=== PATIENT | female | born 1985 | race African-American/Black ===

== ENCOUNTER 2016-10-30 23:23 | Emergency (ER) | payer OTHER ==
[~2016-10-30 23:23] MED LIST: ALBUTEROL17 GM INH; ALDACTONE PO; ALDACTONE100 MG PO; ALPRAZOLAM PO; ALUMINUM POTAS PO; AMOXICILLIN PO; AMOXICILLIN500 M1 PO; AURALGAN OTIC S10 ML AD; AURALGAN OTIC S14 ML OT; BUMEX PO; CARAFATE PO; CARAMEL FLAVOR30 ML PO; CATAFLAM50 MG PO; CHRONULAC10 GM/151 PO; CIPRO HC OTIC S10 ML AD; CIPRO PO; COREG12.5 MG PO; CORGARD PO; DILTIAZEM HCL30 MG PO; FERROUS SULFATE PO; FLAGYL PO; IMURAN50 MG PO; KRISTALOSE10 GM PO; LACTULOSE10 G/15 M1 PO; LACTULOSE10 G/15 M2 PO; LACTULOSE10 G/15 ML PO; LASIX PO; LEVAQUIN PO; LORTAB 5/500 TA1 TA1 PO; MAG-OX 400400 MG PO; NADOLOL20 MG PO; NAPROSYN500 MG PO; NICOTINE TRANSD14 MG EXT; OMEPRAZOLE20 M2 PO; OXYCODONE HCL20 M1 PO; PERCOCET5/325 PO; PHENERGAN PO; PHENERGAN25 MG PO; PREDNISONE PO; PRILOSEC PO; PRILOSEC40 MG PO; PROMETHAZINE12.5 MG PO; PROPRANOLOL HCL20 MG PO; PROTONIX PO; REPREXAIN 7.5-21 TAB PO; ROBAXIN 750750 MG PO; SEROQUEL XR150 MG PO; TRAMADOL HCL50 M2 PO; TUMS500 M1 PO; ULTRAM PO; XANAX1 MG PO; XIFAXAN550 MG PO; XODOL 7.5-300 T1 TAB PO; ZITHROMAX PO; lactulose
[2016-10-31 00:21] LABS: BASOPHIL% 0.1 % (0-2.5); EOSINOPHIL# 0.2 X10e3 (0-0.7); EOSINOPHIL% 3.1 % (0.0-7.0); HEMATOCRIT 29.3 % (35.0-45.0); LYMPHOCYTE# 0.7 X10e3 (1.0-3.5); LYMPHOCYTE% 11.1 % (17.0-45.0); MEAN CELL VOLUME 95.5 FL (83-96); MEAN CORPUSCULAR HEMOGLOBIN 32.7 PG (28-34); MEAN CORPUSCULAR HGB CONC 34.2 g/dL (30-36); MEAN PLATELET VOLUME 9.4 FL (6.5-11.5); MONOCYTE# 0.5 X10e3 (0-1.0); MONOCYTE% 8.1 % (3.0-12.0); NEUTROPHIL# 5.1 X10e3 (1.5-7.1); NEUTROPHIL% 77.6 % (40-75); RED BLOOD COUNT 3.07 X10e (3.90-5.30); RED CELL DISTRIBUTION WIDTH 17.2 % (11.0-15.5); WHITE BLOOD COUNT 6.6 X10e3 (4.0-10.5)
[2016-10-31 00:45] LABS: BILIRUBIN,INDIRECT 5.6 mg/dL (0.0-0.9); BILIRUBIN,TOTAL 7.6 mg/dL (0.2-2.0); CALCIUM SERUM 7.5 mg/dL (8.4-10.2); CREATININE SERUM 0.8 mg/dL (0.6-1.4); GLOM FILT RATE Estimated 115.6 mL/min (>60); POTASSIUM 4.2 mmol/L (3.5-5.1); PROTEIN TOTAL SERUM 5.7 g/dL (6.0-8.3)
[2016-10-31 01:11] LABS: DIFF IND YES; PLATELET COUNT 47 X10e3 (140-420)
[2016-10-31 01:13] LABS: PLATELET ESTIMATE DECREASED (NORMAL)
[2016-10-31 01:14] LABS: BURR CELLS PRESENT; ROULEAUX SLIGHT
== END 2016-10-31 04:15 | disposition home or self-care (01) ==
LOC: CED 23:23
PROVIDERS: Emergency Medicine
DX: G89.29 Other chronic pain (principal); R10.9 Unspecified abdominal pain; K75.4 Autoimmune hepatitis; I11.0 Hypertensive heart disease with heart failure; I50.9 Heart failure, unspecified; J45.909 Unspecified asthma, uncomplicated; F17.210 Nicotine dependence, cigarettes, uncomplicated; Z88.5 Allergy status to narcotic agent; Z88.8 Allergy status to other drugs, medicaments and biological substances
CPT/HCPCS: 36415; 71010; 80048; 80076; 81003; 82140; 82150; 82553; 83605; 83690; 83880; 84484; 84703; 85025; 85610; 86850; 86885; 86900; 86901; 86922; 87086; 87651; 93005; 96365; 96367; 96372; 96375; 96376; 99284; C9113; J0696; J1170; J1200; J2270; J2550; J2765

== ENCOUNTER 2016-11-15 00:19 | Emergency (ER) | payer OTHER ==
[2016-11-15 03:28] LABS: URINE SOURCE CLEAN CATCH
[2016-11-15 03:29] LABS: URINE APPEARANCE CLOUDY; URINE BACTERIA AUWI NEG (NEGATIVE); URINE BLOOD TRACE (NEG); URINE COLOR DK YELLOW; URINE GLUCOSE NEG (NEG); URINE KETONE NEG (NEG); URINE LEUKOCYTE ESTERASE TRACE (NEG); URINE NITRATE NEG (NEG); URINE PROTEIN NEG (NEG); URINE SPECIFIC GRAVITY 1.013 (1.003-1.035); URINE SQUAMOUS EPITHELIAL CELL NONE SEEN /[HPF]
[2016-11-15 03:31] LABS: BASOPHIL% 0.4 % (0-2.5); EOSINOPHIL# 0.1 X10e3 (0-0.7); EOSINOPHIL% 2.4 % (0.0-7.0); HEMATOCRIT 26.3 % (35.0-45.0); HEMOGLOBIN 9.1 gm/dL (12.0-16.0); LYMPHOCYTE# 0.6 X10e3 (1.0-3.5); LYMPHOCYTE% 17.2 % (17.0-45.0); MEAN CELL VOLUME 92.3 FL (83-96); MEAN CORPUSCULAR HEMOGLOBIN 31.9 PG (28-34); MEAN CORPUSCULAR HGB CONC 34.6 g/dL (30-36); MEAN PLATELET VOLUME 8.6 FL (6.5-11.5); MONOCYTE# 0.5 X10e3 (0-1.0); MONOCYTE% 12.8 % (3.0-12.0); NEUTROPHIL# 2.5 X10e3 (1.5-7.1); NEUTROPHIL% 67.2 % (40-75); RED BLOOD COUNT 2.85 X10e (3.90-5.30); RED CELL DISTRIBUTION WIDTH 17.5 % (11.0-15.5); WHITE BLOOD COUNT 3.8 X10e3 (4.0-10.5)
[2016-11-15 03:37] LABS: AMPHETAMINE NEG (NEG); BARBITURATES NEG (NEG); BENZODIAZEPINES NEG (NEG); COCAINE NEG (NEG); MARIJUANA POS (NEG); OPIATES NEG (NEG); TRICYCLIC ANTIDEPRESSANTS NEG (NEG); U METHADONE NEG (NEG)
[2016-11-15 03:46] LABS: CULTURE INDICATED? NO; URINE BILIRUBIN POS (NEG); URINE CRYSTALS CALCIUM OXALATE /[HPF]
[2016-11-15 03:50] LABS: DIFF IND YES; PLATELET COUNT 56 X10e3 (140-420)
[2016-11-15 03:55] LABS: ALKALINE PHOSPHATASE 131 U/L (32-92); ALT (SGPT) 23 U/L (10-40); AMYLASE 27 U/L (0-46); AST (SGOT) 34 U/L (10-42); BILIRUBIN, DIRECT 0.9 mg/dL (0.0-0.2); BILIRUBIN,INDIRECT 2.5 mg/dL (0.0-0.9); BILIRUBIN,TOTAL 3.4 mg/dL (0.2-2.0); BLOOD UREA NITROGEN <5 mg/dL (9-23); CALCIUM SERUM 7.6 mg/dL (8.4-10.2); CARBON DIOXIDE 30 mmol/L (22-31); CHLORIDE 97 mmol/L (100-111); CREATININE SERUM 0.5 mg/dL (0.6-1.4); GLOM FILT RATE Estimated 151.6 mL/min (>60); GLUCOSE FASTING 110 mg/dL (70-110); LIPASE 27 U/L (22-51); PROTEIN TOTAL SERUM 5.4 g/dL (6.0-8.3); SODIUM 129 mmol/L (135-145)
[2016-11-15 03:56] LABS: POTASSIUM 2.8 mmol/L (3.5-5.1)
[2016-11-15 04:08] LABS: ANISOCYTOSIS SL; PLATELET ESTIMATE DECREASED (NORMAL)
== END 2016-11-15 06:35 | disposition home or self-care (01) ==
LOC: CED 00:19
PROVIDERS: Student in an Organized Health Care Education/Training Program
DX: E87.6 Hypokalemia (principal); G89.29 Other chronic pain; K75.9 Inflammatory liver disease, unspecified; F17.210 Nicotine dependence, cigarettes, uncomplicated; K74.60 Unspecified cirrhosis of liver; Z88.6 Allergy status to analgesic agent; Z88.8 Allergy status to other drugs, medicaments and biological substances; Z98.890 Other specified postprocedural states
CPT/HCPCS: 36415; 80048; 80076; 80307; 81003; 82150; 83690; 84703; 85025; 96372; 96374; 99284; J1170; J2550

== ENCOUNTER 2016-11-21 05:39 | Inpatient (IN) | payer OTHER ==
--- NOTE | ~2016-11-21 | DS ---
Unit #: [id number] #: [id number] Patient: CARIN HEMPHILL [id number] [address] [address] [id number] I MR#: [id number] NAME: CARIN HEMPHILL. ROOM: 573 Age: 31 Sex: F Admission Date: 11/21/2016 : 1985 Discharge Date: 11/27/2016 Attending Physician: Jazz Choe M.D. Primary Care Physician: Daniel Dietrich M.D. DISCHARGE SUMMARY DISCHARGE DIAGNOSES 1. Nausea and vomiting. 2. Cirrhosis of the liver. 3. Extended tagwyqsm-mgut-lzxnezcop urinary tract infection. 4. Hepatic encephalopathy. 5. Hypokalemia. 6. Hypomagnesemia. 7. Hyponatremia. HOSPITAL COURSE The patient is a 31-year-old female who presented 11/21/16 secondary to some abdominal pain. She has a history of liver cirrhosis. Patient was started on lactulose, Protonix, and rifaximin. She was started on IV Zosyn for possible gram-negative bacteremia, which was picked up on hospital day two. Patient's mental status stabilized on the lactulose. She underwent large volume paracentesis without incident. The patient's pain control was also modified with increase of her narcotic medicines. Ultimately, the patient's cultures returned growing ESBL producing E. coli. Her antibiotics were switched to Merrem. Patient continued on IV antibiotics and pain control and had placement of a PICC line for IV Merrem once her blood cultures drawn November 23 returned negative. Once the PICC line was placed, the patient was discharged home to continue IV antibiotics for her ESBL. DISCHARGE MEDICATIONS 1. Lactulose 20 g p.o. q.8 hours. 2. Magnesium oxide 400 mg p.o. b.i.d. 3. Phenergan 25 mg p.o. q.4 hours p.r.n. 4. SEROquel 50 mg daily. 5. Nadolol 20 mg p.o. daily. 6. Bumex 2 mg p.o. b.i.d. 7. ProAmatine 10 mg p.o. t.i.d. 8. Eplerenone 50 mg p.o. daily. 9. Oxycodone/acetaminophen 20 mg p.o. t.i.d. 10. Protonix 40 mg p.o. b.i.d. 11. Home on Merrem 500 mg IV q.8 hours through 12/07. FOLLOWUP Patient should follow up with her primary care provider at the end of her antibiotic course. Unit #: [id number] #: [id number] Patient: CARIN HEMPHILL Dictated by... Dave Cardoza/siena TD: 12/08/2016 08:27 JOB #: [id number] DISCHARGE SUMMARY Page 1 of 1 X Chadwick Alberts MD X DISCHARGE SUMMARY
--- NOTE | ~2016-11-21 | XA170 ---
[facility] A Service of [facility] RADIOLOGY TEXT RESULTS PATIENT: CARIN HEMPHILL LOCATION: [place] [address]- : 87 UNIT #: [id number] AGE: [address]: Jazz Choe MD SEX: F ORDER DR: [id number] [facility] [address] [facility] [place], [place] [address] [id number] I MR#: [id number] Acc #: [id number] NAME: CARIN HEMPHILL : 1985 SEX: F STUDY DATE/TIME: 11/24/2016 13:28 UNIT: [facility] ROOM: [facility] STUDY DESCRIPTION: XA Paracentesis W Image Attending Physician: Jazz Choe M.D. Ordering Physician: Patrice Lala M.D. Primary Care Physician: Daniel Dietrich M.D. MEDICAL IMAGING REPORT This report is preliminary unless electronic signature is present EXAM Paracentesis INDICATION Autoimmune hepatitis with cirrhosis. PROCEDURE The risks, benefits, and alteratives to the procedure were explained to the patient, and signed, informed consent was obtained. Preliminary ultrasound of the abdomen was performed; it did not show sufficient volume of fluid for safe paracentesis at this time, especially given this patient's coagulopathy. The procedure was subsequently terminated. IMPRESSION Insufficient volume of fluid for safe paracentesis at this time. Dictated by... Tania Fortune M.D. THIS IS AN ELECTRONICALLY VERIFIED REPORT Tania Fortune M.D. at 11/25/2016 4:41 PM AFF/js TD: 11/25/2016 11:10 JOB #: [id number] MEDICAL IMAGING REPORT Page 1 of 1 COPY
--- NOTE | ~2016-11-21 | FU ---
[facility] Nutrition Therapy DATE: 11/25/16 Patient: CARIN HEMPHILL Physician: KRISTIE Address: [address] [place] [address] Room/Bed: [address] [place] [address], Zip: [place] [address] Admit Date: 11/21/16 Date of : [birth year] Height: 6 2 Weight: 164 74.4 NUTRITION MONITORING/FOLLOW-UP: Reason: follow-up Dx: 31 y/o female admitted for nausea/vomiting Anthropometrics: ht: 6'2" wt: 150# (per pt) (68 kg) BMI 19.3 88% IBW -meditech weight 164# 11/25 Labs: Na+ 131, K+ 2.6, Cl- 97, Glu 111, BUN 7, Creat 0.5, Ca++ 7.5, Alb 2.0, Mg++ 1.3, NH3+ 56, Prealb 3.6 Meds: mag-ox, nadolol, NaCl, roxicodone, lactulose, bumetanide, phenergan, KCl I&O's: 1400/7. BM 11/24 Skin: none noted. Estimated Nutrition Needs: Increased needs 2' pt underweight, PMH, current condition, ?weight loss noted Assessment: Chart reviewed, events noted. RD application support intern visited pt at bedside. Pt was very lethargic and spoke few words but did nod her head yes/no when asked questions. When asked if she ate all of her lunch and breakfast, pt nodded no. When asked if she ate less than half of her meals, pt nodded yes. RD application support intern asked if pt had a poor appetite or nausea and pt nodded yes to both. RD application support intern offered to order ensure supplements to increase pt's protein/kcal intake, pt nodded yes and said she would like strawberry ensure. RD application support intern encouraged pt to eat what she can and drink ensure to prevent further weight loss. RD will continue to follow. Dx: Underweight r/t PMH AEB low BMI of 19.3, 88% IBW -ACTIVE 2) Decreased nutrient intake r/t decreased appetite, n/v AEB pt reported intake <50% of meals Intervention: 1. 2 gm NA diet 2. ensure supplements TID Monitoring, Evaluation and Goals: 1. Oral intake; consume >50% of meals w/no c/o n/v/d -NOT MET 2. Weight; prevent any further unintentional weight loss; promote healthy weight gain -IN PROGRESS 3. Labs; WNL -NOT MET [facility] Nutrition Therapy DATE: 11/25/16 Patient: CARIN HEMPHILL Physician: KRISTIE Address: [address] [place] [address] Room/Bed: [address] [place] [address], Zip: [place] [address] Admit Date: 11/21/16 Date of : [birth year] Height: 6 2 Weight: 164 74.4 4. GI; promote regular GI function -IN PROGRESS ( 11/24) Monitor -PO intake/appetite -weight -Labs Recommendations: 1. Ensure strawberry TID. 2. Replete lytes- K+, Mg++, Na+, Cl- low. 3. Continue current diet order above. Add 6 small meals to current diet order. 4. Encourage adequate PO intake of meals and supplements. RD will f/u per protocol as pt is at mild/moderate nutritional risk. Respectfully, VENCEIA WHEATLEY, international freight forwarder Gutierrez Bhatt MS, RD, LD Food and Nutritional Services [facility] cc: client file
--- NOTE | ~2016-11-21 | CO ---
Unit #: [id number] #: [id number] Patient: CARIN HEMPHILL [id number] [place] [id number] [facility]. [place], [place] [address] [id number] I MR#: [id number] NAME: CARIN HEMPHILL ROOM: 573 Age: 31 Sex: F Admission Date: 11/21/2016 : 1985 Attending Physician: Jazz Choe M.D. Primary Care Physician: Daniel Dietrich M.D. Consultation Date: 11/23/2016 CONSULTATION REPORT REASON FOR CONSULTATION Gram-negative lizzy bacteremia. HISTORY OF PRESENT ILLNESS This is a 31-year-old female who has a significant past medical history. The patient's history is obtained via the chart, discussion with microbiology at [facility], old chart from [facility] and current chart from [facility]. The patient has a history of autoimmune hepatitis with cirrhosis with associated ascites. The patient has had multiple admissions to hospitals secondary to abdominal pain. The patient reports that she has been home approximately 4 days; however, the last discharge note reports that she was discharged on 11/10/2016. At that time the patient was admitted for ascites. She had a paracentesis that was not sent for any cultures, and she had no leukocytosis or fever and was sent home with followup with the GI service. The patient now returns with similar complaints of abdominal pain without fever; however, this time she was noted to have gram-negative bacteremia, and infectious disease was consulted. The patient has been placed on Zosyn, and she is currently awaiting a paracentesis and is being followed by the GI team here, as well. PAST MEDICAL HISTORY 1. Autoimmune hepatitis with cirrhosis and ascites. 2. Congestive heart failure. 3. History of ESBL E-coli urinary tract infection in May of 2016. 4. Alcohol abuse; however, the patient denies. 5. Beta hemolytic strep sepsis in 2013. 6. Anemia. 7. C. diff. infection in 2013. 8. Anxiety. 9. Depression. 10. Esophageal varices. 11. Hepatic encephalopathy. 12. Hypertension. 13. Danya-Cai tear in 2013. 14. Marijuana abuse. 15. MRSA infection in 2015. 16. Pancytopenia secondary to liver disease. 17. Portal hypertension. 18. Splenomegaly. 19. SBP. 20. Thrombocytopenia. Unit #: [id number] #: [id number] Patient: CARIN HEMPHILL PAST SURGICAL HISTORY 1. Bone marrow biopsy. 2. Colonoscopy. 3. EGD. 4. Lap-Band. 5. Liver biopsy. 6. Paracentesis. 7. Spine surgery. ALLERGIES Morphine, ELOY inhibitors, acetaminophen, Aldactone, codeine, hydrocodone and Zofran. The patient denies any antibiotic allergies. MEDICATIONS The patient is currently on Zosyn. For other medications, please refer to the patient's MAR. SOCIAL HISTORY The patient denies any alcohol abuse to me; however, per the notes, she has recent alcohol use approximately 5 years ago. She has positive tobacco abuse, occasional marijuana use. Denies any IV drug abuse. REVIEW OF SYSTEMS The patient denies any fevers, chills, sweats. She denies any shortness of air. She does report some occasional chest discomfort with deep inspiration. She reports abdominal pain but no significant diarrhea. She denies any vomiting to me but positive nausea. She denies any swelling or nonhealing wounds. PHYSICAL EXAMINATION VITAL SIGNS: Temperature is 98.8, pulse 94, blood pressure 90/49, respiratory rate 16. . GENERAL: This is a female in no apparent distress who is sitting up in the bed comfortably. HEENT: Her pupils are equal. NECK: Her neck is supple. CARDIOVASCULAR: S1, S2. Regular rate and rhythm. PULMONARY: Shallow inspiration; however, clear with no evidence of wheezes or rhonchi noted. ABDOMEN: Positive bowel sounds. Somewhat rounded but no significant distention and soft. EXTREMITIES: No clubbing, cyanosis or edema. DIAGNOSTIC STUDIES LABS: BUN 11, creatinine 0.7, sodium 128, potassium 3.7, chloride 97, CO2 27, bilirubin 5.3, AST 31, ALT 24, alkaline phosphatase 93, lipase 30, amylase 27. CK was not checked this admission. Ammonia is 56, which is improved from 86 on admission. Lactic acid was not checked this admission. White blood cell count 6.5, hemoglobin 8.4, hematocrit 24.9, platelets 36, 4% bands. Urinalysis is fairly unremarkable. Blood cultures show 1 of 2 gram-negative rods. DIAGNOSTIC IMAGING: None available this admission. IMPRESSION This is a 31-year-old female with autoimmune hepatitis with multiple admissions to an outside hospital secondary to ascites. The patient had recent paracentesis in early November of this year; however, it was not sent Unit #: [id number] #: [id number] Patient: CARIN HEMPHILL for any culture or cell count. The patient now returns with abdominal pain and some nonspecific complaints. The patient is now showing gram-negative lizzy bacteremia resembling E-coli in one of two blood cultures. With history of ESBL in the past, would recommend just changing Zosyn to meropenem. The patient has no evidence of urinary tract infection, as UA is negative and she denies any symptoms. Other possibilities include questionable SBP, and the patient is awaiting a paracentesis. We will follow up on cell count and culture. GI is also following along with this patient. The patient also has significant pancytopenia/thrombocytopenia secondary to her liver disease, and GI is also following. Will check a CBC in the a.m. Will repeat blood cultures x2 thirty minutes apart. Will place the patient in contact isolation secondary to history of ESBL infection in May of 2016 and follow along with the patient's final culture results. The patient may require CT scan of the abdomen and pelvis pending the patient's paracentesis results, but will determine due to the patient's ongoing clinical status. Thank you for allowing us to participate in the care of this patient. Further recommendations to follow pending the patient's clinical course. Dictated by... Trena Granados A.P.R.N. for Dave Velazquez/otis TD: 11/23/2016 11:20 JOB #: [id number] CONSULTATION REPORT Page 1 of 1 X X CONSULTATION REPORT
--- NOTE | ~2016-11-21 | CO ---
Unit #: [id number] #: [id number] Patient: CARIN HEMPHILL [id number] [address] [place], [place] [address] [id number] I MR#: [id number] NAME: CARIN HEMPHILL. ROOM: 573 Age: 31 Sex: F Admission Date: 11/21/2016 : 1985 Attending Physician: Jazz Choe M.D. Primary Care Physician: Daniel Dietrich M.D. Consultation Date: 11/22/2016 CONSULTATION REPORT REASON FOR CONSULTATION Abdominal pain and cirrhosis. HISTORY OF PRESENTING ILLNESS Ms. Hemphill is a 31-year-old female. She is known to me from previous admissions. For the last 2 years, she has been going to other places. Now, she comes with history of abdominal pain. The patient is significantly sedated right now and can answer only a few words. She denies any nausea, vomiting, or hematemesis. She denies any blood in the stool. She complains of abdominal pain. Her abdomen is mildly distended also. Of note, the patient was recently, within the last 2 weeks, admitted at [facility] for the similar complaints, was treated for bacterial peritonitis. PAST MEDICAL HISTORY Significant for autoimmune hepatitis, history of liver cirrhosis, history of being noncompliant, history of alcoholism and drug abuse, and chronic encephalopathy. FAMILY HISTORY Noncontributory. ALLERGIES To Dilaudid, codeine, aspirin, and Tylenol. MEDICATIONS Current list was reviewed. REVIEW OF SYSTEMS Unable to obtain because the patient is severely obtunded. PHYSICAL EXAMINATION GENERAL: Arousable, in no acute distress. VITAL SIGNS: Stable. Temperature 97.5, pulse 125, respirations 16, and blood pressure of 125/77. HEENT: Pupils are equal and reactive. Sclerae anicteric. Oral mucosa moist. NECK: No JVD. No lymphadenopathy. CHEST: Few scattered rhonchi. Decreased breath sounds at bases. CARDIOVASCULAR: Regular rate and rhythm. No murmurs. ABDOMEN: Distended, but no tenderness. Shifting dullness is present. EXTREMITIES: Without clubbing, cyanosis, or edema. Unit #: [id number] #: [id number] Patient: KANCHAN,CARIN E NEUROLOGIC: Detailed examination is deferred. Mental status changes as described above. DIAGNOSTIC STUDIES LABORATORY RESULTS: Hemoglobin of 10.3, platelet count of 37, and white count of 4.5. LFTs all abnormal, chronically stable. Lipase and amylase were normal. ASSESSMENT AND PLAN 1. The patient with history of cirrhosis, ascites, and abdominal pain. Possible recurrent bacterial peritonitis. Antibiotics have been started. We will do paracentesis and send it for culture and sensitivity, and continue with aggressive medical management for now. She is already testing positive for gram-negative rods in her blood. We will wait for the final identification. 2. Autoimmune hepatitis and cirrhosis. 3. Noncompliant. 4. Chronic encephalopathy. Continue Xifaxan and lactulose. 5. History of EtOH abuse. Thank you, Dr. Carroll, for this interesting consult. We will follow along. Dictated by... Patrice Lala M.D. WILFRED/mika TD: 11/22/2016 13:00 JOB #: [id number] CONSULTATION REPORT Page 1 of 1 X Patrice Lala MD CONSULTATION REPORT
--- NOTE | ~2016-11-21 | A ---
[facility] Nutrition Therapy DATE: 11/22/16 Patient: CARIN HEMPHILL Physician: KRISTIE Address: [address] [place] [address] Room/Bed: [address] [place] [address], Zip: [place] [address] Admit Date: 11/21/16 Date of : [birth year] Height: 6 2 Weight: 140 63.5 NUTRITIONAL ASSESSMENT: REASON: LOW BMI PT IS 31 Y.O. FEMALE ADMITTED FOR NAUSEA/VOMITING PMH: LIVER CIRRHOSIS, ESRD 2' AUTOIMMUNE HEPATITIS, GI BLEED, CHF, PANCYTOPENIA, HEPATIC ENCEPHALOPATHY Anthropometrics: 6'2", WT: 150# (PER PT) (68 KG), BMI: 19.3, 88%IBW [facility] WEIGHT: 140# Labs: GLU: 140, BUN: 8, CREAT: 0.5, CA+:7.7, ALB: 2.4, M.3, K+:3.4, NA+:129 Meds: MAG-OX, PROTONIX, LACTULOSE, PHENERGAN, KCL, NACL I/O & Bowel function: 480/- Skin Integrity: NO KNOWN SKIN ISSUES Estimated Nutrition Needs: INCREASED NEEDS 2' PT UNDERWEIGHT, PMH, CURRENT CONDITION, ?WEIGHT LOSS NOTED Assessment: CHART REVIEWED AND EVENTS NOTED. PT SEEN FOR LOW BMI. PT SLEEPY/LETHARGIC AT TIME OF VISIT. PT MUMBLED WORDS, NOTES WEIGHT IS ~150#. PT UNABLE TO REPORT INTAKE AND APPETITE. PT UNABLE TO REPORT ANY WEIGHT LOSS AT THIS VISIT 2' BEING TOO LETHARGIC. PT UNABLE TO CONDUCT NUTRITION INTERVIEW. PER WALL CHART, PT CONSUMED ~80% BREAKFAS THIS AM. PER [employer], PT WEIGHED ~153# IN AUG 2016 AND 153-165# IN 2012. RD ENCOURAGED ADEQUATE KCAL AND PROTEIN INTAKE, PT DID NOT RESPOND WHEN ASKING IF SHE WANTED ANY SUPPLEMENTS. RD TO FOLLOW. SEE RECOMMENDATIONS BELOW. Dx: UNDERWEIGHT R/T PMH AEB LOW BMI OF 19.3, 88%IBW. Intervention: 1. 2 GM NA DIET Monitoring, Evaluation and Goals: 1. ORAL INTAKE; CONSUME >50% OF MEALS W/NO C/O N/V/D 2. WEIGHTS; PREVENT ANY FURTHER UNINTENTIONAL WEIGHT LOSS; PROMOTE HEALTHY WEIGHT GAIN 3. LABS; WNL 4. GI; PROMOTE REGULAR GI FUNCTION MONITOR: [facility] Nutrition Therapy DATE: 11/22/16 Patient: CARIN Moss KANCHAN Physician: KRISTIE Address: [address] [place], [place] [address] Room/Bed: [address] [place] [address], Zip: [place] [address] Admit Date: 11/21/16 Date of : [birth year] Height: 6 2 Weight: 140 63.5 -PO INTAKE/APPETITE -WEIGHTS -LABS Recommendations: 1. REPLETE LYTES-K+ AND MG LOW 2. CONTINUE CURRENT DIET ORDER ABOVE. ADD 6 SMALL MEALS TO CURRENT DIET ORDER 3. IF PT CONSUME <50% OF MEALS, PLEASE ORDER APPROPRIATE SUPPLEMENTS TID (ENSURE ENLIVE, ENSURE PUDDING, MAGIC CUP, ENSURE CLEAR) FOR ADDITIONAL PROTEIN AND KCAL 4. APPRECIATE FAMILY AND STAFF TO ENCOURAGE ADEQUATE PO INTAKE. ASSIST W/ORDERING MEALS NEEDED RD WILL F/U PER PROTOCOL PT IS MILD/MODERATELY COMPROMISED Respectfully, JABARI SOLOMON MS, RD, LD Food and Nutritional Services [facility] cc: client file
--- NOTE | ~2016-11-21 | XA166 ---
[facility] A Service of [facility] RADIOLOGY TEXT RESULTS PATIENT: CARIN HEMPHILL LOCATION: [facility] [id number] : 87 UNIT #: [id number] AGE: [address]: Jazz Choe MD SEX: F ORDER DR: [id number] [facility] [address] [facility]. [place], [place] [address] [id number] I MR#: [id number] Acc #: [id number] NAME: CARIN HEMPHILL. : 1985 SEX: F STUDY DATE/TIME: 11/26/2016 13:32 UNIT: [facility] ROOM: [facility] STUDY DESCRIPTION: XA PICC Line Placement WO Port Attending Physician: Jazz Choe M.D. Ordering Physician: Jazz Choe M.D. Primary Care Physician: Daniel Dietrich M.D. MEDICAL IMAGING REPORT This report is preliminary unless electronic signature is present EXAM PICC line placement INDICATIONS Need for IV access in a patient with autoimmune hepatitis with cirrhosis. PRE-PROCEDURE The procedure was explained to the patient and/or patient labor union business representative including risks, benefits, potential complications and potential for alternative forms of treatment. Informed consent was obtained, and prior to initiating the procedure a formal timeout procedure was performed. PROCEDURE Using full standard sterile barrier technique, including caps, gowns, gloves, masks, as well as sterile skin preparation and standard sterile draping, the right arm was prepped and draped in the usual fashion, and real-time sterile ultrasound guidance was used to localize an arm vein and to confirm vessel patency. A hard copy ultrasound image was recorded. After local anesthesia with 1% Xylocaine, the vein was punctured using real-time sterile ultrasound guidance, and an 0.018 guidewire was advanced into the superior vena cava, using fluoroscopic guidance. A 4-Macedonian single lumen PICC was then measured and deployed with the tip positioned in the superior vena cava. The position of the line was documented with a radiographic image. The line was secured in place with an adhesive dressing and an antibiotic patch was applied. Total fluoro time was 0.1 minutes. IMPRESSION Successful placement of a 4-Macedonian single lumen PowerPICC via the right arm under ultrasound and fluoroscopic guidance. The tip of the PICC is in good position in the superior vena cava. [facility] A Service of [facility] RADIOLOGY TEXT RESULTS PATIENT: CARIN HEMPHILL LOCATION: [facility] : [birth year] UNIT #: [id number] AGE: [address]: Jazz Choe MD SEX: F ORDER DR: Dictated by... Tania Fortune M.D. THIS IS AN ELECTRONICALLY VERIFIED REPORT Tania Fortune M.D. at 11/29/2016 3:53 PM OKSANA/arturo TD: 11/29/2016 09:21 JOB #: [id number] MEDICAL IMAGING REPORT Page 1 of 1 COPY
--- NOTE | ~2016-11-21 | HP ---
Unit #: [id number] #: [id number] Patient: CARIN HEMPHILL [id number] [address] [address] [id number] I MR#: [id number] NAME: CARIN HEMPHILL. ROOM: 573 Age: 31 Sex: F Admission Date: 11/21/2016 : 1985 Attending Physician: Annette Carroll M.D. Primary Care Physician: Daniel Dietrich M.D. HISTORY AND PHYSICAL REVISED REPORT CHIEF COMPLAINT Abdominal pain. HISTORY OF PRESENT ILLNESS The patient is a 31-year-old female, with the past medical history of end-stage renal disease secondary to autoimmune hepatitis, history of cirrhosis, portal hypertension, GI bleed and a spontaneous bacterial peritonitis and UTI, brought to the emergency room complaining of nausea and vomiting. The patient stated that started having nausea and vomiting associated with abdominal pain since last night, 10 o'clock. The patient was recently discharged from [facility] on the 19 of November status post paracentesis with removal of four and a half liters. The patient also had upper endoscopy and colonoscopy three weeks ago at [facility]. The patient is being admitted for the above reasons. PAST MEDICAL HISTORY History of autoimmune hepatitis, end-stage renal disease, thrombocytopenia, splenomegaly, history of coagulopathy, history of hepatic encephalopathy, pancytopenia, GI bleeds, UTIs. FAMILY HISTORY Reviewed and none. ALLERGIES Dilaudid, codeine, oxycodone, aspirin and Tylenol. HOME MEDICATIONS From the records: 1. Folic acid. 2. Bumex. 3. Calcitriol. 4. Calcium carbonate. 5. Inspra. 6. Magnesium oxide. 7. Midodrine. 8. Nadolol. 9. Pantoprazole. 10. Potassium. 11. Phenergan. 12. Seroquel. 13. Xifaxan. Unit #: [id number] #: [id number] Patient: CARIN HEMPHILL REVIEW OF SYMPTOMS A 14-point review of systems was performed and only pertinent positive findings are described above. Remaining are negative. PHYSICAL EXAMINATION GENERAL APPEARANCE: The patient is lying on a bed, not in acute distress. VITAL SIGNS: Temperature 97.9. Pulse 125. Respiration 16. Blood pressure 125/77. Sating 97% at room air. HEENT: Head: Atraumatic, normocephalic. ENT: Pupils equal, round and reactive to light and accommodation. Positive for icterus and pallor with dry mucous membrane. NECK: Supple. LUNGS: Decreased air entry at the bases. HEART: Regular rate and rhythm. ABDOMEN: Soft. Positive bowel sounds and positive for the tenderness and positive for the ascites. EXTREMITIES: No cyanosis. No clubbing. NEUROLOGIC: Alert, awake, oriented. The patient is sleepy and no gross focal motor deficit. DIAGNOSTIC STUDIES LABORATORY: WBC 4.6, hemoglobin 10.3, hematocrit 29.8, platelets 68. Sodium 133, potassium 2.7, chloride 96, bicarb 29, glucose 96, BUN less than 5, creatinine 0.4, AST 41, ALT 29, alkaline phosphatase 196, total bilirubin 4.1, total protein 5.8, albumin 2.4. Lipase 30, amylase 27. ASSESSMENT 1. Nausea and vomiting. 2. Cirrhosis. 3. Hypokalemia. PLAN To admit the patient to observation. The patient will be receiving the potassium replacement per protocol and check the ammonia level and resume the home medications with lactulose. The patient will be seen by GI doctor, as seen in the past, with Dr. Lala and further recommendations will follow. Dictated by Dave Luna TD: 11/21/2016 17:14 JOB #: [id number] Unit #: [id number] #: [id number] Patient: CARIN HEMPHILL HISTORY AND PHYSICAL Page 1 of 1 X ANNETTE CARROLL MD HISTORY AND PHYSICAL
[2016-11-21 07:42] LABS: BASOPHIL% 0.6 % (0-2.5); DIFF IND YES; EOSINOPHIL# 0.1 X10e3 (0-0.7); HEMATOCRIT 29.8 % (35.0-45.0); HEMOGLOBIN 10.3 gm/dL (12.0-16.0); LYMPHOCYTE# 0.5 X10e3 (1.0-3.5); LYMPHOCYTE% 11.2 % (17.0-45.0); MEAN CELL VOLUME 91.3 FL (83-96); MEAN CORPUSCULAR HEMOGLOBIN 31.5 PG (28-34); MEAN CORPUSCULAR HGB CONC 34.5 g/dL (30-36); MEAN PLATELET VOLUME 9.8 FL (6.5-11.5); MONOCYTE# 0.2 X10e3 (0-1.0); NEUTROPHIL# 3.7 X10e3 (1.5-7.1); NEUTROPHIL% 82.2 % (40-75); PLATELET COUNT 68 X10e3 (140-420); RED BLOOD COUNT 3.26 X10e (3.90-5.30); RED CELL DISTRIBUTION WIDTH 17.8 % (11.0-15.5); WHITE BLOOD COUNT 4.6 X10e3 (4.0-10.5)
[2016-11-21 08:03] LABS: ALBUMIN SERUM 2.4 g/dL (3.5-5.0); ALKALINE PHOSPHATASE 196 U/L (32-92); ALT (SGPT) 29 U/L (10-40); AMYLASE 27 U/L (0-46); AST (SGOT) 41 U/L (10-42); BILIRUBIN, DIRECT 1.2 mg/dL (0.0-0.2); BILIRUBIN,INDIRECT 2.9 mg/dL (0.0-0.9); BILIRUBIN,TOTAL 4.1 mg/dL (0.2-2.0); CALCIUM SERUM 8.4 mg/dL (8.4-10.2); CARBON DIOXIDE 29 mmol/L (22-31); CHLORIDE 96 mmol/L (100-111); CREATININE SERUM 0.4 mg/dL (0.6-1.4); GLOM FILT RATE Estimated 163.2 mL/min (>60); GLUCOSE FASTING 96 mg/dL (70-110); LIPASE 30 U/L (22-51); PROTEIN TOTAL SERUM 5.8 g/dL (6.0-8.3); SODIUM 133 mmol/L (135-145)
[2016-11-21 08:05] LABS: ANISOCYTOSIS MOD; BLOOD UREA NITROGEN <5 mg/dL (9-23); PLATELET ESTIMATE DECREASED (NORMAL); POIKILOCYTOSIS SL; RBC NORMAL YES
[2016-11-21 08:06] LABS: TARGET CELLS SL
[2016-11-21 08:09] LABS: POTASSIUM 2.7 mmol/L (3.5-5.1)
[2016-11-21] MEDS ORDERED: OXYCODONE15 M1 (16:07)
[2016-11-21] MEDS ORDERED: SEROQUEL (16:09)
[2016-11-21] MEDS ORDERED: PHENERGAN (16:10)
[2016-11-21] MEDS ORDERED: EPLERENONE50 MG (16:10)
[2016-11-21] MEDS ORDERED: BUMEX2 MG (16:11)
[2016-11-21] MEDS ORDERED: PRO-AMATINE5 M1 (16:13)
[2016-11-21] MEDS ORDERED: PROTONIX PO (16:13)
[2016-11-21] MEDS ORDERED: MAGOX 400400 MG (16:15)
[2016-11-22 06:46] LABS: HEMATOCRIT 24.2 % (35.0-45.0); MEAN CELL VOLUME 93.6 FL (83-96); MEAN CORPUSCULAR HEMOGLOBIN 32.1 PG (28-34); MEAN CORPUSCULAR HGB CONC 34.3 g/dL (30-36); MEAN PLATELET VOLUME 9.6 FL (6.5-11.5); RED BLOOD COUNT 2.58 X10e (3.90-5.30)
[2016-11-22 06:50] LABS: HEMOGLOBIN 8.3 gm/dL (12.0-16.0)
[2016-11-22 07:00] LABS: CALCIUM SERUM 7.7 mg/dL (8.4-10.2); CREATININE SERUM 0.5 mg/dL (0.6-1.4); GLOM FILT RATE Estimated 151.6 mL/min (>60); MAGNESIUM 1.3 mg/dL (1.6-3.0); POTASSIUM 3.4 mmol/L (3.5-5.1)
[2016-11-22 14:54] LABS: INR 2.8; PARTIAL THROMBOPLASTIN TIME 68.5 SECONDS (23.5-31.3)
[2016-11-23 08:36] LABS: HEMATOCRIT 24.9 % (35.0-45.0); HEMOGLOBIN 8.4 gm/dL (12.0-16.0); MEAN CELL VOLUME 94.2 FL (83-96); MEAN CORPUSCULAR HEMOGLOBIN 31.7 PG (28-34); MEAN CORPUSCULAR HGB CONC 33.7 g/dL (30-36); RED BLOOD COUNT 2.64 X10e (3.90-5.30); RED CELL DISTRIBUTION WIDTH 17.3 % (11.0-15.5); WHITE BLOOD COUNT 6.5 X10e3 (4.0-10.5)
[2016-11-23 08:48] LABS: INR 2.7; PROTHROMBIN TIME (PATIENT) 29.4 SECONDS (10.0-11.7)
[2016-11-23 09:15] LABS: ALBUMIN SERUM 1.9 g/dL (3.5-5.0); BILIRUBIN,TOTAL 5.3 mg/dL (0.2-2.0); BUN/CREATININE RATIO 15.71; CALCIUM SERUM 7.8 mg/dL (8.4-10.2); CREATININE SERUM 0.7 mg/dL (0.6-1.4); GLOM FILT RATE Estimated 135.7 mL/min (>60); MAGNESIUM 1.6 mg/dL (1.6-3.0); POTASSIUM 3.7 mmol/L (3.5-5.1); PROTEIN TOTAL SERUM 4.9 g/dL (6.0-8.3)
[2016-11-23 20:58] LABS: PROTHROMBIN TIME (PATIENT) 22.1 SECONDS (10.0-11.7)
[2016-11-24 06:31] LABS: HEMATOCRIT 21.6 % (35.0-45.0); HEMOGLOBIN 7.3 gm/dL (12.0-16.0); MEAN CORPUSCULAR HEMOGLOBIN 31.6 PG (28-34); MEAN PLATELET VOLUME 10.7 FL (6.5-11.5); RED BLOOD COUNT 2.33 X10e (3.90-5.30); RED CELL DISTRIBUTION WIDTH 17.2 % (11.0-15.5); WHITE BLOOD COUNT 3.9 X10e3 (4.0-10.5)
[2016-11-24 06:38] LABS: PARTIAL THROMBOPLASTIN TIME 59.5 SECONDS (23.5-31.3); PROTHROMBIN TIME (PATIENT) 21.6 SECONDS (10.0-11.7)
[2016-11-24 07:06] LABS: ALBUMIN SERUM 1.8 g/dL (3.5-5.0); BILIRUBIN,TOTAL 4.8 mg/dL (0.2-2.0); CALCIUM SERUM 7.6 mg/dL (8.4-10.2); CREATININE SERUM 0.5 mg/dL (0.6-1.4); GLOM FILT RATE Estimated 151.6 mL/min (>60); MAGNESIUM 1.6 mg/dL (1.6-3.0); POTASSIUM 3.1 mmol/L (3.5-5.1); PROTEIN TOTAL SERUM 4.6 g/dL (6.0-8.3)
[2016-11-25 05:23] LABS: HEMATOCRIT 22.2 % (35.0-45.0); HEMOGLOBIN 7.8 gm/dL (12.0-16.0); MEAN CELL VOLUME 91.3 FL (83-96); MEAN CORPUSCULAR HEMOGLOBIN 31.8 PG (28-34); MEAN CORPUSCULAR HGB CONC 34.9 g/dL (30-36); MEAN PLATELET VOLUME 9.1 FL (6.5-11.5); RED BLOOD COUNT 2.44 X10e (3.90-5.30); RED CELL DISTRIBUTION WIDTH 16.5 % (11.0-15.5); WHITE BLOOD COUNT 2.7 X10e3 (4.0-10.5)
[2016-11-25 10:24] LABS: BILIRUBIN,TOTAL 4.9 mg/dL (0.2-2.0); CALCIUM SERUM 7.5 mg/dL (8.4-10.2); CREATININE SERUM 0.5 mg/dL (0.6-1.4); GLOM FILT RATE Estimated 151.6 mL/min (>60); MAGNESIUM 1.3 mg/dL (1.6-3.0); PHOSPHOROUS 3.1 mg/dL (2.5-4.6); PROTEIN TOTAL SERUM 5.2 g/dL (6.0-8.3)
[2016-11-25 10:43] LABS: POTASSIUM 2.6 mmol/L (3.5-5.1)
[2016-11-25 16:47] LABS: CALCIUM SERUM 7.4 mg/dL (8.4-10.2); CREATININE SERUM 0.5 mg/dL (0.6-1.4); GLOM FILT RATE Estimated 151.6 mL/min (>60); MAGNESIUM 1.7 mg/dL (1.6-3.0); POTASSIUM 3.2 mmol/L (3.5-5.1)
[2016-11-26 10:33] LABS: HEMATOCRIT 23.3 % (35.0-45.0); HEMOGLOBIN 8.1 gm/dL (12.0-16.0); MEAN CORPUSCULAR HGB CONC 34.7 g/dL (30-36); MEAN PLATELET VOLUME 9.6 FL (6.5-11.5); RED BLOOD COUNT 2.54 X10e (3.90-5.30); RED CELL DISTRIBUTION WIDTH 17.2 % (11.0-15.5); WHITE BLOOD COUNT 2.6 X10e3 (4.0-10.5)
[2016-11-26 10:58] LABS: ALBUMIN SERUM 1.8 g/dL (3.5-5.0); ALKALINE PHOSPHATASE 78 U/L (32-92); ALT (SGPT) 17 U/L (10-40); AST (SGOT) 24 U/L (10-42); BILIRUBIN,TOTAL 3.2 mg/dL (0.2-2.0); BLOOD UREA NITROGEN <5 mg/dL (9-23); CALCIUM SERUM 7.3 mg/dL (8.4-10.2); CARBON DIOXIDE 25 mmol/L (22-31); CHLORIDE 99 mmol/L (100-111); CREATININE SERUM 0.5 mg/dL (0.6-1.4); GLOM FILT RATE Estimated 151.6 mL/min (>60); GLUCOSE FASTING 139 mg/dL (70-110); MAGNESIUM 1.4 mg/dL (1.6-3.0); POTASSIUM 3.1 mmol/L (3.5-5.1); PROTEIN TOTAL SERUM 4.9 g/dL (6.0-8.3); SODIUM 131 mmol/L (135-145)
[2016-11-27 07:32] LABS: HEMATOCRIT 23.2 % (35.0-45.0); HEMOGLOBIN 8.1 gm/dL (12.0-16.0); MEAN CELL VOLUME 92.6 FL (83-96); MEAN CORPUSCULAR HEMOGLOBIN 32.4 PG (28-34); MEAN PLATELET VOLUME 9.2 FL (6.5-11.5); RED BLOOD COUNT 2.5 X10e (3.90-5.30); RED CELL DISTRIBUTION WIDTH 16.7 % (11.0-15.5); WHITE BLOOD COUNT 2.5 X10e3 (4.0-10.5)
[2016-11-27 08:10] LABS: ALBUMIN SERUM 1.8 g/dL (3.5-5.0); ALKALINE PHOSPHATASE 84 U/L (32-92); ALT (SGPT) 16 U/L (10-40); AST (SGOT) 21 U/L (10-42); BILIRUBIN,TOTAL 2.6 mg/dL (0.2-2.0); CALCIUM SERUM 7.2 mg/dL (8.4-10.2); CARBON DIOXIDE 27 mmol/L (22-31); CHLORIDE 94 mmol/L (100-111); CREATININE SERUM 0.5 mg/dL (0.6-1.4); GLOM FILT RATE Estimated 151.6 mL/min (>60); GLUCOSE FASTING 140 mg/dL (70-110); MAGNESIUM 1.6 mg/dL (1.6-3.0); PROTEIN TOTAL SERUM 4.8 g/dL (6.0-8.3); SODIUM 131 mmol/L (135-145)
[2016-11-27 08:14] LABS: BLOOD UREA NITROGEN <5 mg/dL (9-23)
[2016-11-27] MEDS ORDERED: MAGOX 400400 MG PO (17:20)
[2016-11-27] MEDS ORDERED: SEROQUEL50 M1 PO (17:22)
[2016-11-27] MEDS ORDERED: BUMEX2 MG PO (17:23)
[2016-11-27] MEDS ORDERED: PROAMATINE10 MG PO (17:24)
[2016-11-27] MEDS ORDERED: OXYCONTIN PO (17:26)
[2016-11-27] MEDS ORDERED: PHENERGAN25 MG PO (17:28)
[2016-11-27] MEDS ORDERED: CORGARD40 MG PO (17:30)
[2016-11-27] MEDS ORDERED: LACTULOSE PO (17:32)
[2016-11-27] MEDS ORDERED: MEROPENEM IV (17:43)
== END 2016-11-27 18:49 | disposition home health service (06) | DRG 432 ==
LOC: CED 05:39 → C5C 11:00 → CED 11:00 → CEDOF 11:00 → C5C 11:00 → CED 11:15 → CEDOF 11:15 → C5C 12:37 → CEDOF 12:37 → C5C 11-22 07:15
PROVIDERS: Emergency Medicine; Internal Medicine; Radiology Diagnostic Radiology
PROC: 30233L1 Transfusion of Nonautologous Fresh Plasma into Peripheral Vein, Percutaneous Approach (ICD-10-PCS; principal; 2016-11-23)
PROC: 30233K1 Transfusion of Nonautologous Frozen Plasma into Peripheral Vein, Percutaneous Approach (ICD-10-PCS; 2016-11-23)
PROC: 02HV33Z Insertion of Infusion Device into Superior Vena Cava, Percutaneous Approach (ICD-10-PCS; 2016-11-26)
PROC: B518YZA Fluoroscopy of Superior Vena Cava using Other Contrast, Guidance (ICD-10-PCS; 2016-11-26)
PROC: B548ZZA Ultrasonography of Superior Vena Cava, Guidance (ICD-10-PCS; 2016-11-26)
DX: K70.31 Alcoholic cirrhosis of liver with ascites (principal); N18.6 End stage renal disease; I13.2 Hypertensive heart and chronic kidney disease with heart failure and with stage 5 chronic kidney disease, or end stage renal disease; A41.9 Sepsis, unspecified organism; G92 Toxic encephalopathy; K65.2 Spontaneous bacterial peritonitis; E44.0 Moderate protein-calorie malnutrition; E87.1 Hypo-osmolality and hyponatremia; N39.0 Urinary tract infection, site not specified; Z68.1 Body mass index [BMI] 19.9 or less, adult; E87.6 Hypokalemia; K75.4 Autoimmune hepatitis; I50.9 Heart failure, unspecified; Z91.19 Patient's noncompliance with other medical treatment and regimen; E83.51 Hypocalcemia; E83.42 Hypomagnesemia; D69.6 Thrombocytopenia, unspecified; D50.9 Iron deficiency anemia, unspecified; K72.90 Hepatic failure, unspecified without coma; B96.20 Unspecified Escherichia coli [E. coli] as the cause of diseases classified elsewhere
CPT/HCPCS: 36415; 76937; 77001; 80048; 80053; 80076; 82140; 82150; 83690; 83735; 84100; 84132; 85025; 85027; 85610; 85730; 86850; 86885; 86900; 86901; 86922; 87040; 87077; 87186; 96360; 96372; 99285; C1751; C9113; J1642; J1940; J2185; J2270; J2543; J2550; J3430; J3475; P9016; P9059

== ENCOUNTER 2016-12-01 20:40 | Inpatient (IN) | payer OTHER ==
--- NOTE | ~2016-12-01 | XA170 ---
[facility] A Service of [facility] & [facility] RADIOLOGY TEXT RESULTS PATIENT: CARIN HEMPHILL LOCATION: [facility] [id number] : [birth year] UNIT #: [id number] AGE: [address]: Luiz Thompson MD SEX: F ORDER DR: [id number] [facility] [address] [facility]. [place], [place] [address] [id number] I MR#: [id number] Acc #: [id number] NAME: CARIN HEMPHILL. : 1985 SEX: F STUDY DATE/TIME: 12/03/2016 14:47 UNIT: [facility] ROOM: [facility] STUDY DESCRIPTION: XA Paracentesis W Image Attending Physician: Luiz Thompson M.D. Ordering Physician: Arun Hernandez M.D. Primary Care Physician: Daniel Dietrich M.D. MEDICAL IMAGING REPORT This report is preliminary unless electronic signature is present EXAM Ultrasound-guided paracentesis. INDICATION Ms. Hemphill is a 31-year with history of cirrhosis secondary to autoimmune hepatitis. She has been referred for possible paracentesis. PROCEDURE The risks, benefits, and alternatives to the procedure were explained to the patient and signed, informed consent was obtained. She was placed supine on her stretcher. Preliminary ultrasound of the abdomen was performed. Patient's largest volume of fluid was in the left lower quadrant. Overlying skin was marked. Skin and subcutaneous tissues were anesthetized with buffered lidocaine. Yueh catheter was advanced and very bloody material was aspirated. Due to the bloodiness of the material, as well as this patient's known large abdominal wall varices, only about 60 mL were removed. Manual pressure was then applied until hemostasis was achieved and the patient was transferred back to her room. She was instructed to the on bedrest with the left side down for 3 hours and the presence of the patient's large varices were discussed with her physician. IMPRESSION The patient does appear to have a moderate volume ascites with the largest volume within the left lower quadrant. I did attempt to access this fluid. I removed about 60 mL of very bloody material. Because of this patient's known history of large abdominal wall varices, I did only remove the 60 mL and following removal of the catheter, manual pressure was applied until hemostasis was obtained. Ultrasound was used during this procedure and permanent images were saved. Dictated by... [facility] A Service of [facility] RADIOLOGY TEXT RESULTS PATIENT: CARIN HEMPHILL LOCATION: [place] [address] : [birth year] UNIT #: [id number] AGE: [address]: Luiz Thompson MD SEX: F ORDER DR: Tania Fortune M.D. THIS IS AN ELECTRONICALLY VERIFIED REPORT Tania Fortune M.D. at 12/06/2016 5:21 PM OKSANA/nohemy TD: 12/06/2016 15:49 JOB #: [id number] MEDICAL IMAGING REPORT Page 1 of 1 COPY
--- NOTE | ~2016-12-01 | DS ---
Unit #: [id number] #: [id number] Patient: CARIN HEMPHILL [id number] [address] [place], [place] [address] [id number] I MR#: [id number] NAME: CARIN HEMPHILL ROOM: 571 Age: 31 Sex: F Admission Date: 12/02/2016 : 1985 Discharge Date: 12/05/2016 Attending Physician: Luiz Thompson M.D. Primary Care Physician: Daniel Dietrich M.D. DISCHARGE SUMMARY TRANSFER SUMMARY DATE OF TRANSFER 12/05/16 PLACE OF TRANSFER [facility]. REASON FOR TRANSFER GI/liver transplant evaluation. HISTORY OF PRESENT ILLNESS The patient is a 31-year-old female, prior history of autoimmune hepatitis diagnosed at age 14. It has progressed to cirrhosis with portal hypertension, varices of the esophagus requiring numerous endoscopies in the past with banding, who presented with similar symptoms. She had mental status changes and/or decline while she was at home. She also was noted to have increased abdominal swelling consistent with ascites and, thus, was admitted for the same. While here, consultation was placed to Dr. Lala of Gastroenterology services. The patient was initiated on lactulose as well as Xifaxan. An attempt was done for paracentesis. Unfortunately, during the procedure, there were numerous abdominal wall varices which were noted and only hemorrhage/bloody effusion was noted and paracentesis was unable to be performed. After review and discussion with the patient's family and a consideration of overall decline and consideration of her autoimmune hepatitis and associated cirrhosis, a decision has been made for the patient to be transferred to [facility] for evaluation by [facility] as well as by the transplant team for possible liver transplant. CURRENT CLINICAL DIAGNOSES 1. Autoimmune hepatitis with progression to cirrhosis. 2. Portal hypertension. 3. 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 4. Associated splenomegaly. 5. Pancytopenia. 6. Recent hospital admission secondary to extended spectrum betalactamase bacteremia, currently on Merrem per Dr. Boateng and associates. 7. Nonischemic cardiomyopathy with ejection fraction of approximately Unit #: [id number] #: [id number] Patient: CARIN HEMPHILL 45%. DISCHARGE MEDICATIONS 1. Merrem 500 mg IV q.6 until December 07, 2016. 2. Klor-Con 20 mEq p.o. t.i.d. 3. OxyContin 20 mg p.o. q.8. 4. Protonix 40 mg p.o. b.i.d. 5. Midodrine 10 mg p.o. q.8. 6. Bumex 1 mg IV q.12. 7. Nadolol 20 mg p.o. daily. 8. Lactulose 20 g p.o. q.8. 9. Mag ox 400 mg p.o. b.i.d. 10. Xifaxan 550 mg p.o. b.i.d. 11. Phenergan 12.5 mg IV q.6 p.r.n. DISCHARGE DISPOSITION [facility]. CONDITION Stable. Dictated by... Dave Cabrera/manasa TD: 12/06/2016 07:16 JOB #: [id number] DISCHARGE SUMMARY Page 1 of 1 X Luiz Thompson MD X DISCHARGE SUMMARY
--- NOTE | ~2016-12-01 | HP ---
Unit #: [id number] #: [id number] Patient: CARIN HEMPHILL [id number] [address] [address] [id number] E MR#: [id number] NAME: CARIN HEMPHILL. ROOM: Age: 31 Sex: F Admission Date: 12/01/2016 : 1985 Attending Physician: Jason Hartman M.D. Primary Care Physician: Daniel Dietrich M.D. HISTORY AND PHYSICAL CHIEF COMPLAINT Symptomatic ascites with abdominal pain, hypokalemia. HISTORY This pleasant 31-year-old female with autoimmune hepatitis now progressed to cirrhosis with portal hypertension and recurrent ascites, is admitted for symptomatic ascites. The patient was last admitted to this hospital 11/21 through 11/27/2016 for abdominal pain. Blood cultures were positive for ESBL and the patient was seen in consultation with Infectious Disease. She is receiving IV meropenem at home. Has developed increasing abdominal swelling, poor p.o. intake due to abdominal swelling with right upper quadrant pain. No fevers, sweats or chills with the above. Also notes pedal edema. On examination, she has fairly impressive ascites. She could not undergo a paracentesis last hospitalization due to her coagulopathy and thrombocytopenia. In our ER, she was given a small dose of morphine, Phenergan and supplemental potassium. Does receive Nplate injections, but missed a dose or two. PAST MEDICAL HISTORY 1. Autoimmune hepatitis since age 14. This has progressed to cirrhosis with portal hypertension and esophageal varices requiring multiple endoscopies with banding. Patient has associated hepatic encephalopathy, recurrent ascites, splenomegaly, coagulopathy and pancytopenia. 2. Splenomegaly with associated pancytopenia. 3. Admission 2007 for spontaneous bacterial peritonitis with Gram-negative sepsis. 4. Recent admission for ESBL bacteremia. 5. History of MRSA. 6. History of C. difficile colitis. 7. Beta hemolytic strep sepsis 2013. 8. History of a liver mass status post liver biopsy. 9. Nonischemic cardiomyopathy, previous ejection fraction 45% to 50%. 10. Migraine headaches. 11. History of hyperkalemia due to Aldactone in the past. 12. Bone marrow biopsy. 13. Colonoscopy, hemorrhoids were discovered. ALLERGIES Intolerant to Tylenol, codeine, ELOY inhibitors, aspirin, spironolactone and Zofran. Unit #: [id number] #: [id number] Patient: CARIN HEMPHILL HOME MEDICATIONS Home medications are uncertain. I do not have a discharge summary from patient's last hospitalization. I believe she takes: 1. Phenergan 2. Protonix 3. Magnesium oxide 4. Nplate, although has missed a couple doses 5. Bumex 6. Possibly ProAmatine 7. OxyContin 20 mg t.i.d. 8. Phenergan p.r.n. 9. Nadolol 10. Lactulose 11. Meropenem 500 mg IV q.6 hours until 12/07/2016 12. Patient states that she takes potassium 20 mEq t.i.d. and zinc along with Linzess and Fosamax. FAMILY HISTORY Hypertension, diabetes mellitus, prostate cancer. SOCIAL HISTORY The patient lives with her mother. Smokes a few cigarettes daily. Does not drink alcohol. Does not use illicit drugs. REVIEW OF SYSTEMS Notable for abdominal pain, increasing ascites, pedal edema, autoimmune hepatitis, coagulopathy, splenomegaly, hepatic encephalopathy, esophageal varices, recurrent ascites, splenomegaly, pancytopenia, polymicrobial bacteremia, liver mass, nonischemic cardiomyopathy, migraine headaches, above-mentioned surgeries. All other systems were reviewed and are otherwise negative. PHYSICAL EXAMINATION GENERAL: Pleasant, chronically ill-appearing 31-year-old female. VITAL SIGNS: Temperature 98.8, pulse 118, respirations 15, blood pressure 124/77, O2 saturation 100% on room air. HEENT EXAMINATION: Eyes PERRLA. Extraocular muscles are intact. Pharynx is benign. NECK: Supple without adenopathy or thyromegaly. CHEST: Clear. CARDIAC: Normal S1 and S2 without S3, S4 or murmur. ABDOMEN: Bowel sounds are present. Patient has large-volume ascites, but the abdomen is soft. She is tender right mid to right upper quadrant, but no rebound or guarding. EXTREMITIES: Notable for 1+ bilateral pedal edema. Pedal pulses are present. NEUROLOGIC EXAM: Patient is awake, alert, oriented. Cranial nerves are intact. Equal strength throughout. DIAGNOSTIC STUDIES ADMISSION LABORATORY: Hematocrit 25.8, down from 27.7 yesterday. Normal white count. Platelet count is 41, which is stable. SMA-12: Sodium 130, potassium 2.3, chloride 98, calcium 6.7, protein 5.8, albumin 2, bilirubin 5.1 (mostly indirect). Urine is negative. Unit #: [id number] #: [id number] Patient: CARIN HEMPHILL ASSESSMENT 1. Symptomatic large-volume ascites. 2. Extended spectrum beta-lactamase (ESBL) bacteremia on meropenem intravenously. 3. Hypokalemia secondary to diuretics. 4. Autoimmune hepatitis with cirrhosis and portal hypertension along with coagulopathy, pancytopenia and hepatic encephalopathy. 5. Nonischemic cardiomyopathy. 6. Splenomegaly secondary to cirrhosis with pancytopenia. PLANS 1. Replace potassium, check magnesium. 2. Will obtain coags and plan platelet transfusion, vitamin K and FFP so paracentesis can be performed. 3. Nplate subcu, patient missed a dose or two. 4. Pain control. 5. Check ammonia level. 6. GI consultation. Dictated by Sherin Mckinney M.D. AML/psc TD: 12/02/2016 01:41 JOB #: [id number] HISTORY AND PHYSICAL Page 1 of 1 X Sherin Mckinney MD X HISTORY AND PHYSICAL
--- NOTE | ~2016-12-01 | EKG ---
PATIENT: CARIN HEMPHILL UNIT #: [id number] Ventricular Rate: 91 BPM Atrial Rate: 91 BPM P-R Interval: 136 ms QRS Duration: 92 ms Q-T Interval: 286 ms QTC Calculation(Bezet): 351 ms P Greeley: 29 degrees Calculated R Greeley: 16 degrees Calculated T Greeley: 27 degrees Diagnosis Line: Normal sinus rhythm Diagnosis Line: Nonspecific T wave abnormality Diagnosis Line: Abnormal ECG Diagnosis Line: When compared with ECG of 02-DEC-2016 02:15, Diagnosis Line: (unconfirmed) Diagnosis Line: Sinus rhythm has replaced Junctional rhythm Diagnosis Line: ST no longer depressed in Anterior leads Diagnosis Line: Confirmed by MAGDIEL CONNELL MD ([id number]) on 12/02/2016 Diagnosis Line: 8:32:55 PM INTERPRETING MD: KO TOMLINSON
[~2016-12-01 20:40] MED LIST changes: +BUMEX2 MG; +BUMEX2 MG PO; +CORGARD40 MG PO; +EPLERENONE50 MG; +LACTULOSE PO; +MAGOX 400400 MG; +MAGOX 400400 MG PO; +MEROPENEM IV; +OXYCODONE15 M1; +OXYCONTIN PO; +PHENERGAN; +PRO-AMATINE5 M1; +PROAMATINE10 MG PO; +SEROQUEL; +SEROQUEL50 M1 PO
[2016-12-01 21:29] LABS: URINE SOURCE CLEAN CATCH
[2016-12-01 21:35] LABS: URINE APPEARANCE CLEAR; URINE BILIRUBIN NEG (NEG); URINE BLOOD TRACE (NEG); URINE COLOR YELLOW; URINE GLUCOSE NEG (NEG); URINE KETONE NEG (NEG); URINE LEUKOCYTE ESTERASE NEG (NEG); URINE NITRATE NEG (NEG); URINE PH 7.5 (5-8); URINE PROTEIN NEG (NEG); URINE SPECIFIC GRAVITY 1.007 (1.003-1.035); URINE UROBILINOGEN 0.2 MG/DL (NEG)
[2016-12-01 21:38] LABS: URBCS1 AUWI 0-2 /[HPF] (0-2); URINE BACTERIA AUWI NEG (NEGATIVE); URINE SQUAMOUS EPITHELIAL CELL NONE SEEN /[HPF]; UWBCS1 AUWI 0-2 (0-5)
[2016-12-01 21:43] LABS: CULTURE INDICATED? NO
[2016-12-01 22:21] LABS: BASOPHIL% 0.3 % (0-2.5); EOSINOPHIL# 0.1 X10e3 (0-0.7); EOSINOPHIL% 1.9 % (0.0-7.0); HEMATOCRIT 25.8 % (35.0-45.0); HEMOGLOBIN 8.8 gm/dL (12.0-16.0); LYMPHOCYTE# 0.6 X10e3 (1.0-3.5); LYMPHOCYTE% 12.8 % (17.0-45.0); MEAN CELL VOLUME 91.6 FL (83-96); MEAN CORPUSCULAR HEMOGLOBIN 31.4 PG (28-34); MEAN CORPUSCULAR HGB CONC 34.3 g/dL (30-36); MEAN PLATELET VOLUME 9.7 FL (6.5-11.5); MONOCYTE# 0.5 X10e3 (0-1.0); MONOCYTE% 10.1 % (3.0-12.0); NEUTROPHIL# 3.6 X10e3 (1.5-7.1); NEUTROPHIL% 74.9 % (40-75); RED BLOOD COUNT 2.82 X10e (3.90-5.30); RED CELL DISTRIBUTION WIDTH 16.4 % (11.0-15.5); WHITE BLOOD COUNT 4.8 X10e3 (4.0-10.5)
[2016-12-01 22:46] LABS: ALKALINE PHOSPHATASE 139 U/L (32-92); ALT (SGPT) 16 U/L (10-40); AST (SGOT) 32 U/L (10-42); BILIRUBIN, DIRECT 1.2 mg/dL (0.0-0.2); BILIRUBIN,INDIRECT 3.9 mg/dL (0.0-0.9); BILIRUBIN,TOTAL 5.1 mg/dL (0.2-2.0); CALCIUM SERUM 6.7 mg/dL (8.4-10.2); CARBON DIOXIDE 28 mmol/L (22-31); CHLORIDE 98 mmol/L (100-111); CREATININE SERUM 0.4 mg/dL (0.6-1.4); GLOM FILT RATE Estimated 163.2 mL/min (>60); GLUCOSE FASTING 102 mg/dL (70-110); LIPASE 38 U/L (22-51); PROTEIN TOTAL SERUM 5.8 g/dL (6.0-8.3); SODIUM 130 mmol/L (135-145)
[2016-12-01 22:51] LABS: BLOOD UREA NITROGEN <5 mg/dL (9-23); POTASSIUM 2.3 mmol/L (3.5-5.1)
[2016-12-01 22:52] LABS: DIFF IND YES; PLATELET COUNT 41 X10e3 (140-420)
[2016-12-01 22:58] LABS: ANISOCYTOSIS SL; HYPOCHROMIA SL; PLATELET ESTIMATE DECREASED (NORMAL)
[2016-12-02 07:18] LABS: BASOPHIL% 0.4 % (0-2.5); EOSINOPHIL# 0.1 X10e3 (0-0.7); EOSINOPHIL% 3.9 % (0.0-7.0); HEMATOCRIT 24.6 % (35.0-45.0); HEMOGLOBIN 8.4 gm/dL (12.0-16.0); LYMPHOCYTE# 0.7 X10e3 (1.0-3.5); LYMPHOCYTE% 21.1 % (17.0-45.0); MEAN CELL VOLUME 92.3 FL (83-96); MEAN CORPUSCULAR HEMOGLOBIN 31.6 PG (28-34); MEAN CORPUSCULAR HGB CONC 34.3 g/dL (30-36); MEAN PLATELET VOLUME 9.9 FL (6.5-11.5); MONOCYTE# 0.3 X10e3 (0-1.0); MONOCYTE% 8.8 % (3.0-12.0); NEUTROPHIL% 65.8 % (40-75); RED BLOOD COUNT 2.67 X10e (3.90-5.30); RED CELL DISTRIBUTION WIDTH 16.6 % (11.0-15.5); WHITE BLOOD COUNT 3.1 X10e3 (4.0-10.5)
[2016-12-02 07:21] LABS: PLATELET COUNT 37 X10e3 (140-420)
[2016-12-02 07:22] LABS: DIFF IND NO
[2016-12-02 08:21] LABS: ALBUMIN SERUM 1.8 g/dL (3.5-5.0); ALKALINE PHOSPHATASE 126 U/L (32-92); ALT (SGPT) 17 U/L (10-40); AST (SGOT) 29 U/L (10-42); BILIRUBIN,TOTAL 4.7 mg/dL (0.2-2.0); BLOOD UREA NITROGEN <5 mg/dL (9-23); CARBON DIOXIDE 30 mmol/L (22-31); CHLORIDE 98 mmol/L (100-111); CREATININE SERUM 0.4 mg/dL (0.6-1.4); GLOM FILT RATE Estimated 163.2 mL/min (>60); GLUCOSE FASTING 96 mg/dL (70-110); MAGNESIUM 1.1 mg/dL (1.6-3.0); PROTEIN TOTAL SERUM 5.4 g/dL (6.0-8.3); SODIUM 130 mmol/L (135-145)
[2016-12-02 08:26] LABS: POTASSIUM 2.9 mmol/L (3.5-5.1)
[2016-12-03 06:44] LABS: HEMATOCRIT 23.3 % (35.0-45.0); HEMOGLOBIN 8.1 gm/dL (12.0-16.0); MEAN CELL VOLUME 91.4 FL (83-96); MEAN CORPUSCULAR HEMOGLOBIN 31.6 PG (28-34); MEAN CORPUSCULAR HGB CONC 34.5 g/dL (30-36); MEAN PLATELET VOLUME 9.5 FL (6.5-11.5); RED BLOOD COUNT 2.55 X10e (3.90-5.30); RED CELL DISTRIBUTION WIDTH 16.4 % (11.0-15.5); WHITE BLOOD COUNT 2.8 X10e3 (4.0-10.5)
[2016-12-03 09:14] LABS: ALBUMIN SERUM 1.7 g/dL (3.5-5.0); ALKALINE PHOSPHATASE 105 U/L (32-92); ALT (SGPT) 15 U/L (10-40); AST (SGOT) 31 U/L (10-42); BILIRUBIN,TOTAL 6.1 mg/dL (0.2-2.0); CALCIUM SERUM 7.5 mg/dL (8.4-10.2); CARBON DIOXIDE 29 mmol/L (22-31); CHLORIDE 98 mmol/L (100-111); CREATININE SERUM 0.4 mg/dL (0.6-1.4); GLOM FILT RATE Estimated 163.2 mL/min (>60); GLUCOSE FASTING 106 mg/dL (70-110); MAGNESIUM 1.3 mg/dL (1.6-3.0); POTASSIUM 3.4 mmol/L (3.5-5.1); PROTEIN TOTAL SERUM 4.9 g/dL (6.0-8.3); SODIUM 132 mmol/L (135-145)
[2016-12-03 09:15] LABS: BLOOD UREA NITROGEN <5 mg/dL (9-23)
[2016-12-03 09:19] LABS: INR 2.5; PROTHROMBIN TIME (PATIENT) 27.4 SECONDS (10.0-11.7)
[2016-12-03 16:07] LABS: BF TOTAL NUCLEATED CELL COUNT 3256 CMM (0-100); BODY FLUID APPEARANCE BLOODY; BODY FLUID RBC 2701022 CMM; BODY FLUID SOURCE ASCITES
[2016-12-04 07:38] LABS: ALBUMIN SERUM 1.7 g/dL (3.5-5.0); ALKALINE PHOSPHATASE 137 U/L (32-92); ALT (SGPT) 16 U/L (10-40); AST (SGOT) 33 U/L (10-42); CALCIUM SERUM 7.8 mg/dL (8.4-10.2); CARBON DIOXIDE 32 mmol/L (22-31); CHLORIDE 100 mmol/L (100-111); CREATININE SERUM 0.5 mg/dL (0.6-1.4); GLOM FILT RATE Estimated 151.6 mL/min (>60); GLUCOSE FASTING 92 mg/dL (70-110); MAGNESIUM 1.6 mg/dL (1.6-3.0); PHOSPHOROUS 3.5 mg/dL (2.5-4.6); POTASSIUM 3.3 mmol/L (3.5-5.1); PROTEIN TOTAL SERUM 4.9 g/dL (6.0-8.3); SODIUM 136 mmol/L (135-145)
[2016-12-04 07:39] LABS: BILIRUBIN,TOTAL 3.7 mg/dL (0.2-2.0); BLOOD UREA NITROGEN <5 mg/dL (9-23)
[2016-12-05 05:59] LABS: MAGNESIUM 1.8 mg/dL (1.6-3.0); POTASSIUM 4.1 mmol/L (3.5-5.1)
[2016-12-05 07:55] LABS: AMPHETAMINE NEG (NEG); BARBITURATES NEG (NEG); BENZODIAZEPINES NEG (NEG); COCAINE NEG (NEG); MARIJUANA POS (NEG); OPIATES POS (NEG); TRICYCLIC ANTIDEPRESSANTS NEG (NEG); U METHADONE NEG (NEG)
== END 2016-12-05 14:15 | DRG 441 ==
LOC: CED 20:40 → C5C 12-02 01:25 → CEDOF 12-02 01:25 → C5C 12-02 01:38 → CED 12-02 01:38 → C5C 12-02 07:42 → CEDOF 12-02 07:42 → C5C 12-02 08:50
PROVIDERS: Family Medicine; Internal Medicine; Nurse Practitioner
PROC: 0W9G30Z Drainage of Peritoneal Cavity with Drainage Device, Percutaneous Approach (ICD-10-PCS; principal; 2016-12-03)
DX: K75.4 Autoimmune hepatitis (principal); I50.23 Acute on chronic systolic (congestive) heart failure; D61.818 Other pancytopenia; I42.9 Cardiomyopathy, unspecified; E46 Unspecified protein-calorie malnutrition; R18.8 Other ascites; K76.6 Portal hypertension; Z68.1 Body mass index [BMI] 19.9 or less, adult; K74.60 Unspecified cirrhosis of liver; Z86.14 Personal history of Methicillin resistant Staphylococcus aureus infection; G43.909 Migraine, unspecified, not intractable, without status migrainosus; Z72.0 Tobacco use; E87.6 Hypokalemia; K72.90 Hepatic failure, unspecified without coma; R16.1 Splenomegaly, not elsewhere classified; L29.9 Pruritus, unspecified
CPT/HCPCS: 36415; 80048; 80053; 80076; 80307; 81003; 82140; 83690; 83735; 84100; 84132; 84703; 85025; 85027; 85610; 86850; 86870; 86885; 86900; 86901; 86905; 86922; 87070; 87205; 89051; 93005; 96374; 96375; 99285; J2185; J2270; J2550; J2796; J2930; J3475

== ENCOUNTER 2016-12-24 03:09 | Inpatient (IN) | payer OTHER ==
--- NOTE | ~2016-12-24 | CR157 ---
[facility] A Service of [facility] & [facility] RADIOLOGY TEXT RESULTS PATIENT: CARIN HEMPHILL LOCATION: [facility] [id number] : [birth year] UNIT #: [id number] AGE: [address]: Sandhya Azul MD SEX: F ORDER DR: [id number] [place] [id number] [facility]. [place], [place] [address] [id number] MR#: [id number] Acc #: [id number] NAME: CARIN HEMPHILL : 1985 SEX: F STUDY DATE/TIME: 12/24/2016 UNIT: [facility] ROOM: STUDY DESCRIPTION: CR Humerus Min 2 View Rt Attending Physician: Juan Telles Aprn Ordering Physician: Pernell Figueroa D.O. Primary Care Physician: Daniel Dietrich M.D. MEDICAL IMAGING REPORT This report is preliminary unless electronic signature is present EXAM Right humerus 2 views, 10/24/2016 at 10:59 hours HISTORY Painful swollen right arm after IV site infiltrated. COMPARISON None. FINDINGS AP and lateral views of the right humerus demonstrate no bone lesion or fracture. There is diffuse hyperdensity in the soft tissues of the antecubital fossa and extending proximally in the medial aspect of the arm, likely representing intravenous contrast which infiltrated at the antecubital fossa IV site for CT abdomen pelvis performed at 08:05 hours today. The contrast appears linear in diffuse and is likely dissecting along the fascial planes. There is no focal area of accumulation. The area opacified measures approximately 27.5 cm longitudinally x 4.8 cm transverse. No soft tissue gas is seen. IMPRESSION 1. Right humerus film confirms the presence of diffuse hyperdensity in the soft tissues of the antecubital fossa and the right upper arm covering an area of 27.5 x 4.8 cm most likely the contrast material which infiltrated at the antecubital fossa on the earlier CT abdomen injections today at 08:05 hours. The contrast appears to be dissecting along the fascial planes. It does not appear to be in a large loculated area. 2. No underlying bone lesion. No soft tissue gas. COMMENT [facility] A Service of [facility] & [facility] RADIOLOGY TEXT RESULTS PATIENT: CARIN HEMPHILL LOCATION: [facility] [id number] : [birth year] UNIT #: [id number] AGE: [address]: Sandhya Azul MD SEX: F ORDER DR: The IV infiltration protocol was initiated in CT. STAT * RESULT Dictated by... Isabel Nguyễn M.D. THIS IS AN ELECTRONICALLY VERIFIED REPORT Isabel Nguyễn M.D. at 12/24/2016 2:31 PM THIEN/sg TD: 12/24/2016 11:47 JOB #: [id number] MEDICAL IMAGING REPORT Page 1 of 1 COPY
--- NOTE | ~2016-12-24 | DS ---
Unit #: [id number] #: [id number] Patient: CARIN HEMPHILL [id number] [address] [address] [id number] MR#: [id number] NAME: CARIN HEMPHILL ROOM: [facility] Age: 31 Sex: F Admission Date: 12/24/2016 : 1985 Discharge Date: 12/27/2016 Attending Physician: Chadwick Alberts M.D. Primary Care Physician: Daniel Dietrich M.D. DISCHARGE SUMMARY DISCHARGE DIAGNOSES 1. Hepatic encephalopathy. 2. Autoimmune hepatitis with cirrhosis and ascites. 3. Bilateral pleural effusions. 4. Chronic systolic congestive heart failure. HOSPITAL COURSE The patient is a 31-year-old female, presented to [facility] emergency department with the complaint of severe abdominal pain. She states that it has been progressive over the course of three days. The patient was noted to have an amylase and lipase of 67 and 85 respectively, ammonia was elevated at 101. The patient was admitted and started on lactulose and Xifaxan. Given her ascites she was taken for a paracentesis. She was noted to have significant pleural effusions and was taken for thoracentesis as well. The patient's mental status/encephalopathy improved with lactulose. At the time of this dictation, she is completely appropriate, and is not confused in any way. Discussion with the patient reveals that after her most recent hospitalization and discharge from here on December 06, her pain medication disappeared. I think that this plays a significant role in her readmission here. I have discussed this with the patient, written her some pain medication to get her by until she sees Dr. Dietrich at the beginning of January. DISCHARGE MEDICATIONS 1. Phenergan 25 mg p.o. q.4h p.r.n. 2. Eplerenone 25 mg daily 3. Protonix 40 mg p.o. b.i.d. 4. Magnesium oxide 400 mg p.o. b.i.d. 5. Seroquel 50 mg p.o. q.h.s. 6. Bumex 2 mg daily 7. Midodrine 10 mg p.o. t.i.d. 8. Oxycodone 20 mg p.o. t.i.d. as needed 9. Lactulose 20 grams p.o. q.8h 10. Nadolol 40 mg p.o. daily FOLLOWUP As mentioned above. The patient is to follow up with Dr. Dietrich at her regularly scheduled appointment on January 08. Unit #: [id number] #: [id number] Patient: CARIN HEMPHILL Dictated by... Dave Cardoza/godwin TD: 12/29/2016 11:12 JOB #: [id number] DISCHARGE SUMMARY Page 1 of 1 X Chadwick Alberts MD X DISCHARGE SUMMARY
--- NOTE | ~2016-12-24 | EKG ---
PATIENT: CARIN HEMPHILL UNIT #: [id number] Ventricular Rate: 106 BPM Atrial Rate: 106 BPM P-R Interval: 128 ms QRS Duration: 92 ms Q-T Interval: 358 ms QTC Calculation(Bezet): 475 ms P Osborn: 28 degrees Calculated R Osborn: 28 degrees Calculated T Osborn: 45 degrees Diagnosis Line: Sinus tachycardia Diagnosis Line: Nonspecific T wave abnormality Diagnosis Line: Abnormal ECG Diagnosis Line: No previous ECGs available Diagnosis Line: Confirmed by DALIA DE MD ([id number]) on Diagnosis Line: 12/24/2016 7:34:51 AM INTERPRETING MD: KENISHA TOMLINSON
--- NOTE | ~2016-12-24 | CO ---
Unit #: [id number] #: [id number] Patient: CARIN HEMPHILL [id number] [address] [place], [place] [address] [id number] I MR#: [id number] NAME: CARIN HEMPHILL ROOM: 557 Age: 31 Sex: F Admission Date: 12/24/2016 : 1985 Attending Physician: Sandhya Azul M.D. Primary Care Physician: Daniel Dietrich M.D. Consultation Date: 12/25/2016 CONSULTATION REPORT REASON FOR EVAL Pancytopenia; please evaluate. HISTORY OF PRESENT ILLNESS A 31-year-old lady who has had autoimmune hepatitis since age 14 but started having pancytopenia since 2005. Comes in now with symptomatic ascites and pleural effusion. Status post tapping of the pleural effusion, feeling better. Today on questioning she is just tired and states that she is feeling better since they tapped the fluid and has no fever, chills or night sweats. No active bleeding. PAST MEDICAL HISTORY Past history mainly remarkable for autoimmune and progressed to cirrhosis, hypersplenism, pancytopenia and now recurrent effusions. Has already been evaluated by the transplant team, and according to the patient, they are actively looking. Otherwise, past history is remarkable for nonischemic cardiomyopathy and history of repeated infections. FAMILY HISTORY Positive for hypertension, diabetes but negative for autoimmune disorders. SOCIAL HISTORY She is not working. Disabled. Lives with mother. She used to smoke. Currently a nonsmoker. Did not pursue that further. CHRONIC MEDICATIONS Lactulose, Protonix, Phenergan, magnesium, Seroquel, Bumex, nadolol and OxyContin and Bumex. Please see the chart if you need further information. REVIEW OF SYSTEMS Mainly tiredness, decreased appetite, shortness of breath on exertion, ill health, periodic mild headaches. Otherwise, 6 or 8 systems were within normal limits. PHYSICAL EXAMINATION GENERAL: She appears very asthenic, in no acute distress. Very pleasant. LYMPHATICS: No palpable nodes. LUNGS: Right lung is clear. Left lung slightly decreased air entry in the base. ABDOMEN: Scaphoid. No palpable liver. Spleen tip is palpable. PELVIC EXAM: Not performed. BREAST EXAM: Not performed. DIAGNOSTIC STUDIES Unit #: [id number] #: [id number] Patient: CARIN HEMPHILL LABORATORY: Chemistry - Glucose 116, BUN 7, creatinine 0.6, sodium 131, potassium 2.9, chloride 99, CO2 27, total bilirubin 3.3, direct bilirubin 1.6, AST 32, ALT 23, alkaline phosphatase 128. Iron 90, TIBC 232, saturation 39. B12 is 1,137, but it is an old result. Hemoglobin 7.2, hematocrit 20.8, white count 3,600, platelets 22,000, neutrophils 74%, lymphocytes 11.3, monocytes 12.5. ASSESSMENT Going back and looking at CBCs from 2005 onward, there is evidence of continuous on and off pancytopenia, most likely related to her autoimmune hepatitis, cirrhosis, hypersplenism. PLAN Will still check baseline B12, folate and iron studies. Replenish if needed. In the meantime her ANC is adequate at white count of 3,600 with 74% granulocytes. Platelets are decreased due to the hypersplenism, and I agree that, if there are invasive procedures, we should bring the platelet count up depending on the procedure. Packed red blood cells as needed to maintain hemoglobin in the 7-8 range. Dictated by... Dave Barnett/otis TD: 12/25/2016 13:21 JOB #: [id number] CONSULTATION REPORT Page 1 of 1 X Duc Drew MD X CONSULTATION REPORT
--- NOTE | ~2016-12-24 | CT4 ---
[facility] A Service of [facility] RADIOLOGY TEXT RESULTS PATIENT: CARIN HEMPHILL LOCATION: [place] [address] : [birth year] UNIT #: [id number] AGE: [address]: Sandhya Azul MD SEX: F ORDER DR: [id number] [facility] [address] [facility]. [place], [place] [address] [id number] MR#: [id number] Acc #: [id number] NAME: CARIN HEMPHILL. : 1985 SEX: F STUDY DATE/TIME: 12/24/2016 8:05 UNIT: KAYE ROOM: STUDY DESCRIPTION: CT Abd and Pelv Wo Cont Attending Physician: Juan Telles Aprn Ordering Physician: Juan Telles Aprn Primary Care Physician: Daniel Dietrich M.D. MEDICAL IMAGING REPORT This report is preliminary unless electronic signature is present EXAM CT abdomen and pelvis INDICATIONS Generalized abdominal pain for 3 hours. Autoimmune hepatitis and cirrhosis. Portal hypertension. TECHNIQUE CT of the abdomen and pelvis with IV contrast. 65 milliliters Isovue-300 IV contrast was utilized. Coronal and sagittal reconstructions were obtained. Please note that there is no IV contrast on this exam. Given the technologist description of 65 mL injected, I suspect this represents IV infiltration. Consider right arm radiograph to confirm an infiltration. IV filtration protocol was initiated Kimberley and CT was notified. She will contact the ER provider. This CT exam was performed with one or more of the following radiation dose reduction techniques: automatic exposure control, adjustment of mA and/or kV according to patient size, and iterative reconstruction. COMPARISON CT abdomen and pelvis dated 03/14/2015 and 12/14/2016. FINDINGS There is a large left pleural effusion. This is unchanged from prior study. There is a small right pleural effusion. The left effusion results in significant atelectasis in the left lower lobe. The liver is small and cirrhotic. There is recannulation of the umbilical vein. The portal vein is dilated. Some peripheral calcification associated with the SMV and portal veins suggests prior portal venous [facility] A Service of [facility] RADIOLOGY TEXT RESULTS PATIENT: CARIN HEMPHILL LOCATION: [facility] [id number] : 87 UNIT #: [id number] AGE: [address]: Sandhya Azul MD SEX: F ORDER DR: thrombus. The patency of the portal venous system is not evaluated without IV contrast. The spleen is enlarged. There is a 2 mm nonobstructing left renal calculus. No hydronephrosis. The bowel is not dilated. There is moderate ascites. The abdominal aorta is normal in caliber. Pelvis: Moderate ascites. Uterus and ovaries are unremarkable. Bladder is unremarkable. No acute osseous abnormalities. IMPRESSION 1. Cirrhosis with portal hypertension. 2. Large left pleural effusion and small right pleural effusion. The left effusion is unchanged. The right effusion is new. 3. Moderate ascites. 4. Please note that 65 mL of contrast was injected into the patient's right arm IV, however, there is no intravascular contrast on this study. This strongly indicates an IV infiltration in the right upper extremity. A right upper extremity radiograph may be useful infiltration. IV infiltration protocol was initiated by the certified hyperbaric technologist. 5. Peripheral calcifications associated with the portal vein and superior mesenteric vein suggests prior portal venous thrombus. This is unchanged from prior study. Dictated by... Joe Hickey M.D. THIS IS AN ELECTRONICALLY VERIFIED REPORT Joe Hickey M.D. at 12/24/2016 3:10 PM Obey TD: 12/24/2016 10:16 JOB #: [id number] MEDICAL IMAGING REPORT Page 1 of 1 COPY
--- NOTE | ~2016-12-24 | A ---
[facility] Nutrition Therapy DATE: 12/25/16 Patient: CARIN HEMPHILL Physician: DANETTE Address: [address] [place] [address] Room/Bed: [address] [place] [address], Zip: [place] [address] Admit Date: 12/24/16 Date of : [birth year] Height: Weight: 145 66 NUTRITIONAL ASSESSMENT: REASON: LOW BMI 31 yo female admitted for encephalopathy PMH: Hepatic encephalopathy, cirrhosis and ESRD 2' autoimmune hepatitis, GI bleed, CHF, pancytopenia Anthropometrics: Ht: 6'2" Wt: 66 kg BMI: 18.7 IBW: 77.3 kg, 85% IBW Labs: Na+ 131 K+ 2.9 Cl- 99 Gluc 116 BUN 7 Ca++ 7.4 Alb 1.7 Mg++ 1.0 NH3+ 101 Amylase 84 Lipase 87 Meds: MgSO4, KCl, phenergan, bumetanide, lactulose, NaCl I/O & Bowel function: 3090/12, last BM 12/25- several BMs noted (receiving lactulose) Skin Integrity: Bruising BUE/ BLE, no edema documented Estimated Nutrition Needs: Increased due to PMH, low BMI Diet: 2 gram Na+ Assessment: Chart reviewed, events noted. 31 yo female admitted for encephalopathy with PMH noted above. RD saw pt during a recent previous admission for low BMI on 11/22/16. At that time, the pt weighed ~68 kg and now weighs 66 kg, indicating ~4# weight loss in one month (3% body weigh loss). RD spoke with the pt at bedside today. Pt was sitting up in bed eating lunch, appearing thin. Pt reports that, despite her increased intake, she continues to lose weight. RD explained the pt's increased protein-calorie needs and discussed ways to increased kcal/ protein intake without having to increase volume of PO intake. Pt does not like Ensure; however, she is agreeable to Magic Cup + one Ensure daily. Pt voiced understanding of the importance of adequate nutritional intake and weight loss prevention, stating "I will do whatever it takes to stop losing weight". RD will order Magic Cup with each meal and One Ensure daily. Dx: Unintentional weight loss RT increased nutrient needs, cirrhosis AEB pt continues to lose weight despite increased PO intake, 3% body weight loss in one month, BMI 18.7, 85% IBW. Intervention: 1. 2 gram Na+ diet + 6 small meals 2. Ensure once daily [facility] Nutrition Therapy DATE: 12/25/16 Patient: CARIN HEMPHILL Physician: DANETTE Address: [address] Room/Bed: [address] [place] [address], Zip: [place] [address] Admit Date: 12/24/16 Date of : [birth year] Height: Weight: 145 66 3. Magic Cup TID Monitoring, Evaluation and Goals: 1. Oral intake; tolerate >75% of meals and supplements 2. Improve labs; Na+, K+, Mg++, NH3+, amylase, lipase 3. GI; promote regular GI function Recommendations: 1. Continue 2 gram Na+ diet, adding 6 small meals to diet order. Pt may also have snacks in between meals. 2. Ensure once daily (no specific flavor) and Magic Cup TID (vanilla) for supplemental nutrition. 3. Encourage increased nutritional intake as needed. 4. Please obtain daily weights for monitoring purposes. Pt is at mild-moderate nutritional risk. RD will follow up per protocol. Respectfully, TIMBO ANDERSON, NESTOR, LD [employer] [facility] cc: client file
--- NOTE | ~2016-12-24 | HP ---
Unit #: [id number] #: [id number] Patient: CARIN HEMPHILL [id number] [address] [place], [place] [address] [id number] I MR#: [id number] NAME: CARIN HEMPHILL ROOM: 61441 Age: 31 Sex: F Admission Date: 12/24/2016 : 1985 Attending Physician: Sandhya Azul M.D. Primary Care Physician: Daniel Dietrich M.D. HISTORY AND PHYSICAL CHIEF COMPLAINT Severe stomach pain. HISTORY OF PRESENT ILLNESS The patient is a 31-year-old female with past medical history of autoimmune hepatitis, ESBL urinary tract infection, C. diff., MRSA, CHF, migraine headaches, who presented to the emergency department for evaluation of the above. The patient states that she has had at least a three day history of abdominal pain. She describes the pain as "everywhere". She states that it is "severe". There are no exacerbating or alleviating factors. She has had one episode of vomiting. She has also had loose stool. She denies any fever. No chest pain. No cough or cold symptoms. In the emergency department, a CT of the abdomen and pelvis was done and showed large left pleural effusion and moderate ascites. Laboratory notable for platelets of 43. Total bilirubin 4.9. Amylase and lipase are 67 and 85 respectively. Ammonia level was 101. She was given morphine, Phenergan, Xifaxan and lactulose in the emergency department. Additionally, she received Rocephin for possible SBP. She is being admitted to [facility] for evaluation and further treatment. PAST MEDICAL HISTORY 1. Admission to [facility], December 02-December 05, 2016, for symptomatic ascites with abdominal pain. Per the discharge summary, she was transferred to [facility] for transplant evaluation (no records). 2. Autoimmune hepatitis with progression to cirrhosis. Autoimmune hepatitis was diagnosed at the age of 14. She does have associated portal hypertension and esophageal varices requiring multiple banding procedures. She also has associated hepatic encephalopathy with current ascites, splenomegaly, coagulopathy and pancytopenia. 3. History of SBP with gram-negative sepsis. 4. MRSA. 5. C. diff. 6. Nonischemic cardiomyopathy. The patient had an echocardiogram, September 13, 2011, that showed an ejection fraction of 45 to 50% with Doppler flow pattern normal for age, borderline global hypokinesis of the left ventricle, moderate tricuspid regurgitation, elevated right ventricular systolic pressure of 30 to 40 mmHg. 7. Migraine headache. PAST SURGICAL HISTORY 1. Bone marrow biopsy. 2. EGD and colonoscopy. Unit #: [id number] #: [id number] Patient: CARIN HEMPHILL 3. Liver biopsy. There is no pathology report from a liver biopsy in [facility], perhaps this was done elsewhere. SOCIAL HISTORY The patient lives with her mother. She states that she quit smoking. FAMILY HISTORY Notable for hypertension, diabetes. ALLERGIES ELOY inhibitors, codeine, aspirin, acetaminophen, spironolactone, ondansetron. HOME MEDICATIONS 1. Phenergan 25 mg q.4 hours p.r.n. 2. Eplerenone 25 mg daily. 3. Protonix 40 mg twice daily. 4. Magnesium 400 mg twice daily. 5. Seroquel 50 mg at bedtime. 6. Bumex 2 mg daily. 7. Midodrine 10 mg t.i.d. 8. OxyContin 20 mg t.i.d. p.r.n. 9. Lactulose 20 g p.o. q.8 hours. 10. Nadolol 40 mg daily. REVIEW OF SYSTEMS A complete review of systems is negative except as indicated in the HPI. The patient states that she has been taking her medications as prescribed. Also, of note, the patient's last paracentesis was attempted on December 03, 2016; however, only 60 mL of very bloody material was removed due to the patient's history of large abdominal wall varices. Prior to that, according to [facility], the patient had a paracentesis on November 24 that had insufficient volume of fluid. Also, of note, the patient was seen yesterday at [facility] emergency department for confusion and was discharged home. PHYSICAL EXAMINATION GENERAL APPEARANCE: The patient is an -Dominican female who is awake and alert, in no acute distress. VITAL SIGNS: Temperature 98.2. Pulse 132. Respirations 16. Blood pressure 133/77. Oxygen saturation 98% on room air. HEENT: The head is atraumatic. Sclerae are icteric. Mucous membranes are moist. NECK: Supple. Trachea is midline. CARDIOVASCULAR: Regular rate and rhythm. LUNGS: Relatively clear to auscultation bilaterally with no increased work of breathing. ABDOMEN: Mildly distended. She is tender to palpation throughout. Bowel sounds are present in all four quadrants. EXTREMITIES: There is no pedal edema. NEUROLOGIC: The patient is awake and alert. She is oriented to year. She thought it was November. She is slow to answer questions. She is moving all extremities. PSYCHIATRIC: The patient is cooperative. Mood and affect are normal. SKIN: Jaundice. DIAGNOSTIC STUDIES LABORATORY: Complete blood count notable for hemoglobin and hematocrit of Unit #: [id number] #: [id number] Patient: CARIN HEPMHILL 9.3 and 26.6 respectively, platelets 43. Ammonia is 101. Comprehensive metabolic panel notable for sodium of 132, glucose 197. Calcium is 7.7 but corrects when albumin of 2 is accounted for. Alkaline phosphatase 136, total bilirubin 4.9 with 1.6 direct, 3.3 indirect. Amylase and lipase are 67 and 85 respectively. Urinalysis notable for 1+ leukocyte esterase, 10 to 25 WBCs. IMAGING: CT of the abdomen and pelvis shows a large left pleural effusion, moderate ascites, possible infiltrate involving the right upper extremity. A right humerus x-ray is pending at the time of this dictation. CARDIOVASCULAR: EKG showed sinus tachycardia with a rate of 106 beats per minute. ASSESSMENT The patient is a 31-year-old female with: 1. Hepatic encephalopathy. 2. The patient received 30 mL of lactulose and 555 mg of Xifaxan in the emergency department. The patient's ammonia level is 101. 3. Ascites. The patient received Rocephin for possible SBP in the emergency department. 4. Bilateral pleural effusions. 5. Cirrhosis secondary to autoimmune hepatitis. 6. History of ESBL urinary tract infection. 7. History of C. diff. 8. History of MRSA. 9. Congestive heart failure with ejection fraction of 45 to 50% noted on echocardiogram from September 13, 2011. 10. Migraine headaches. 11. Former smoker. PLAN 1. Admit for observation to intermediate level. 2. Advance to 2 g sodium diet as tolerated, if passes bedside swallow. 3. Neuro checks. 4. Lactulose 30 mL p.o. q.6 hours. 5. Consult Interventional Radiology for paracentesis and thoracentesis. 6. Transfuse one unit of platelets now so that the patient may have these procedures. 7. Pleural fluid studies including LDH, protein, amylase, triglycerides, glucose, gram stain, culture and sensitivity, cell count and differential cytology. 8. Ascitic fluid studies including cell count and differential, culture and sensitivity, gram stain and cytology. 9. Consult Dr. Lala regarding cirrhosis. 10. Urine culture and sensitivity on urine in the lab. 11. PRN morphine. 12. PRN Zofran. 13. Check magnesium level. 14. Rocephin pending further workup (specifically ascitic fluid studies). 15. Get records from [facility]. 16. Repeat labs in the morning including amylase, lipase, INR. 17. SCDs for DVT prophylaxis. 18. Additional workup and consultants based on above. 1. Dictated by Sandhya Azul M.D. Unit #: [id number] #: [id number] Patient: CARIN HEMPHILL FREDY/tabitha TD: 12/24/2016 12:38 JOB #: [id number] HISTORY AND PHYSICAL Page 1 of 1 X Sandhya Azul MD X HISTORY AND PHYSICAL
--- NOTE | ~2016-12-24 | XA203 ---
[facility] A Service of [facility] RADIOLOGY TEXT RESULTS PATIENT: CARIN HEMPHILL LOCATION: [place] [address] : 87 UNIT #: [id number] AGE: [address]: Sandhya Azul MD SEX: F ORDER DR: [id number] [place] [address] [facility]. [place], [place] [address] [id number] I MR#: [id number] Acc #: [id number] NAME: CARIN HEMPHILL. : 1985 SEX: F STUDY DATE/TIME: 12/24/2016 13:42 UNIT: [facility] ROOM: [facility] STUDY DESCRIPTION: XA Thoracentesis Attending Physician: Sandhya Azul M.D. Ordering Physician: Juan Telles Aprn Primary Care Physician: Daniel Dietrich M.D. MEDICAL IMAGING REPORT This report is preliminary unless electronic signature is present EXAM Ultrasound-guided left thoracentesis. INDICATIONS Left pleural effusion. Risks, benefits and alternatives of the procedure was discussed with the patient and informed consent was obtained. In the procedure room a time-out was performed confirming correct patient and procedure. All elements maximum sterile-barrier technique utilized according to guidelines appropriate for the procedure. TECHNIQUE/FINDINGS Ultrasound of the left posterior hemithorax was performed demonstrating a large left pleural effusion. The overlying skin was prepped and draped in usual sterile fashion. 1% lidocaine utilized to anesthetize the skin and underlying subcutaneous tissues. Next under ultrasound guidance, a 5-Sinhala Yueh catheter was inserted into the pleural space on the left in 2300 mL of tea-colored fluid was removed. A sample was sent to the lab. The needle was removed and a sterile dressing was applied. There are no immediate complications. IMPRESSION Technically successful ultrasound guided left thoracentesis. Dictated by... Gatito Gallegos M.D. THIS IS AN ELECTRONICALLY VERIFIED REPORT Gatito Gallegos M.D. at 12/27/2016 7:26 AM ARS/jt [facility] A Service of [facility] RADIOLOGY TEXT RESULTS PATIENT: CARIN HEMPHILL LOCATION: [facility] 557- : 87 UNIT #: [id number] AGE: [address]: Sandhya Azul MD SEX: F ORDER DR: TD: 12/24/2016 22:47 JOB #: [id number] MEDICAL IMAGING REPORT Page 1 of 1 COPY
--- NOTE | ~2016-12-24 | CR71 ---
[facility] A Service of [facility] RADIOLOGY TEXT RESULTS PATIENT: CARIN HEMPHILL LOCATION: [place] [address] : 87 UNIT #: [id number] AGE: [address]: Sandhya Azul MD SEX: F ORDER DR: [id number] [facility] [address] [facility]. [place], [place] [address] [id number] I MR#: [id number] Acc #: [id number] NAME: CARIN HEMPHILL : 1985 SEX: F STUDY DATE/TIME: 12/24/2016 14:35 UNIT: [facility] ROOM: [facility] STUDY DESCRIPTION: CR Chest Single View Attending Physician: Sandhya Azul M.D. Primary Care Physician: Daniel Dietrich M.D. MEDICAL IMAGING REPORT This report is preliminary unless electronic signature is present EXAM Portable chest INDICATIONS 31-year-old female with history of left pleural effusion, status post thoracentesis. COMPARISON 10/30/2016 FINDINGS Status post left thoracentesis without evidence of pneumothorax. There is a trace amount of residual pleural fluid on the left. No acute infiltrate. Heart size is normal. IMPRESSION No pneumothorax following thoracentesis. Trace amount of residual pleural fluid on the left. Dictated by... Gatito Gallegos M.D. THIS IS AN ELECTRONICALLY VERIFIED REPORT Gatito Gallegos M.D. at 12/27/2016 7:25 AM ZAIRA/jhonny TD: 12/24/2016 17:08 JOB #: [id number] MEDICAL IMAGING REPORT Page 1 of 1 COPY
[2016-12-24 04:33] LABS: BASOPHIL# 0.1 X10e3 (0-0.3); BASOPHIL% 0.6 % (0-2.5); EOSINOPHIL# 0.1 X10e3 (0-0.7); EOSINOPHIL% 1.3 % (0.0-7.0); HEMATOCRIT 26.6 % (35.0-45.0); HEMOGLOBIN 9.3 gm/dL (12.0-16.0); LYMPHOCYTE# 1.1 X10e3 (1.0-3.5); LYMPHOCYTE% 11.3 % (17.0-45.0); MEAN CELL VOLUME 93.1 FL (83-96); MEAN CORPUSCULAR HEMOGLOBIN 32.4 PG (28-34); MEAN CORPUSCULAR HGB CONC 34.7 g/dL (30-36); MEAN PLATELET VOLUME 10.4 FL (6.5-11.5); MONOCYTE# 1.3 X10e3 (0-1.0); MONOCYTE% 12.5 % (3.0-12.0); NEUTROPHIL# 7.5 X10e3 (1.5-7.1); NEUTROPHIL% 74.3 % (40-75); RED BLOOD COUNT 2.86 X10e (3.90-5.30); RED CELL DISTRIBUTION WIDTH 18.4 % (11.0-15.5); WHITE BLOOD COUNT 10.1 X10e3 (4.0-10.5)
[2016-12-24 04:50] LABS: DIFF IND YES; PLATELET COUNT 43 X10e3 (140-420)
[2016-12-24 04:55] LABS: PLATELET ESTIMATE DECREASED (NORMAL)
[2016-12-24 04:56] LABS: ACANTHOCYTES PRESENT; ANISOCYTOSIS MOD; POIKILOCYTOSIS SL; SCHISTOCYTES PRESENT
[2016-12-24 05:36] LABS: BILIRUBIN, DIRECT 1.6 mg/dL (0.0-0.2); BILIRUBIN,INDIRECT 3.3 mg/dL (0.0-0.9); BILIRUBIN,TOTAL 4.9 mg/dL (0.2-2.0); CALCIUM SERUM 7.7 mg/dL (8.4-10.2); CREATININE SERUM 0.6 mg/dL (0.6-1.4); GLOM FILT RATE Estimated 142.8 mL/min (>60); POTASSIUM 3.5 mmol/L (3.5-5.1); PROTEIN TOTAL SERUM 5.9 g/dL (6.0-8.3)
[2016-12-24 06:16] LABS: URINE APPEARANCE CLEAR; URINE BLOOD TRACE (NEG); URINE COLOR DK YELLOW; URINE GLUCOSE NEG (NEG); URINE KETONE NEG (NEG); URINE LEUKOCYTE ESTERASE 1+ (NEG); URINE NITRATE NEG (NEG); URINE PROTEIN NEG (NEG); URINE SPECIFIC GRAVITY 1.016 (1.003-1.035); URINE UROBILINOGEN 0.2 MG/DL (NEG)
[2016-12-24 06:19] LABS: CULTURE INDICATED? YES; URBCS1 AUWI 0-2 /[HPF] (0-2); URINE BACTERIA AUWI NEG (NEGATIVE); URINE SQUAMOUS EPITHELIAL CELL FEW /[HPF]
[2016-12-24 06:30] LABS: URINE BILIRUBIN POS (NEG)
[2016-12-24 06:32] LABS: URINE CRYSTALS CALCIUM OXALATE /[HPF]
[2016-12-24] MEDS ORDERED: PATIENT'S PHARMACY (10:11)
[2016-12-24] MEDS ORDERED: HYDROXYZINE HCL25 M1 PO (10:12)
[2016-12-24] MEDS ORDERED: OXYCONTIN PO ×2 (10:13→10:29)
[2016-12-24] MEDS ORDERED: KCL PO (10:14)
[2016-12-24] MEDS ORDERED: XIFAXAN550 MG PO (10:14)
[2016-12-24] MEDS ORDERED: PHENERGAN25 M1 PO (10:27)
[2016-12-24] MEDS ORDERED: EPLERENONE25 MG PO (10:28)
[2016-12-24] MEDS ORDERED: MAGOX 400400 MG PO (10:28)
[2016-12-24] MEDS ORDERED: PROTONIX PO (10:28)
[2016-12-24] MEDS ORDERED: EPLERENONE50 MG PO (10:28)
[2016-12-24] MEDS ORDERED: BUMEX2 MG PO (10:29)
[2016-12-24] MEDS ORDERED: CORGARD PO (10:29)
[2016-12-24] MEDS ORDERED: SEROQUEL PO (10:29)
[2016-12-24] MEDS ORDERED: KRISTALOSE20 GM PO (10:29)
[2016-12-24] MEDS ORDERED: PROAMATINE10 MG PO (10:29)
[2016-12-24 13:20] LABS: INR 2.3; PROTHROMBIN TIME (PATIENT) 24.8 SECONDS (10.0-11.7)
[2016-12-24 13:21] LABS: PARTIAL THROMBOPLASTIN TIME 61.2 SECONDS (23.5-31.3)
[2016-12-24 16:17] LABS: BF TOTAL NUCLEATED CELL COUNT 125 CMM (0-100); BODY FLUID APPEARANCE HAZY; BODY FLUID RBC <10000 CMM; BODY FLUID SOURCE THORACENTESIS
[2016-12-24 16:51] LABS: PROTEIN, BODY FLUID 0.9 gm/dL
[2016-12-25 05:47] LABS: HEMATOCRIT 20.8 % (35.0-45.0); MEAN CELL VOLUME 92.2 FL (83-96); MEAN CORPUSCULAR HEMOGLOBIN 31.9 PG (28-34); MEAN CORPUSCULAR HGB CONC 34.6 g/dL (30-36); MEAN PLATELET VOLUME 10.6 FL (6.5-11.5); RED BLOOD COUNT 2.26 X10e (3.90-5.30)
[2016-12-25 05:48] LABS: WHITE BLOOD COUNT 3.6 X10e3 (4.0-10.5)
[2016-12-25 05:49] LABS: HEMOGLOBIN 7.2 gm/dL (12.0-16.0)
[2016-12-25 06:08] LABS: INR 2.2; PROTHROMBIN TIME (PATIENT) 23.9 SECONDS (10.0-11.7)
[2016-12-25 07:48] LABS: ALBUMIN SERUM 1.7 g/dL (3.5-5.0); BILIRUBIN,TOTAL 3.3 mg/dL (0.2-2.0); BUN/CREATININE RATIO 11.66; CALCIUM SERUM 7.4 mg/dL (8.4-10.2); CREATININE SERUM 0.6 mg/dL (0.6-1.4); GLOM FILT RATE Estimated 142.8 mL/min (>60); PROTEIN TOTAL SERUM 4.8 g/dL (6.0-8.3)
[2016-12-25 08:02] LABS: POTASSIUM 2.9 mmol/L (3.5-5.1)
[2016-12-26 05:42] LABS: BASOPHIL% 0.4 % (0-2.5); EOSINOPHIL# 0.1 X10e3 (0-0.7); HEMATOCRIT 22.3 % (35.0-45.0); HEMOGLOBIN 7.7 gm/dL (12.0-16.0); LYMPHOCYTE# 0.7 X10e3 (1.0-3.5); LYMPHOCYTE% 17.2 % (17.0-45.0); MEAN CORPUSCULAR HEMOGLOBIN 31.9 PG (28-34); MEAN CORPUSCULAR HGB CONC 34.6 g/dL (30-36); MEAN PLATELET VOLUME 9.8 FL (6.5-11.5); MONOCYTE# 0.4 X10e3 (0-1.0); MONOCYTE% 11.3 % (3.0-12.0); NEUTROPHIL# 2.7 X10e3 (1.5-7.1); NEUTROPHIL% 68.1 % (40-75); RED BLOOD COUNT 2.43 X10e (3.90-5.30); RED CELL DISTRIBUTION WIDTH 18.3 % (11.0-15.5)
[2016-12-26 05:44] LABS: PLATELET COUNT 20 X10e3 (140-420)
[2016-12-26 05:45] LABS: DIFF IND NO
[2016-12-26 06:17] LABS: CALCIUM SERUM 7.9 mg/dL (8.4-10.2); CREATININE SERUM 0.5 mg/dL (0.6-1.4); GLOM FILT RATE Estimated 151.6 mL/min (>60); MAGNESIUM 1.4 mg/dL (1.6-3.0)
[2016-12-27 07:18] LABS: HEMATOCRIT 21.7 % (35.0-45.0); HEMOGLOBIN 7.5 gm/dL (12.0-16.0); MEAN CELL VOLUME 93.5 FL (83-96); MEAN CORPUSCULAR HEMOGLOBIN 32.3 PG (28-34); MEAN CORPUSCULAR HGB CONC 34.6 g/dL (30-36); MEAN PLATELET VOLUME 9.8 FL (6.5-11.5); RED BLOOD COUNT 2.32 X10e (3.90-5.30); RED CELL DISTRIBUTION WIDTH 18.5 % (11.0-15.5); WHITE BLOOD COUNT 3.2 X10e3 (4.0-10.5)
[2016-12-27 07:54] LABS: ALBUMIN SERUM 1.8 g/dL (3.5-5.0); BILIRUBIN,TOTAL 3.2 mg/dL (0.2-2.0); CALCIUM SERUM 7.7 mg/dL (8.4-10.2); CREATININE SERUM 0.5 mg/dL (0.6-1.4); GLOM FILT RATE Estimated 151.6 mL/min (>60); POTASSIUM 3.3 mmol/L (3.5-5.1); PROTEIN TOTAL SERUM 5.2 g/dL (6.0-8.3)
== END 2016-12-27 20:00 | disposition home or self-care (01) | DRG 442 ==
LOC: CED 03:09 → C5B 11:45 → CEDOF 11:45 → CED 11:45 → CEDOF 12:15 → CED 12:15 → C5B 14:48 → CEDOF 14:48 → C5B 12-27 09:33
PROVIDERS: Family Medicine; Internal Medicine; Nurse Practitioner Family
PROC: 6A550Z2 Pheresis of Platelets, Single (ICD-10-PCS; principal; 2016-12-24)
PROC: 0W9B3ZX Drainage of Left Pleural Cavity, Percutaneous Approach, Diagnostic (ICD-10-PCS; 2016-12-24)
PROC: 05H433Z Insertion of Infusion Device into Left Innominate Vein, Percutaneous Approach (ICD-10-PCS; 2016-12-25)
DX: K75.4 Autoimmune hepatitis (principal); R18.8 Other ascites; J90 Pleural effusion, not elsewhere classified; D61.818 Other pancytopenia; K72.90 Hepatic failure, unspecified without coma; I42.8 Other cardiomyopathies; I11.0 Hypertensive heart disease with heart failure; I50.22 Chronic systolic (congestive) heart failure; K74.60 Unspecified cirrhosis of liver; G43.909 Migraine, unspecified, not intractable, without status migrainosus; Z81.2 Family history of tobacco abuse and dependence; Z83.3 Family history of diabetes mellitus; Z82.49 Family history of ischemic heart disease and other diseases of the circulatory system; Z88.4 Allergy status to anesthetic agent; Z88.8 Allergy status to other drugs, medicaments and biological substances; G89.29 Other chronic pain
CPT/HCPCS: 36415; 71010; 73060; 74176; 80048; 80053; 80076; 81003; 82140; 82150; 82607; 82728; 82746; 82945; 83540; 83550; 83615; 83690; 83735; 84132; 84157; 84478; 84703; 85025; 85027; 85610; 85730; 86850; 86870; 86900; 86901; 86922; 87040; 87070; 87086; 87205; 88108; 88305; 89051; 93005; 96361; 96374; 96375; 99285; J0696; J2270; J2550; J3475; P9035

== ENCOUNTER 2016-12-28 19:17 | Inpatient (IN) | payer OTHER ==
[~2016-12-28] VITALS: Ht 188 cm; Wt 71.2 kg
--- NOTE | ~2016-12-28 | DS ---
Unit #: [id number] #: [id number] Patient: CARIN HEMPHILL [id number] [address] [address] [id number] I MR#: [id number] NAME: CARIN HEMPHILL. ROOM: 332 Age: 31 Sex: F Admission Date: 12/29/2016 : 1985 Discharge Date: 01/01/2017 Attending Physician: Chadwick Alberts M.D. Primary Care Physician: Daniel Dietrich M.D. DISCHARGE SUMMARY DISCHARGE DIAGNOSES 1. Autoimmune hepatitis with cirrhosis. 2. Pleural effusion. 3. Ascites. 4. Thrombocytopenia. 5. Hepatic encephalopathy. 6. Chronic pain with narcotic dependence. HOSPITAL COURSE The patient is a 31-year-old female with autoimmune hepatitis and cirrhosis, who presents to [facility] Emergency Department secondary to pain. She states that she was unable to get her pain medications filled after her discharge just two days prior to this admission. As a result, she represented secondary to her pain. The patient was noted to have significant pleural effusion and ascites. These are certainly a result of her ascites and nonadherence to both her medication regimen and her diet. Attempts were made for paracentesis and thoracentesis; however, it was felt that the patient's platelets were too low. Instead at this time, the patient's Bumex will be increased in an attempt to increase her urine output and reduce the volumes. However given that the patient underwent ultrasound-guided thoracentesis on December 24 and had near complete return of the fluid by December 29, there is likely little to be gained from reperforming the procedure. Most likely will need to be managed pharmacologically. Given the patient's representation secondary to pain, a new prescription was provided for Vicoprofen. DISCHARGE MEDICATIONS 1. Bumex 2 mg twice a day for five days, then daily. 2. Xifaxan 550 mg p.o. b.i.d. 3. Lactulose 20 g p.o. q.6 hours. 4. Vicoprofen 10/200 one p.o. q.6 hours p.r.n. mild/moderate pain. 5. Eplerenone 50 mg p.o. daily. 6. Zinc sulfate 220 mg p.o. daily. 7. Potassium chloride 20 mEq p.o. b.i.d. 8. Hydroxyzine 25 mg p.o. daily as needed. 9. Os-Nehemiah 500 mg p.o. b.i.d. 10. Calcitriol 0.25 mg p.o. daily. 11. Vitamin B complex/folic acid daily. 12. Seroquel 50 mg p.o. nightly. 13. Midodrine 10 mg p.o. t.i.d. 14. Nadolol 40 mg p.o. daily. Unit #: [id number] #: [id number] Patient: CARIN HEMPHILL FOLLOWUP Patient states she has a followup appointment with her primary care provider in one week. Dictated by... Chadwick Alberts M.D. AWILDA/paolo TD: 01/02/2017 08:28 JOB #: [id number] DISCHARGE SUMMARY Page 1 of 1 X Chadwick Alberts MD X DISCHARGE SUMMARY
--- NOTE | ~2016-12-28 | CR63 ---
[facility] A Service of [facility] RADIOLOGY TEXT RESULTS PATIENT: CARIN HEMPHILL LOCATION: [facility] 332-01 : 87 UNIT #: [id number] AGE: [address]: Chadwick Alberts MD SEX: F ORDER DR: [id number] [facility] [address] [place], [place] [address] [id number] I MR#: [id number] Acc #: [id number] NAME: CARIN HEMPHILL : 1985 SEX: F STUDY DATE/TIME: 12/29/2016 10:50 UNIT: [facility] PCU ROOM: [facility] STUDY DESCRIPTION: CR Chest 2 View Attending Physician: Chadwick Alberts M.D. Ordering Physician: Omari Mckinney Primary Care Physician: Daniel Dietrich M.D. MEDICAL IMAGING REPORT This report is preliminary unless electronic signature is present EXAM Chest 12/29/2016 HISTORY Short of air. Patient for VQ scan for correlation. High blood pressure. COMPARISON Acute abdomen series 12/28/2016. Single view chest 12/24/2016 FINDINGS Two-view chest demonstrates a large volume left pleural effusion present. There is also a significant interval increase in heart size with the configuration of a pericardial effusion. Probable small right pleural effusion. Atelectasis left mid lung. Large body habitus with increased opacities suggesting a large volume ascites as well. IMPRESSION 1. Large volume left pleural effusion with a likely small right pleural effusion. Interim development of a pericardial effusion suspect. Large volume ascites. Dictated by... Jason Paul M.D. THIS IS AN ELECTRONICALLY VERIFIED REPORT Jason Paul M.D. at 12/29/2016 3:25 PM JERE/rj TD: 12/29/2016 14:23 JOB #: [id number] [facility] A Service of [facility] RADIOLOGY TEXT RESULTS PATIENT: CARIN HEMPHILL LOCATION: [facility] 332-01 : 87 UNIT #: [id number] AGE: [address]: Chadwick Alberts MD SEX: F ORDER DR: MEDICAL IMAGING REPORT Page 1 of 1 COPY
--- NOTE | ~2016-12-28 | HP ---
Unit #: [id number] #: [id number] Patient: CARIN HEMPHILL [id number] [address] [place], [place] [address] [id number] I MR#: [id number] NAME: CARIN HEMPHILL. ROOM: 332 Age: 31 Sex: F Admission Date: 12/29/2016 : 1985 Attending Physician: Sherin Mckinney M.D. Primary Care Physician: Daniel Dietrich M.D. HISTORY AND PHYSICAL CHIEF COMPLAINT Increasing abdominal pain, pleuritic left chest pain. HISTORY This 31-year-old female with autoimmune hepatitis progressing to cirrhosis with portal hypertension, is admitted for increasing chest and abdominal pain. The patient was last admitted to this facility 12/24/2016 for increasing abdominal pain. She had pleural effusions noted on her chest x-ray and underwent a successful thoracentesis. Due to abdominal varices, it has been difficult to perform a paracentesis. She was discharged home a day or two ago. However, when arriving home she developed increasing left pleuritic chest pain along with acute on chronic generalized abdominal pain, and nausea. She came back to this facility last evening where she was given a small dose of Benadryl and Phenergan. On examination, she has significant ascites with abdominal tenderness. Chest x-ray with acute abdominal series shows a large amount of food debris in the stomach. Atelectasis versus infiltrate at the left lower base. However, patient denies a cough associated with the above. She currently is afebrile with a normal white count. PAST MEDICAL HISTORY 1. Autoimmune hepatitis since age 14. This has progressed to cirrhosis with portal hypertension and esophageal varices requiring multiple endoscopies with banding. The patient has associated hepatic encephalopathy, recurrent ascites, splenomegaly, coagulopathy and pancytopenia. 2. Splenomegaly associated with pancytopenia. 3. Admissions in the past for spontaneous bacterial peritonitis with Gram-negative sepsis. 4. Admission in November for ESBL bacteremia. 5. History of MRSA. 6. History of C. difficile colitis. 7. Beta hemolytic strep sepsis in 2013. 8. History of liver mass, status post liver biopsy. 9. Nonischemic cardiomyopathy, previous ejection fraction 45% to 50%. 10. Migraine headaches. 11. History of hyperkalemia due to Aldactone in the past. 12. Bone marrow biopsy. 13. Colonoscopy. Hemorrhoids were seen. ALLERGIES Intolerant to Tylenol, codeine, ELOY inhibitors, aspirin, spironolactone, Unit #: [id number] #: [id number] Patient: CARIN HEMPHILL and Ct. Also intolerant to morphine. HOME MEDICATIONS 1. Multivitamin with folic acid daily. 2. Bumex 2 mg b.i.d. 3. Rocaltrol 0.25 mcg daily. 4. Os-Nehemiah 250 mg b.i.d. 5. Inspra 50 mg daily. 6. Atarax 25 mg t.i.d. p.r.n. 7. Lactulose 30 mL t.i.d. 8. Magnesium oxide 400 mg b.i.d. 9. ProAmatine 4 mg t.i.d. 10. Nadalol 20 mg b.i.d. 11. Protonix 40 mg b.i.d. 12. Potassium 20 mEq, four tablets b.i.d. 13. Phenergan 25 mg q.6 hours as needed. 14. Seroquel 50 mg q. h.s. 15. Xifaxan 550 mg b.i.d. 16. Zinc 220 mg daily. 17. Oxycodone 20 mg t.i.d. FAMILY HISTORY Hypertension, diabetes mellitus, prostate cancer. SOCIAL HISTORY The patient lives with her mother. No longer smokes, does not drink alcohol, does not use illicit drugs. REVIEW OF SYSTEMS Notable for nausea, increasing abdominal pain, pleuritic left chest pain, cirrhosis, autoimmune hepatitis, pancytopenia, multi-microbial infections as dictated above, SBP, C. diff, liver mass, nonischemic cardiomyopathy, migraines. All other systems were reviewed and are otherwise negative. PHYSICAL EXAMINATION GENERAL APPEARANCE: Chronically ill-appearing 31-year-old female who looks to be uncomfortable. VITAL SIGNS: Temperature 98.5, pulse 97, respirations 21, blood pressure 117/80. O2 saturation is 98% on room air. HEENT: Eyes PERRLA. Extraocular muscles are intact. Pharynx is benign. NECK: Supple without adenopathy or thyromegaly. CHEST: Diminished breath sounds. CARDIAC: Normal S1 and S2 without definite murmur. ABDOMEN: Bowel sounds are present. The patient has a distended abdomen with generalized abdominal tenderness, somewhat distended but no rebound or guarding. EXTREMITIES: Without C, C or E. Pedal pulses are present. NEUROLOGIC EXAM: The patient is awake, alert, oriented. Cranial nerves are intact. Equal strength throughout. DIAGNOSTIC STUDIES LABORATORY: Hematocrit is 29.2 which is improved. Normal white count. Platelet count is 51, also improved. SMA-12 - glucose 150, sodium 130, potassium 2.9, calcium is 8.1, albumin is 2.3, bilirubin of 6.3 which has increased from yesterday, mostly indirect however. Alkaline phos. is 226. Amylase 94, lipase is 90. Unit #: [id number] #: [id number] Patient: CARIN HEMPHILL Urinalysis - 2+ blood, 5-10 white cells but no bacteria. IMAGING: Chest x-ray - atelectasis versus infiltrate at the left base. Acute abdominal series - large amount of food debris in the stomach. ASSESSMENT 1. Pleuritic left chest pain: The patient had recent thoracentesis. 2. Autoimmune hepatitis with cirrhosis and associated portal hypertension with recurrent ascites. 3. Splenomegaly with pancytopenia. 4. Increasing abdominal pain, acute on chronic. 5. History of ESBL, MRSA, C. diff. 6. Hypokalemia. 7. Nonischemic cardiomyopathy, ejection fraction is 45% to 50%. PLANS 1. Replace potassium, check magnesium. 2. One dose of antibiotics and ask Dr. Lala to see in the morning. We have had difficulty obtaining a paracentesis on this patient due to abdominal varices. 3. Check V/Q scan and venous Dopplers of the legs. Dictated by Dave Sorensen/df TD: 12/29/2016 05:50 JOB #: [id number] HISTORY AND PHYSICAL Page 1 of 1 X Sherin Mckinney MD HISTORY AND PHYSICAL
--- NOTE | ~2016-12-28 | NM69 ---
[facility] A Service of [facility] RADIOLOGY TEXT RESULTS PATIENT: CARIN HEMPHILL LOCATION: [facility] 332-01 : 87 UNIT #: [id number] AGE: [address]: Chadwick Alberts MD SEX: F ORDER DR: [id number] [facility] [address] [place], [place] [address] [id number] I MR#: [id number] Acc #: [id number] NAME: CARIN HEMPHILL. : 1985 SEX: F STUDY DATE/TIME: 12/29/2016 8:55 UNIT: A [facility] ROOM: [facility] STUDY DESCRIPTION: NM Pulm Vent and Perf Attending Physician: Chadwick Alberts M.D. Ordering Physician: Sherin Mckinney M.D. Primary Care Physician: Daniel Dietrich M.D. MEDICAL IMAGING REPORT This report is preliminary unless electronic signature is present EXAM VQ lung scan, 12/29/2016. HISTORY 31-year-old female; chest pain and shortness of breath. Status post thoracentesis for left pleural effusion on 12/24/2016. Patient states chest pain began 2 days ago. COMPARISON PA and lateral chest radiograph, 12/29/2016. PROCEDURE Following the inhalation of 34.2 mCi technetium-99m DTPA in aerosol form for ventilation imaging purposes, and the intravenous administration of 5.67 mCi technetium-99m MAA for perfusion imaging purposes, multiple projections were obtained of the chest compared to today's chest radiograph. FINDINGS Large matched defect is seen within the left upper lobe. It has no definite chest x-ray correlate. Tiny nonsegmental matched defects are demonstrated within the right upper lobe anteriorly. Ventilation defect is demonstrated in the left lower lobe without abnormal perfusion correlate. IMPRESSION This is an indeterminate study for pulmonary embolism. There is a large matched defect within the left upper lobe on both ventilation and perfusion imaging without definite chest x-ray correlate. Dedicated CTA chest with contrast, pulmonary embolism protocol, would be recommend for further evaluation, particularly if the patient is IV contrast candidate. [facility] A Service of [facility] RADIOLOGY TEXT RESULTS PATIENT: CARIN HEMPHILL LOCATION: [facility] 332-01 : 87 UNIT #: [id number] AGE: [address]: Chadwick Alberts MD SEX: F ORDER DR: Dictated by... Le Arechiga M.D. THIS IS AN ELECTRONICALLY VERIFIED REPORT Le Arechiga M.D. at 12/31/2016 9:34 PM NGOC/jhonny TD: 12/29/2016 16:02 JOB #: [id number] MEDICAL IMAGING REPORT Page 1 of 1 COPY
--- NOTE | ~2016-12-28 | CR2 ---
[facility] A Service of [facility] RADIOLOGY TEXT RESULTS PATIENT: CARIN HEMPHILL LOCATION: [facility] 332-01 : 87 UNIT #: [id number] AGE: [address]: Chadwick Alberts MD SEX: F ORDER DR: [id number] [facility] [address]. [place], [place] [address] [id number] I MR#: [id number] Acc #: [id number] NAME: CARIN HEMPHILL. : 1985 SEX: F STUDY DATE/TIME: 12/28/2016 21:07 UNIT: [address] ROOM: [facility] STUDY DESCRIPTION: CR Abdomen Acute Series Attending Physician: Chadwick Alberts M.D. Ordering Physician: Sherin Mckinney M.D. Primary Care Physician: Daniel Dietrich M.D. MEDICAL IMAGING REPORT This report is preliminary unless electronic signature is present EXAM Acute abdomen series 4 views 12/28/2016 HISTORY Chest pain, abdominal pain, shortness of breath and diarrhea beginning today. Benign essential hypertension FINDINGS Four views of the chest and abdomen demonstrate nonspecific bowel gas pattern with no evidence of bowel obstruction or free air. There is a large amount of food debris in the stomach. There is poor inspiratory result with infiltrate or atelectasis in the left lower lobe and discoid atelectasis at the right base with small bilateral pleural effusions left greater than right. IMPRESSION 1. Nonspecific bowel gas pattern. No evidence of bowel obstruction or free air. Large amount of food debris in the stomach. 2. Poor inspiratory result with infiltrate or atelectasis left lower lobe and discoid atelectasis right base with bilateral pleural effusions left greater than right. Dictated by... Junior Calix M.D. THIS IS AN ELECTRONICALLY VERIFIED REPORT Junior Calix M.D. at 12/29/2016 2:19 PM ROSLYN/arturo TD: 12/29/2016 08:40 JOB #: [id number] [facility] A Service of [facility] RADIOLOGY TEXT RESULTS PATIENT: CARIN HEMPHILL LOCATION: [facility] 332-01 : 87 UNIT #: [id number] AGE: [address]: Chadwick Alberts MD SEX: F ORDER DR: MEDICAL IMAGING REPORT Page 1 of 1 COPY
--- NOTE | ~2016-12-28 | US84 ---
[id number] [facility] [address] [place], [place] [address] [id number] I MR#: [id number] Acc #: [id number] NAME: CARIN HEMPHILL : 1985 SEX: F STUDY DATE/TIME: 12/29/2016 9:36 UNIT: C3A PCU ROOM: 332 STUDY DESCRIPTION: US LE Veins Complete Mario Stdy Attending Physician: Chadwick Alberts M.D. Ordering Physician: Sherin Mckinney M.D. Primary Care Physician: Daniel Dietrich M.D. MEDICAL IMAGING REPORT This report is preliminary unless electronic signature is present EXAM Bilateral lower extremity venous ultrasound 12/29/2016 HISTORY Short of air since yesterday. No history DVT. FINDINGS Real-time ultrasonography of the bilateral lower extremity venous structures performed. Rosen-scale, color Doppler and Doppler pulse-wave interrogation utilized. The bilateral common femoral veins, femoral veins, profunda femoris veins, popliteal veins, anterior tibial, posterior tibial and peroneal veins show normal compressibility and normal color Doppler interrogation demonstrating aesu-yo-cchd flow. There is no evidence of lower extremity deep venous thrombosis. The bilateral great saphenous veins are patent with no evidence of superficial venous thrombosis. In the left groin region there is a fluid collection measuring approximately 1.28 cm x 1.85 cm x 1.[address] examination dated 12/14/2016 shows patient with cirrhosis and ascites. This fluid was also seen on prior CT examination and is felt to be extension of ascitic fluid into small left femoral or inguinal hernia. IMPRESSION 1. Bilateral lower extremity venous ultrasound shows no evidence of deep or superficial venous thrombosis at the time of this examination. 2. Small fluid collection in the left groin measuring up to 1.85 cm in maximum diameter. Corresponding finding on CT examination 12/14/2016. This is felt to be ascitic fluid extending into femoral or inguinal hernia. Dictated by... Melvin Hendrix M.D. THIS IS AN ELECTRONICALLY VERIFIED REPORT Melvin Hendrix M.D. at 12/29/2016 6:04 PM Evan TD: 12/29/2016 16:57 JOB #: [id number] MEDICAL IMAGING REPORT Page 1 of 1 COPY
[~2016-12-28 19:17] MED LIST changes: +EPLERENONE25 MG PO; +EPLERENONE50 MG PO; +HYDROXYZINE HCL25 M1 PO; +KCL PO; +KRISTALOSE20 GM PO; +PATIENT'S PHARMACY; +PHENERGAN25 M1 PO; +SEROQUEL PO
[2016-12-28 20:58] LABS: URINE SOURCE CLEAN CATCH
[2016-12-28 21:05] LABS: URINE APPEARANCE CLEAR; URINE BLOOD 2+ (NEG); URINE COLOR DK YELLOW; URINE GLUCOSE NEG (NEG); URINE KETONE NEG (NEG); URINE LEUKOCYTE ESTERASE TRACE (NEG); URINE NITRATE NEG (NEG); URINE PROTEIN NEG (NEG); URINE SPECIFIC GRAVITY 1.015 (1.003-1.035); URINE UROBILINOGEN 0.2 MG/DL (NEG)
[2016-12-28 21:08] LABS: CULTURE INDICATED? YES; URINE BACTERIA AUWI NEG (NEGATIVE); URINE SQUAMOUS EPITHELIAL CELL OCC /[HPF]
[2016-12-28 21:10] LABS: BASOPHIL% 0.3 % (0-2.5); EOSINOPHIL# 0.1 X10e3 (0-0.7); EOSINOPHIL% 1.6 % (0.0-7.0); HEMATOCRIT 29.2 % (35.0-45.0); LYMPHOCYTE# 0.6 X10e3 (1.0-3.5); LYMPHOCYTE% 8.3 % (17.0-45.0); MEAN CELL VOLUME 92.8 FL (83-96); MEAN CORPUSCULAR HEMOGLOBIN 32.6 PG (28-34); MEAN CORPUSCULAR HGB CONC 35.2 g/dL (30-36); MEAN PLATELET VOLUME 10.5 FL (6.5-11.5); MONOCYTE# 0.6 X10e3 (0-1.0); MONOCYTE% 7.8 % (3.0-12.0); NEUTROPHIL# 6.2 X10e3 (1.5-7.1); RED BLOOD COUNT 3.14 X10e (3.90-5.30); RED CELL DISTRIBUTION WIDTH 18.5 % (11.0-15.5)
[2016-12-28 21:11] LABS: WHITE BLOOD COUNT 7.5 X10e3 (4.0-10.5)
[2016-12-28 21:12] LABS: HEMOGLOBIN 10.3 gm/dL (12.0-16.0); PLATELET COUNT 51 X10e3 (140-420)
[2016-12-28 21:13] LABS: DIFF IND NO
[2016-12-28 21:16] LABS: URINE BILIRUBIN NEG (NEG)
[2016-12-28 21:34] LABS: ALBUMIN SERUM 2.3 g/dL (3.5-5.0); BILIRUBIN, DIRECT 1.7 mg/dL (0.0-0.2); BILIRUBIN,INDIRECT 4.6 mg/dL (0.0-0.9); BILIRUBIN,TOTAL 6.3 mg/dL (0.2-2.0); BUN/CREATININE RATIO 13.33; CALCIUM SERUM 8.1 mg/dL (8.4-10.2); CREATININE SERUM 0.6 mg/dL (0.6-1.4); GLOM FILT RATE Estimated 142.8 mL/min (>60); PROTEIN TOTAL SERUM 6.6 g/dL (6.0-8.3)
[2016-12-28 21:55] LABS: POTASSIUM 2.9 mmol/L (3.5-5.1)
[2016-12-29] MEDS ORDERED: B COMPLEX-FOLI1 EACH PO (00:53)
[2016-12-29] MEDS ORDERED: CALCITRIOL0.25 MCG PO (00:54)
[2016-12-29] MEDS ORDERED: OS-CAL 500500 MG PO (00:55)
[2016-12-29] MEDS ORDERED: HYDROXYZINE HCL25 M1 PO (00:56)
[2016-12-29] MEDS ORDERED: K-DUR20 ME1 PO (00:57)
[2016-12-29] MEDS ORDERED: XIFAXAN550 MG PO (00:59)
[2016-12-29] MEDS ORDERED: ZINC SULFATE220 M1 PO (00:59)
[2016-12-29 08:28] LABS: BASOPHIL% 0.8 % (0-2.5); EOSINOPHIL# 0.1 X10e3 (0-0.7); HEMATOCRIT 24.4 % (35.0-45.0); HEMOGLOBIN 8.5 gm/dL (12.0-16.0); LYMPHOCYTE# 0.7 X10e3 (1.0-3.5); LYMPHOCYTE% 13.1 % (17.0-45.0); MEAN CELL VOLUME 93.9 FL (83-96); MEAN CORPUSCULAR HEMOGLOBIN 32.8 PG (28-34); MEAN CORPUSCULAR HGB CONC 34.9 g/dL (30-36); MEAN PLATELET VOLUME 10.6 FL (6.5-11.5); MONOCYTE# 0.5 X10e3 (0-1.0); MONOCYTE% 9.7 % (3.0-12.0); NEUTROPHIL# 3.7 X10e3 (1.5-7.1); NEUTROPHIL% 73.4 % (40-75); RED CELL DISTRIBUTION WIDTH 18.7 % (11.0-15.5)
[2016-12-29 08:36] LABS: CALCIUM SERUM 7.7 mg/dL (8.4-10.2); CREATININE SERUM 0.5 mg/dL (0.6-1.4); GLOM FILT RATE Estimated 151.6 mL/min (>60); MAGNESIUM 1.4 mg/dL (1.6-3.0); POTASSIUM 3.5 mmol/L (3.5-5.1)
[2016-12-29 09:15] LABS: DIFF IND YES; PLATELET COUNT 29 X10e3 (140-420)
[2016-12-29 10:47] LABS: PARTIAL THROMBOPLASTIN TIME 49.3 SECONDS (23.5-31.3)
[2016-12-29 10:51] LABS: PROTHROMBIN TIME (PATIENT) 22.1 SECONDS (10.0-11.7)
[2016-12-29 11:19] LABS: ACANTHOCYTES PRESENT; BURR CELLS PRESENT; PLATELET ESTIMATE DECREASED (NORMAL); SCHISTOCYTES PRESENT; TARGET CELLS SL; VACUOLIZATION SL
[2016-12-29 11:20] LABS: ANISOCYTOSIS SL; HYPOCHROMIA SL; POIKILOCYTOSIS SL
[2016-12-30 12:00] LABS: HEMOGLOBIN 8.4 gm/dL (12.0-16.0); MEAN CELL VOLUME 93.5 FL (83-96); MEAN CORPUSCULAR HEMOGLOBIN 32.5 PG (28-34); MEAN CORPUSCULAR HGB CONC 34.8 g/dL (30-36); MEAN PLATELET VOLUME 10.2 FL (6.5-11.5); RED BLOOD COUNT 2.57 X10e (3.90-5.30); RED CELL DISTRIBUTION WIDTH 18.9 % (11.0-15.5); WHITE BLOOD COUNT 3.5 X10e3 (4.0-10.5)
[2016-12-30 12:47] LABS: BUN/CREATININE RATIO 11.66; CALCIUM SERUM 7.8 mg/dL (8.4-10.2); CREATININE SERUM 0.6 mg/dL (0.6-1.4); GLOM FILT RATE Estimated 142.8 mL/min (>60); POTASSIUM 4.2 mmol/L (3.5-5.1)
[2016-12-31 05:49] LABS: BASOPHIL% 0.5 % (0-2.5); EOSINOPHIL# 0.1 X10e3 (0-0.7); EOSINOPHIL% 4.3 % (0.0-7.0); HEMATOCRIT 21.5 % (35.0-45.0); HEMOGLOBIN 7.6 gm/dL (12.0-16.0); LYMPHOCYTE# 0.7 X10e3 (1.0-3.5); LYMPHOCYTE% 24.7 % (17.0-45.0); MEAN CELL VOLUME 93.6 FL (83-96); MEAN CORPUSCULAR HEMOGLOBIN 33.1 PG (28-34); MEAN CORPUSCULAR HGB CONC 35.4 g/dL (30-36); MEAN PLATELET VOLUME 9.4 FL (6.5-11.5); MONOCYTE# 0.3 X10e3 (0-1.0); MONOCYTE% 10.4 % (3.0-12.0); NEUTROPHIL# 1.6 X10e3 (1.5-7.1); NEUTROPHIL% 60.1 % (40-75); RED CELL DISTRIBUTION WIDTH 18.5 % (11.0-15.5); WHITE BLOOD COUNT 2.6 X10e3 (4.0-10.5)
[2016-12-31 05:57] LABS: DIFF IND YES; PLATELET COUNT 27 X10e3 (140-420)
[2016-12-31 06:13] LABS: CALCIUM SERUM 7.9 mg/dL (8.4-10.2); CREATININE SERUM 0.6 mg/dL (0.6-1.4); GLOM FILT RATE Estimated 142.8 mL/min (>60); POTASSIUM 3.6 mmol/L (3.5-5.1)
[2016-12-31 07:39] LABS: ANISOCYTOSIS SL; PLATELET ESTIMATE DECREASED (NORMAL); POIKILOCYTOSIS SL; TARGET CELLS SL
[2017-01-01] MEDS ORDERED: EPLERENONE50 MG PO (14:40)
[2017-01-01] MEDS ORDERED: HYDROCODONE-IB1 EAC2 PO (14:42)
[2017-01-01] MEDS ORDERED: KRISTALOSE20 GM PO (14:47)
[2017-01-01] MEDS ORDERED: XIFAXAN550 MG PO ×2 (14:51→14:53)
[2017-01-01] MEDS ORDERED: BUMEX2 MG PO ×2 (14:58→15:00)
== END 2017-01-01 15:28 | disposition home or self-care (01) | DRG 433 ==
LOC: CED 19:17 → CEDOF 12-29 00:35 → CED 12-29 00:35 → CEDOF 12-29 01:20 → C3A PCU 12-29 01:20 → CEDOF 12-29 02:54 → C3A PCU 12-29 02:54
PROVIDERS: Emergency Medicine; Internal Medicine
PROC: B24BYZZ Ultrasonography of Heart with Aorta using Other Contrast (ICD-10-PCS; principal; 2016-12-29)
DX: K74.60 Unspecified cirrhosis of liver (principal); K76.6 Portal hypertension; D61.818 Other pancytopenia; J90 Pleural effusion, not elsewhere classified; I42.8 Other cardiomyopathies; R18.8 Other ascites; D69.6 Thrombocytopenia, unspecified; F11.20 Opioid dependence, uncomplicated; R16.1 Splenomegaly, not elsewhere classified; K75.4 Autoimmune hepatitis; E87.6 Hypokalemia; K72.90 Hepatic failure, unspecified without coma; G89.29 Other chronic pain
CPT/HCPCS: 36415; 71020; 74022; 78582; 80048; 80076; 81003; 82140; 82150; 83690; 83735; 85025; 85027; 85610; 85730; 87086; 93306; 93970; 96374; 96375; 99285; A9540; A9567; J1170; J1200; J2185; J2550

== ENCOUNTER 2017-01-03 01:39 | Observation (INO) | payer OTHER ==
[~2017-01-03] VITALS: Ht 188 cm; Wt 73.2 kg
--- NOTE | ~2017-01-03 | XA75 ---
[facility] A Service of [facility] RADIOLOGY TEXT RESULTS PATIENT: CARIN HEMPHILL LOCATION: C2A 230- : 87 UNIT #: [id number] AGE: [address]: Luiz Thompson MD SEX: F ORDER DR: [id number] [facility] [address] [place], [place] [address] [id number] I MR#: [id number] Acc #: [id number] NAME: CARIN HEMPHILL. : 1985 SEX: F STUDY DATE/TIME: 01/03/2017 10:29 UNIT: C2 ROOM: 230 STUDY DESCRIPTION: XA CVC Non-Tunnel Attending Physician: Luiz Thompson M.D. Ordering Physician: Luzi Thompson M.D. Primary Care Physician: Daniel Dietrich M.D. MEDICAL IMAGING REPORT This report is preliminary unless electronic signature is present EXAM Central line placement INDICATIONS Need for IV access in a patient with cirrhosis and portal hypertension. PROCEDURE The procedure was explained to the patient including risks, benefits potential complications potential for alternative forms of treatment informed consent was obtained and prior to initiating procedure a formal time-out procedure was performed. Using all elements of maximal sterile barrier technique including hand hygiene, caps, sterile gowns and gloves and masks the right neck was prepped with 2% Chlorhexidine for cutaneous antisepsis and covered with a large sterile sheet. The ultrasound probe was covered with a sterile probe cover and sterile gel was applied. Real-time sterile ultrasound guidance was used to localize the right internal jugular vein which was found to be patent and compressible. A hard copy ultrasound image was obtained. After localization with 1% Xylocaine the vein was punctured using real-time sterile ultrasound guidance and an 0.018 guidewire was advanced into the superior vena cava under fluoroscopic guidance. Micro puncture sheath was placed and a J-wire was advanced into the right atrium tract was dilated and a new triple-lumen central venous line was advanced over the wire and positioned within the right atrium. Following placement of the catheter it flushed and aspirated easily. It was secured using two 2-0 silk sutures, total fluoroscopy time was 0.1 minutes AK was 1 mGy. IMPRESSION Successful placement of a right internal jugular vein central venous line which terminates within the right atrium. This catheter is ready for immediate use. Ultrasound and fluoroscopy were used during placement of the catheter, and permanent images were saved [facility] A Service of [facility] RADIOLOGY TEXT RESULTS PATIENT: CARIN HEMPHILL LOCATION: [place] [address] : 87 UNIT #: [id number] AGE: [address]: Luiz Thompson MD SEX: F ORDER DR: Dictated by... Tania Fortune M.D. THIS IS AN ELECTRONICALLY VERIFIED REPORT Tania Fortune M.D. at 01/05/2017 4:54 PM AFF/rnr TD: 01/04/2017 13:17 JOB #: [id number] MEDICAL IMAGING REPORT Page 1 of 1 COPY
--- NOTE | ~2017-01-03 | HP ---
Unit #: [id number] #: [id number] Patient: CARIN HEMPHILL [id number] [address] [place], [place] [address] [id number] I MR#: [id number] NAME: CARIN HEMPHILL ROOM: 312 Age: 31 Sex: F Admission Date: 01/03/2017 : 1985 Attending Physician: Luiz Thompson M.D. Primary Care Physician: Daniel Dietrich M.D. HISTORY AND PHYSICAL REASON FOR ADMISSION Intractable nausea and vomiting. HISTORY OF PRESENT ILLNESS The patient is a 31-year-old female recently discharged from our hospital on January 01, 2017. She states she went home, was unable to tolerate p.o., presented back to the hospital for further evaluation. She was unable to take her p.o. pain medications. 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 She was apparently evaluated at [facility] but since then, she was removed from their practice secondary to inappropriate behavior that patient's mother had with their practice. She was then asked to followup at [facility] to which she has been doing so off and on in the past. Unfortunately secondary to her tobacco and marijuana addiction, she was taken off the transplant list. She does have a very strong history of ascites recurrent. Unfortunately in the past, paracentesis could not be performed secondary to numerous abdominal wall varices. She also has a longstanding history of encephalopathic issues secondary to end-stage cirrhosis as well as chronic pain syndrome with narcotic dependence. At this point in time, patient is currently comfortable. She does not appear to be in any acute distress. PAST MEDICAL HISTORY 1. History of autoimmune hepatitis. 2. Prior history of bacteremia. 3. ESBL UTI. 4. MRSA in past. 5. History of gram-negative sepsis. 6. Nonischemic cardiomyopathy. 7. Prior history of migraine headaches. 8. Recurrent hospital admissions secondary to ascites. 9. Abdominal wall varices. 10. Recurrent hepatic encephalopathy episodes. 11. Substance abuse with marijuana, tobacco addiction/dependence. PAST SURGICAL HISTORY 1. Bone marrow biopsy. 2. Liver biopsy. Unit #: [id number] #: [id number] Patient: CARIN HEMPHILL SOCIAL HISTORY Resides at home with her mother. Smokes marijuana as well as tobacco. FAMILY HISTORY Hypertension, diabetes. ALLERGIES ELOY inhibitors, codeine, aspirin, acetaminophen, Aldactone. HOME MEDICATIONS 1. Phenergan. 2. Protonix. 3. Mag-Ox. 4. B complex. 5. Nadolol. 6. OxyContin. 7. ProAmatine. 8. Seroquel. 9. Hydrocodone. 10. Xifaxan. 11. Bumex. 12. Potassium. 13. Zinc sulfate. 14. Hydroxyzine. 15. Os-Nehemiah. 16. Calcitriol. REVIEW OF SYSTEMS A 12-point is otherwise negative except for those positive I noted in the HPI. PHYSICAL EXAMINATION GENERAL: Patient is an -Scottish female, poorly nourished with a swollen abdomen noted who is awake, alert, no acute distress. HEENT: Head: Atraumatic, normocephalic. Ears: Tympanic membranes did not reveal any erythema or injection. NECK: Supple. CARDIOVASCULAR: S1, S2. Tachycardic without murmur. RESPIRATORY: Diminished anterior auscultation. GASTROINTESTINAL/ABDOMEN: Distention noted. Diffuse tenderness noted. EXTREMITIES: No evidence of any lower extremity edema. NEUROLOGIC: The patient is A and O x3. VITAL SIGNS: Temperature 98, pulse 120, respiratory rate 16, blood pressure 109/60. INITIAL IMPRESSION 1. Intractable nausea and vomiting. 2. Chronic pain syndrome. 3. End-stage cirrhosis. 4. Autoimmune hepatitis. 5. Recurrent ascites. 6. Abdominal wall varices. 7. Prior history of pleural effusion. 8. Chronic pain syndrome. 9. Marijuana use. 10. Tobacco dependence. 11. Longstanding history of noncompliance. Unit #: [id number] #: [id number] Patient: CARIN HEMPHILL PLAN 1. Admission med/surg floor. 2. GI consultation with Dr. Lala. 3. Reglan. 4. Clear diet, advance as tolerated. 5. Routine laboratory studies. 6. Home medications will be continued. 7. We will avoid IV pain medications for now. 8. I anticipate disposition back home within 24 hours. 9. Overall long-term prognosis of this patient is very poor. 10. Hospice discussion was had with patient's family in the past, but they are adamantly refusing at the present time. She has had issues with compliance both at [facility] as well as [facility] [place]. Unfortunately, her prognosis is dismal. Dictated by Dave Cabrera/paolo TD: 01/03/2017 15:22 JOB #: [id number] HISTORY AND PHYSICAL Page 1 of 1 X Luiz Thompson MD X HISTORY AND PHYSICAL
--- NOTE | ~2017-01-03 | CR63 ---
[facility] A Service of [facility] RADIOLOGY TEXT RESULTS PATIENT: CARIN HEMPHILL LOCATION: [facility] : 87 UNIT #: [id number] AGE: [address]: Luiz Thompson MD SEX: F ORDER DR: [id number] [facility] [address]. [place], [place] [address] [id number] I MR#: [id number] Acc #: [id number] NAME: CARIN HEMPHILL : 1985 SEX: F STUDY DATE/TIME: 01/03/2017 3:00 UNIT: C3A PCU ROOM: 312 STUDY DESCRIPTION: CR Chest 2 View Attending Physician: Luiz Thompson M.D. Ordering Physician: Ayden Polanco M.D. Primary Care Physician: Daniel Dietrich M.D. MEDICAL IMAGING REPORT This report is preliminary unless electronic signature is present EXAM PA and lateral chest. DATE 01/03/2017 HISTORY Shortness of breath today with abdominal pain and swelling, cirrhosis and nausea and vomiting. COMPARISON PA and lateral chest radiographs, 12/29/2016. FINDINGS Small left pleural effusion with left basilar atelectasis or infiltrate unchanged. Mild right basilar atelectasis or infiltrate has developed since the 12/29/2016 exam. IMPRESSION 1. Stable small left pleural effusion with left basilar atelectasis or infiltrate. 2. Development of mild right basilar atelectasis or infiltrate since 12/29/2016. Dictated by... Le Arechiga M.D. THIS IS AN ELECTRONICALLY VERIFIED REPORT Le Arechiga M.D. at 01/03/2017 9:58 PM [facility]/nohemy [facility] A Service [facility] RADIOLOGY TEXT RESULTS PATIENT: CARIN HEMPHILL LOCATION: [facility] : 87 UNIT #: [id number] AGE: [address]: Luiz Thompson MD SEX: F ORDER DR: TD: 01/03/2017 11:10 JOB #: [id number] MEDICAL IMAGING REPORT Page 1 of 1 COPY
--- NOTE | ~2017-01-03 | DS ---
Unit #: [id number] #: [id number] Patient: CARIN HEMPHILL [id number] [facility]. [place], [place] [address] [id number] I MR#: [id number] NAME: CARIN HEMPHILL ROOM: 230 Age: 31 Sex: F Admission Date: 01/03/2017 : 1985 Discharge Date: 01/06/2017 Attending Physician: Luiz Thompson M.D. Primary Care Physician: Daniel Dietrich M.D. DISCHARGE SUMMARY REASON FOR ADMISSION Intractable nausea and vomiting. HISTORY OF PRESENT ILLNESS/HOSPITAL COURSE Please refer to H and P for details of initial part of hospital stay. The patient was recently discharged from our hospital secondary to inability to tolerate p.o. She presented back. She was subsequently admitted, placed on med/surg floor. She received symptom management in regard to her nausea, vomiting. It did settle. She was able to tolerate diet well without difficulty. In regard to her history of endstage cirrhosis, portal hypertension, varices of esophagus and abdominal wall varices, the patient was placed on IV diuresis initially. She was kept on her routine home medications. No changes were made. Her electrolytes were appropriately repleted while she was here. No changes were made at time of discharge to her home regimen. Today, on January 06, 2017, her hemoglobin currently stands at 7.1, which is her baseline. Platelet count is 24. White count is 2.7. Overall, these are the patient's baseline numbers. Her ammonia at time of discharge is 130. The patient is currently clinically stable for discharge home, as her nausea and vomiting have now resolved. She was given a prescription for OxyIR 5 mg p.o. q.4-6 p.r.n. (#20) secondary to chronic pain. Overall, she does need to follow up with the [facility] system for possibility of liver transplant. She has been removed from the [facility] GI clinic team secondary to (1) /behavioral issues by the patient's mother. They are no longer able to see the patient downtown. Here at [facility], Dr. Lala states that he has exhausted all measures that are possible here, and it was reinforced on numerous occasions the patient should follow up at [facility] for further hospital admissions, possible workup as an outpatient for liver transplant. Overall her long-term prognosis is very poor. Her life expectancy without liver transplant is likely weeks to months. FINAL DISCHARGE DIAGNOSES 1. Autoimmune hepatitis since age 14. 2. Endstage cirrhosis. 3. Prior history of extended spectrum beta-lactamase bacteremia. 4. Abdominal wall varices. Unit #: [id number] #: [id number] Patient: CARIN HEMPHILL 5. Varices of the esophagus. 6. Portal hypertension. 7. Chronic pancytopenia. Baseline numbers outlined above. 8. Hepatic encephalopathy with retention of ammonia. Baseline likely close to 100. 9. Prior history of nonischemic cardiomyopathy. 10. Chronic pain syndrome with narcotic drug-seeking behavior. 11. Substance abuse; tobacco. Currently the patient is stating that she is trying her best to quit marijuana, as well as tobacco, so that she can be placed on liver transplant list. 12. Prior history of noncompliance. FINAL DISCHARGE MEDICATIONS Remain unchanged from previous discharge and/or home medications with the addition of OxyIR 5 mg p.o. q.4-6 p.r.n. LONG-TERM PROGNOSIS Poor. CHANCE OF READMISSION High. NOTE: Again, reinforced with the patient that, for further hospital evaluations and complications, she should be transferred and/or evaluated at [facility] only, as she has exhausted all measures here with the GI team. As well, [facility] is unable to provide further care for her there. This has been reinforced numerous times with her prior to discharge. Dictated by... Dave Cabrera/otis TD: 01/10/2017 08:33 JOB #: [id number] DISCHARGE SUMMARY Page 1 of 1 X Luiz Thompson MD X DISCHARGE SUMMARY
[~2017-01-03 01:39] MED LIST changes: +B COMPLEX-FOLI1 EACH PO; +CALCITRIOL0.25 MCG PO; +HYDROCODONE-IB1 EAC2 PO; +K-DUR20 ME1 PO; +OS-CAL 500500 MG PO; +ZINC SULFATE220 M1 PO
[2017-01-03 03:47] LABS: BASOPHIL% 0.7 % (0-2.5); EOSINOPHIL# 0.1 X10e3 (0-0.7); EOSINOPHIL% 2.1 % (0.0-7.0); HEMATOCRIT 20.4 % (35.0-45.0); HEMOGLOBIN 7.3 gm/dL (12.0-16.0); LYMPHOCYTE# 0.5 X10e3 (1.0-3.5); LYMPHOCYTE% 16.2 % (17.0-45.0); MEAN CELL VOLUME 93.2 FL (83-96); MEAN CORPUSCULAR HEMOGLOBIN 33.5 PG (28-34); MEAN CORPUSCULAR HGB CONC 35.9 g/dL (30-36); MEAN PLATELET VOLUME 9.6 FL (6.5-11.5); MONOCYTE# 0.3 X10e3 (0-1.0); MONOCYTE% 9.4 % (3.0-12.0); NEUTROPHIL# 2.3 X10e3 (1.5-7.1); NEUTROPHIL% 71.6 % (40-75); RED BLOOD COUNT 2.19 X10e (3.90-5.30); RED CELL DISTRIBUTION WIDTH 18.6 % (11.0-15.5); WHITE BLOOD COUNT 3.2 X10e3 (4.0-10.5)
[2017-01-03 04:03] LABS: PLATELET COUNT 23 X10e3 (140-420)
[2017-01-03 04:04] LABS: DIFF IND YES
[2017-01-03 04:10] LABS: PLATELET ESTIMATE DECREASED (NORMAL)
[2017-01-03 04:11] LABS: ANISOCYTOSIS MOD; TARGET CELLS MOD
[2017-01-03 04:13] LABS: ALBUMIN SERUM 1.7 g/dL (3.5-5.0); BILIRUBIN, DIRECT 1.1 mg/dL (0.0-0.2); BILIRUBIN,INDIRECT 2.2 mg/dL (0.0-0.9); BILIRUBIN,TOTAL 3.3 mg/dL (0.2-2.0); CALCIUM SERUM 7.3 mg/dL (8.4-10.2); CREATININE SERUM 0.5 mg/dL (0.6-1.4); GLOM FILT RATE Estimated 151.6 mL/min (>60); PROTEIN TOTAL SERUM 5.2 g/dL (6.0-8.3)
[2017-01-03 04:14] LABS: POTASSIUM 2.5 mmol/L (3.5-5.1)
[2017-01-03 04:18] LABS: ACANTHOCYTES PRESENT
[2017-01-03 04:19] LABS: OVALOCYTES PRESENT; SCHISTOCYTES PRESENT
[2017-01-03 07:17] LABS: BASOPHIL% 0.3 % (0-2.5); EOSINOPHIL# 0.1 X10e3 (0-0.7); EOSINOPHIL% 2.8 % (0.0-7.0); HEMATOCRIT 20.2 % (35.0-45.0); HEMOGLOBIN 7.2 gm/dL (12.0-16.0); LYMPHOCYTE# 0.5 X10e3 (1.0-3.5); LYMPHOCYTE% 17.5 % (17.0-45.0); MEAN CELL VOLUME 93.6 FL (83-96); MEAN CORPUSCULAR HEMOGLOBIN 33.5 PG (28-34); MEAN CORPUSCULAR HGB CONC 35.8 g/dL (30-36); MEAN PLATELET VOLUME 8.8 FL (6.5-11.5); MONOCYTE# 0.3 X10e3 (0-1.0); NEUTROPHIL# 1.9 X10e3 (1.5-7.1); NEUTROPHIL% 69.4 % (40-75); RED BLOOD COUNT 2.16 X10e (3.90-5.30); RED CELL DISTRIBUTION WIDTH 19.1 % (11.0-15.5); WHITE BLOOD COUNT 2.7 X10e3 (4.0-10.5)
[2017-01-03 07:19] LABS: DIFF IND NO; PLATELET COUNT 20 X10e3 (140-420)
[2017-01-03 07:43] LABS: BUN/CREATININE RATIO 7.14; CALCIUM SERUM 7.2 mg/dL (8.4-10.2); CREATININE SERUM 0.7 mg/dL (0.6-1.4); GLOM FILT RATE Estimated 135.7 mL/min (>60)
[2017-01-03 07:48] LABS: POTASSIUM 2.8 mmol/L (3.5-5.1)
[2017-01-04] LABS: MAGNESIUM 1.4 mg/dL (1.6-3.0); POTASSIUM 3.1 mmol/L (3.5-5.1)
[2017-01-04 06:13] LABS: HEMATOCRIT 20.5 % (35.0-45.0); HEMOGLOBIN 7.3 gm/dL (12.0-16.0); MEAN CELL VOLUME 94.8 FL (83-96); MEAN CORPUSCULAR HEMOGLOBIN 33.6 PG (28-34); MEAN CORPUSCULAR HGB CONC 35.5 g/dL (30-36); MEAN PLATELET VOLUME 9.6 FL (6.5-11.5); RED BLOOD COUNT 2.16 X10e (3.90-5.30); RED CELL DISTRIBUTION WIDTH 19.2 % (11.0-15.5); WHITE BLOOD COUNT 3.1 X10e3 (4.0-10.5)
[2017-01-04 07:02] LABS: BLOOD UREA NITROGEN <5 mg/dL (9-23); BUN/CREATININE RATIO 8.33; CALCIUM SERUM 7.4 mg/dL (8.4-10.2); CARBON DIOXIDE 25 mmol/L (22-31); CHLORIDE 99 mmol/L (100-111); CREATININE SERUM 0.6 mg/dL (0.6-1.4); GLOM FILT RATE Estimated 142.8 mL/min (>60); GLUCOSE FASTING 116 mg/dL (70-110); SODIUM 128 mmol/L (135-145)
[2017-01-04 07:04] LABS: POTASSIUM 2.8 mmol/L (3.5-5.1)
[2017-01-05 06:24] LABS: HEMATOCRIT 22.8 % (35.0-45.0); HEMOGLOBIN 8.2 gm/dL (12.0-16.0); MEAN CELL VOLUME 94.6 FL (83-96); MEAN CORPUSCULAR HEMOGLOBIN 34.1 PG (28-34); MEAN PLATELET VOLUME 9.5 FL (6.5-11.5); RED BLOOD COUNT 2.41 X10e (3.90-5.30); RED CELL DISTRIBUTION WIDTH 19.2 % (11.0-15.5)
[2017-01-05 06:25] LABS: WHITE BLOOD COUNT 4.8 X10e3 (4.0-10.5)
[2017-01-05 07:18] LABS: BUN/CREATININE RATIO 8.33; CALCIUM SERUM 7.6 mg/dL (8.4-10.2); CREATININE SERUM 0.6 mg/dL (0.6-1.4); GLOM FILT RATE Estimated 142.8 mL/min (>60); MAGNESIUM 1.2 mg/dL (1.6-3.0); POTASSIUM 3.1 mmol/L (3.5-5.1)
[2017-01-06 07:05] LABS: HEMOGLOBIN 7.1 gm/dL (12.0-16.0); MEAN CELL VOLUME 95.1 FL (83-96); MEAN CORPUSCULAR HEMOGLOBIN 33.6 PG (28-34); MEAN CORPUSCULAR HGB CONC 35.3 g/dL (30-36); MEAN PLATELET VOLUME 10.1 FL (6.5-11.5); RED BLOOD COUNT 2.1 X10e (3.90-5.30); RED CELL DISTRIBUTION WIDTH 19.1 % (11.0-15.5); WHITE BLOOD COUNT 2.7 X10e3 (4.0-10.5)
[2017-01-06 07:16] LABS: ALBUMIN SERUM 1.6 g/dL (3.5-5.0); BILIRUBIN,TOTAL 4.5 mg/dL (0.2-2.0); BUN/CREATININE RATIO 8.57; CREATININE SERUM 0.7 mg/dL (0.6-1.4); GLOM FILT RATE Estimated 135.7 mL/min (>60); MAGNESIUM 1.3 mg/dL (1.6-3.0); PROTEIN TOTAL SERUM 4.9 g/dL (6.0-8.3)
[2017-01-06] MEDS ORDERED: OXYIR5 MG PO (10:58)
[2017-01-06] MEDS ORDERED: FOLTX TABLET1 EACH PO (11:01)
[2017-01-06 11:31] LABS: HEMATOCRIT 20.9 % (35.0-45.0); HEMOGLOBIN 7.3 gm/dL (12.0-16.0)
== END 2017-01-06 13:06 | disposition home or self-care (01) ==
LOC: CED 01:39 → CEDOF 04:30 → C2A 04:30 → CEDOF 04:38 → CED 04:38 → CEDOF 06:07 → C3A PCU 06:07 → C2A 17:23
PROVIDERS: Emergency Medicine; Family Medicine
DX: R11.2 Nausea with vomiting, unspecified (principal); G89.4 Chronic pain syndrome; K74.60 Unspecified cirrhosis of liver; K75.4 Autoimmune hepatitis; R18.8 Other ascites; I86.8 Varicose veins of other specified sites; Z86.14 Personal history of Methicillin resistant Staphylococcus aureus infection; Z88.8 Allergy status to other drugs, medicaments and biological substances; Z79.891 Long term (current) use of opiate analgesic; Z79.899 Other long term (current) drug therapy
CPT/HCPCS: 36415; 71020; 76937; 77001; 80048; 80053; 80076; 82140; 82150; 83690; 83735; 84132; 85014; 85018; 85025; 85027; 96360; 96365; 96366; 96375; 96376; 99285; C1894; G0378; J1170; J1642; J1940; J2270; J2550; J2765; J3475

== ENCOUNTER 2017-01-16 19:30 | Emergency (ER) | payer OTHER ==
[~2017-01-16] VITALS: Ht 188 cm; Wt 69.4 kg
[~2017-01-16 19:30] MED LIST changes: +FOLTX TABLET1 EACH PO; +OXYIR5 MG PO
[2017-01-17 00:53] LABS: BASOPHIL% 0.7 % (0-2.5); EOSINOPHIL# 0.1 X10e3 (0-0.7); EOSINOPHIL% 1.7 % (0.0-7.0); HEMATOCRIT 30.3 % (35.0-45.0); HEMOGLOBIN 10.3 gm/dL (12.0-16.0); LYMPHOCYTE# 0.5 X10e3 (1.0-3.5); LYMPHOCYTE% 12.3 % (17.0-45.0); MEAN CELL VOLUME 97.3 FL (83-96); MEAN CORPUSCULAR HEMOGLOBIN 33.2 PG (28-34); MEAN CORPUSCULAR HGB CONC 34.1 g/dL (30-36); MEAN PLATELET VOLUME 9.5 FL (6.5-11.5); MONOCYTE# 0.3 X10e3 (0-1.0); MONOCYTE% 7.3 % (3.0-12.0); NEUTROPHIL# 3.1 X10e3 (1.5-7.1); RED BLOOD COUNT 3.11 X10e (3.90-5.30); RED CELL DISTRIBUTION WIDTH 18.4 % (11.0-15.5)
[2017-01-17 00:57] LABS: DIFF IND YES; PLATELET COUNT 30 X10e3 (140-420)
[2017-01-17 00:59] LABS: PLATELET ESTIMATE DECREASED (NORMAL)
[2017-01-17 01:01] LABS: ANISOCYTOSIS SL
[2017-01-17 01:02] LABS: BURR CELLS PRESENT; POIKILOCYTOSIS SL; TARGET CELLS SL
[2017-01-17 01:30] LABS: ALBUMIN SERUM 2.1 g/dL (3.5-5.0); BILIRUBIN, DIRECT 1.2 mg/dL (0.0-0.2); BILIRUBIN,INDIRECT 2.8 mg/dL (0.0-0.9); CALCIUM SERUM 7.9 mg/dL (8.4-10.2); CREATININE SERUM 0.6 mg/dL (0.6-1.4); GLOM FILT RATE Estimated 142.8 mL/min (>60); POTASSIUM 3.2 mmol/L (3.5-5.1); PROTEIN TOTAL SERUM 5.8 g/dL (6.0-8.3)
== END 2017-01-17 02:50 | disposition home or self-care (01) ==
LOC: CED 19:30
DX: K72.90 Hepatic failure, unspecified without coma (principal); D64.9 Anemia, unspecified; D69.6 Thrombocytopenia, unspecified; Z86.19 Personal history of other infectious and parasitic diseases; Z88.8 Allergy status to other drugs, medicaments and biological substances; Z88.6 Allergy status to analgesic agent; Z79.899 Other long term (current) drug therapy
CPT/HCPCS: 36415; 80048; 80076; 82140; 82150; 83690; 85025; 96374; 96375; 96376; 99284; J1170; J2550

== ENCOUNTER 2017-01-21 00:46 | Inpatient (IN) | payer OTHER ==
[~2017-01-21] VITALS: Ht 188 cm; Wt 79.5 kg
--- NOTE | ~2017-01-21 | CO ---
Unit #: [id number] #: [id number] Patient: CARIN HEMPHILL [id number] [address] [address] [id number] I MR#: [id number] NAME: CARIN HEMPHILL. ROOM: [facility] Age: 31 Sex: F Admission Date: 01/21/2017 : 1985 Attending Physician: Luiz Thompson M.D. Primary Care Physician: Daniel Dietrich M.D. Consultation Date: 01/21/2017 CONSULTATION REPORT CHIEF COMPLAINT Intractable nausea and vomiting, hypokalemia and hepatic encephalopathy. REASON FOR CONSULTATION ICU management. HISTORY OF PRESENT ILLNESS This is a 31-year-old female with a past medical history significant for autoimmune hepatitis that has progressed to liver cirrhosis with portal hypertension. The patient presented to the emergency room with intractable nausea and vomiting. The patient currently is completely lethargic and unable to follow any commands. Story was obtained from the medical record. The patient was admitted to this facility at the beginning of January for similar symptom of nausea and vomiting. She was discharged home. However, she developed again some nausea and vomiting yesterday. There was no reported fever, chills or night sweats. The patient was admitted for hydration and symptomatic management. However, she was found earlier this morning to be very lethargic and unresponsive, so she was transferred to the ICU. The patient currently has no IV access and she is difficult to stick. PAST MEDICAL HISTORY 1. Autoimmune hepatitis. 2. Splenomegaly. 3. Thrombocytopenia. 4. Recurrent spontaneous bacterial peritonitis. 5. ESBL bacteremia. 6. Liver mass. 7. Nonischemic cardiomyopathy. 8. Migraine. PAST SURGICAL HISTORY 1. Bone marrow biopsy. 2. Colonoscopy. SOCIAL HISTORY The patient lives with her mother. No longer smokes or uses alcohol or street drugs. FAMILY HISTORY Hypertension, diabetes, prostate cancer. Unit #: [id number] #: [id number] Patient: CARIN HEMPHILL ALLERGIES Tylenol, codeine, ELOY inhibitor, aspirin, spironolactone, Zofran. HOME MEDICATIONS 1. Vitamin D. 2. Inspra. 3. Lactulose. 4. Rifaximin. 5. Midodrine. 6. Nadolol. 7. Bumex. 8. Atarax. 9. Magnesium. 10. Protonix. 11. Seroquel. 12. Zinc. 13. Oxycodone. REVIEW OF SYSTEMS Unable to obtain due to the patient's condition. PHYSICAL EXAMINATION GENERAL: The patient is chronically ill and currently unresponsive. VITALS: Blood pressure 125/59, respiratory rate 8-10, O2 saturations 98%. HEENT: Atraumatic, normocephalic. Pupils equally round and reactive to light and accommodation. Extraocular muscles intact. NECK: Supple. No jugular venous distension. No lymphadenopathy. CHEST: Clear to auscultation bilaterally. HEART: S1 and S2. No murmur, gallop or rub. ABDOMEN: Distended with shifting dullness. Positive hepatosplenomegaly. EXTREMITIES: Plus 1 edema in the lower extremities. SKIN: No rashes. NEUROLOGIC: Lethargic, unresponsive, but she withdraws to painful stimuli. DIAGNOSTIC STUDIES IMAGING: Chest x-ray is unremarkable. LABORATORY: Creatinine 0.6, potassium 3.3, calcium 7.7, white blood cell count 1.9, hemoglobin 8.4. ASSESSMENT 1. Hepatic encephalopathy. 2. Rule out spontaneous bacterial peritonitis. 3. Severe thrombocytopenia. 4. Leukopenia. 5. Chronic anemia. 6. Liver cirrhosis. 7. Hyponatremia. 8. Hypokalemia. 9. Malnutrition. PLAN 1. The patient is critical. She will be watched in the ICU very closely. No need for intubation and vent support at this point, but she will be reassessed periodically. 2. Central line to be placed as soon as possible for IV access. Unit #: [id number] #: [id number] Patient: CARIN HEMPHILL 3. Paracentesis for both diagnostic and therapeutic purposes. 4. We may need to start Rocephin based on her ascites study. Currently she finished a course of Rocephin. 5. Blood transfusion and platelets as needed. 6. Place Dobbhoff tube and start lactulose for elevated ammonia level. 7. SCDs and GI prophylaxis. I would like to thank Dr. Thompson for allowing me to be part of this patient's care. Dictated by... Dave Rosado TD: 01/21/2017 14:07 JOB #: [id number] CONSULTATION REPORT Page 1 of 1 X CHRISSY DEE MD CONSULTATION REPORT
--- NOTE | ~2017-01-21 | OR ---
Unit #: [id number] #: [id number] Patient: CARIN HEMPHILL [id number] [address] [address] [id number] I MR#: [id number] NAME: CARIN HEMPHILL ROOM: [facility] Date of Procedure: 01/21/2017 Admission Date: 01/21/2017 Surgeon: Chrissy Carroll M.D. : 1985 Attending Physician: Luiz Thompson M.D. Primary Care Physician: Daniel Dietrich M.D. PROCEDURE OPERATIVE NOTE PROCEDURE PERFORMED Left intrajugular central venous catheter placement with ultrasound guidance. INDICATION FOR PROCEDURE Lack of IV access and hepatic encephalopathy. PREOPERATIVE DIAGNOSIS Hepatic encephalopathy. POSTOPERATIVE DIAGNOSIS Hepatic encephalopathy. PREMEDICATIONS Lidocaine 1% topical. COMPLICATIONS None. DESCRIPTION OF PROCEDURE An informed consent was obtained from the patient's mother after explaining the benefit and risk of this procedure. Patient was prepped and positioned in a proper way. Then her left neck was cleaned with chlorhexidine. Then a sterile body drape was applied. Then with the ultrasound guidance, a needle was inserted in the left IJ until blood flow was obtained. Then a guidewire was inserted and the needle was removed. Then a dilator was inserted over the guidewire and then the catheter was eventually threaded over the guidewire and the latter was removed eventually. The catheter was sutured in place and flushed appropriately. Biopatch and clean dressing was applied and STAT chest x-ray is pending at the time of dictation. Dictated by... Chrissy Carroll M.D. EA/paolo TD: 01/21/2017 15:11 JOB #: [id number] Unit #: [id number] #: [id number] Patient: CARIN HEMPHILL PROCEDURE OPERATIVE NOTE Page 1 of 1 X CHRISSY DEE MD X PROCEDURE OPERATIVE NOTE
--- NOTE | ~2017-01-21 | HP ---
Unit #: [id number] #: [id number] Patient: CARIN HEMPHILL [id number] [address] [place], [place] [address] [id number] I MR#: [id number] NAME: CARIN HEMPHILL. ROOM: 42144 Age: 31 Sex: F Admission Date: 01/21/2017 : 1985 Attending Physician: Sherin Mckinney M.D. Primary Care Physician: Daniel Dietrich M.D. HISTORY AND PHYSICAL CHIEF COMPLAINT Intractable nausea and vomiting with hypokalemia and hepatic encephalopathy. 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 The patient was last admitted to this facility 01/03 through 01/06/2017 for intractable nausea and vomiting. States that after discharge home she began to develop nausea and vomiting. Was actually seen at [facility] ER yesterday. Went home and felt worse. Notes small amount of hematemesis, i.e. spots of blood in her emesis. Notes some vague right sided chest discomfort and abdominal discomfort. Now is unable to keep down her medications, and her current potassium level is 2.8, ammonia level 146. In the ER, she was given 10 mg of IV Reglan, 1 mg of Dilaudid, and bolused with 500 cc of saline. She is feeling a little bit better and asking for ice chips. She plans to follow up with [place] later this month and has an appointment with the transplant team. PAST MEDICAL HISTORY 1. Autoimmune hepatitis since age 14. Now has cirrhosis with portal hypertension and esophageal varices requiring multiple endoscopies and banding. Also, associated hepatic encephalopathy, recurrent ascites, splenomegaly, coagulopathy and pancytopenia. 2. Splenomegaly associated with thrombocytopenia. 3. Previous admissions in the past for spontaneous bacterial peritonitis with Gram-negative sepsis. 4. ESBL bacteremia, MRSA, C. difficile colitis and beta hemolytic Strep sepsis. 5. History of a liver mass, status post liver biopsy. 6. Nonischemic cardiomyopathy with previous ejection fraction 45% to 50%. 7. Migraine headaches. 8. History of hyperkalemia in the past due to Aldactone. 9. Bone marrow biopsy. 10. Colonoscopy, hemorrhoids were seen. ALLERGIES Intolerant to Tylenol, codeine, ELOY inhibitors, aspirin, spironolactone. States that Zofran doesn't usually work. MEDICATIONS Unit #: [id number] #: [id number] Patient: CARIN HEMPHILL Home medications from the best I can determine include: 1. Phenergan. 2. Rocaltrol 0.25 mg daily. 3. Inspra 50 mg daily. 4. Lactulose 30 mL t.i.d. 5. Xifaxan 550 mg b.i.d. 6. ProAmatine 4 mg t.i.d. 7. Nadolol 20 mg b.i.d. 8. Bumex 2 mg b.i.d. 9. Os-Nehemiah 250 mg b.i.d. 10. Atarax 25 mg t.i.d. p.r.n. 11. Magnesium oxide 400 mg b.i.d. 12. Protonix 40 mg b.i.d. 13. Potassium 20 mEq, four tablets b.i.d. p.r.n. Phenergan. 14. Seroquel 50 mg q. h.s. 15. Zinc. 16. Oxycodone 20 mg t.i.d. FAMILY HISTORY Hypertension, diabetes mellitus, prostate cancer. SOCIAL HISTORY The patient lives with her mother. No longer smokes, does not drink alcohol nor does she use illicit drugs. REVIEW OF SYSTEMS Notable for nausea, vomiting, spots of blood in the emesis, chest discomfort, abdominal discomfort, cirrhosis, autoimmune hepatitis, pancytopenia, multi-microbial bacterial infections. As dictated above, nonischemic cardiomyopathy. All other systems were reviewed and are negative. PHYSICAL EXAMINATION GENERAL: Chronically ill appearing 31-year-old female. VITAL SIGNS: Temperature 98.9, pulse 112, respirations 16, blood pressure 130/80. O2 saturation is 99% on room air. HEENT: Eyes PERRLA. Extraocular muscles are intact. Scleral icterus is noted. Pharynx is benign. NECK: Supple without adenopathy or thyromegaly. CHEST: Clear. CARDIAC: Normal S1 and S2 with a loud systolic murmur heard throughout the precordium. ABDOMEN: Bowel sounds are present. Mildly tender. Fluid wave is noted. No rebound or guarding. Hepatomegaly is noted. EXTREMITIES: With mild edema. No splinter hemorrhages noted over the nail beds. NEUROLOGIC EXAM: The patient is mildly somnolent but easily arousable. Her cranial nerves are intact. She has equal strength throughout and does have asterixis on examine. DIAGNOSTIC STUDIES LABORATORY: Admission labs - hematocrit is 28.1, down from 30.3. White blood count 3.9, platelet count is 25 which is stable. INR is 1.9, stable. PTT is 41. SMA-12 - glucose is 120, sodium 133, potassium 2.8, chloride is 96, CO2 32, calcium 7.8, protein 5.9, albumin is 2.1, bilirubin is 4.4, mostly indirect. Alk. phos. is 178. Ammonia level is 146. Lactic acid is Unit #: [id number] #: [id number] Patient: CARIN HEMPHILL normal. ASSESSMENT 1. Intractable nausea and vomiting. Patient did see spots of blood in her emesis. 2. Hypokalemia. 3. Autoimmune hepatitis with cirrhosis. Plans are to see the transplant team in the near future at [facility]. 4. Chronic thrombocytopenia secondary to cirrhosis and splenomegaly. 5. History of ESBL, MRSA, C. difficile colitis and beta hemolytic Strep. 6. Hepatitis encephalopathy. PLANS 1. Replace potassium, check magnesium. 2. Lactulose and Xifaxan. 3. Gentle IV fluids and hold Bumex until able to tolerate diet. 4. Obtain chest x-ray, obtain urinalysis and give one dose of Rocephin. 5. SCDs for DVT prophylaxis. 6. Reglan, p.r.n. Phenergan and proton pump inhibitor. 7. Recheck labs at noon and will obtain a type and screen. Obviously, if patient has further bleeding, will transfuse platelets. 8. GI to see in consultation. 9. SCDs for DVT prophylaxis. Dictated by Sherin Mckinney M.D. AML/df TD: 01/21/2017 05:23 JOB #: [id number] HISTORY AND PHYSICAL Page 1 of 1 X Sherin Mckinney MD X HISTORY AND PHYSICAL
--- NOTE | ~2017-01-21 | CR72 ---
[facility] A Service of [facility] RADIOLOGY TEXT RESULTS PATIENT: CARIN HEMPHILL LOCATION: [facility] : [birth year] UNIT #: [id number] AGE: [address]: Luiz Thompson MD SEX: F ORDER DR: [id number] [facility] [address] [facility]. [place], [place] [address] [id number] I MR#: [id number] Acc #: [id number] NAME: CARIN HEMPHILL. : 1985 SEX: F STUDY DATE/TIME: 01/21/2017 14:10 UNIT: [facility] ROOM: [facility] STUDY DESCRIPTION: CR Chest Single View Portable Attending Physician: Luiz Thompson M.D. Ordering Physician: Luiz Thompson M.D. Primary Care Physician: Daniel Dietrich M.D. MEDICAL IMAGING REPORT This report is preliminary unless electronic signature is present EXAMINATION AP portable chest. DATE 01/21/2017 HISTORY Triple-lumen catheter placement, with nausea, vomiting, and shortness of breath today. COMPARISON PA and lateral chest radiograph, 01/03/2017. FINDINGS Moderate sized left pleural effusion has a similar appearance to the 01/03/2017 exam, with left basilar atelectasis or infiltrate. Heart size appears upper limits normal. Left neck approach central line tip extends to the upper right atrial level. No pneumothorax is visible. IMPRESSION 1. Left neck approach central line tip to the upper right atrial level. No visible pneumothorax. 2. Moderate left, trace right pleural effusions with bibasilar atelectasis or infiltrates. STAT * RESULT Dictated by... Le Arechiga M.D. THIS IS AN ELECTRONICALLY VERIFIED REPORT [facility] A Service of [facility] RADIOLOGY TEXT RESULTS PATIENT: CARIN HEMPHILL LOCATION: [facility] : [birth year] UNIT #: [id number] AGE: [address]: Luiz Thompson MD SEX: F ORDER DR: Le Arechiga M.D. at 01/22/2017 1:54 PM NGOC/dodie TD: 01/21/2017 16:35 JOB #: [id number] MEDICAL IMAGING REPORT Page 1 of 1 COPY
--- NOTE | ~2017-01-21 | OR ---
Unit #: [id number] #: [id number] Patient: CARIN HEMPHILL [id number] [address] [address] [id number] I MR#: [id number] NAME: CARIN HEMPHILL ROOM: [facility] Date of Procedure: 01/21/2017 Admission Date: 01/21/2017 Surgeon: Chrissy Carroll M.D. : 1985 Attending Physician: Luiz Thompson M.D. Primary Care Physician: Daniel Dietrich M.D. PROCEDURE OPERATIVE NOTE PREOPERATIVE DIAGNOSIS Hepatic encephalopathy and ascites. POSTOPERATIVE DIAGNOSIS Hepatic encephalopathy and ascites. PROCEDURE PERFORMED Diagnostic and therapeutic paracentesis with ultrasound guidance. ANESTHESIA Lidocaine topical 1%. COMPLICATIONS None. PROCEDURE An informed consent was obtained from the patient's mother after explaining the benefits and risks of this procedure. The patient was prepped and positioned appropriately. She was cleaned with chlorhexidine and then with the guidance of ultrasound the needle was inserted in the left lower quadrant until ascites fluid was obtained, then the catheter was inserted over the needle and the needle was removed. The catheter was hooked to suction and 3.5 liters were obtained. The fluid looked orange and kenneth in color. The catheter was removed and dressing was applied. The patient tolerated her procedure well with no immediate complications. Dictated by... Chrissy Carroll M.D. EA/gold TD: 01/21/2017 14:58 JOB #: [id number] Unit #: [id number] #: [id number] Patient: CARIN HEMPHILL PROCEDURE OPERATIVE NOTE Page 1 of 1 X CHRISSY DEE MD PROCEDURE OPERATIVE NOTE
--- NOTE | ~2017-01-21 | CO ---
Unit #: [id number] #: [id number] Patient: CARIN HEMPHILL [id number] [place], [place] [address] [id number] I MR#: [id number] NAME: CARIN HEMHPILL ROOM: [facility] Age: 31 Sex: F Admission Date: 01/21/2017 : 1985 Attending Physician: Luiz Thompson M.D. Primary Care Physician: Daniel Dietrich M.D. Consultation Date: 01/21/2017 CONSULTATION REPORT REASON FOR EVAL Pancytopenia, please evaluate. HISTORY OF PRESENT ILLNESS This is a 31-year-old unfortunate lady whom we saw in December of this year with similar condition of pancytopenia, has a very long history of autoimmune hepatitis resulting in cirrhosis, hypersplenism, GI bleeding and chronic pancytopenia. Today on questioning she feels better after 5 L of fluid was removed from her abdomen giving her some relief and she is very drowsy. PAST MEDICAL HISTORY Her past history was mainly obtained from the chart; repeated admissions for anemia, pancytopenia and cirrhosis and ascites. Past history also remarkable for noncompliance when she was evaluated by the transplant physicians and I had requested that she go back last time. I am not sure she has gone there yet. FAMILY HISTORY Family history is positive for cirrhosis, negative for autoimmune diseases. SOCIAL HISTORY She is disabled, lives with mother, currently a nonsmoker, used to smoke, no alcohol usage. CHRONIC MEDICATIONS Phenergan, magnesium, Seroquel, Bumex, Nadolol, OxyContin, lactulose, Xifaxan. Please see the chart if you need details. ALLERGIES She has no known allergies. REVIEW OF SYSTEMS Mainly remarkable for tiredness, increased discomfort, abdominal girth increase and inability to eat well and ambulate well due to the ascites. Otherwise six or eight systems are within normal limits. PHYSICAL EXAMINATION GENERAL APPEARANCE: On exam she is very drowsy. HEENT: When she opens her eyes it looks like she may be a little jaundiced. NECK: No palpable nodes. LUNGS: Crackles. No rales. Unit #: [id number] #: [id number] Patient: CARIN HEMPHILL CARDIOVASCULAR: Distant S1 and S2. ABDOMEN: Still has some ascites but is much improved. There is a mild degree of diffuse tenderness. PELVIC EXAM: Not performed. BREAST EXAM: Not performed. NEUROLOGIC: A detailed neurologic exam was not performed. DIAGNOSTIC STUDIES LABORATORY: Glucose 115, BUN 5, creatinine 0.6, sodium 136, potassium 3.3, chloride 100, CO2 31, anion gap of 1, bilirubin total 4.4 and direct bilirubin 1.3, indirect 3.1, alkaline phosphatase 178, ALT 28 and AST 39, ammonia is 146. Previous admission iron 98, TIBC 112, saturation 88%, B12 1405 and folic acid 19, ferritin of 411. IMPRESSION This 31-year-old lady with at least 15-year history of progressive cirrhosis due to autoimmune hepatitis has not been able to fit with the transplant team so far, presents with hepatic encephalopathy, pancytopenia, significant ascites, status post 5 L of ascitic fluid removal so at this point all this was discussed and only help we can offer at this point would be low-dose Granix at 300 mcg and Procrit 20,000 units subcu and a short course of Solu-Medrol at 40 mg IV q.6 h. Let us see if her bone marrow responds, then will continue the above to give her some relief. In the meantime there is very little we can do to change her cirrhosis and hypersplenism. Dictated by... Dave Barnett/darryl TD: 01/21/2017 22:17 JOB #: [id number] CONSULTATION REPORT Page 1 of 1 X Duc Drew MD X CONSULTATION REPORT
--- NOTE | ~2017-01-21 | DS ---
Unit #: [id number] #: [id number] Patient: CARIN HEMPHILL [id number] [address] [place], [place] [address] [id number] MR#: [id number] NAME: CARIN HEMPHILL. ROOM: 468 Age: 31 Sex: F Admission Date: 01/21/2017 : 1985 Discharge Date: 01/24/2017 Attending Physician: Luiz Thompson M.D. Primary Care Physician: Daniel Dietrich M.D. DISCHARGE SUMMARY REASON FOR ADMISSION Intractable nausea and vomiting, increased abdominal pain. HISTORY OF PRESENT ILLNESS/HOSPITAL COURSE The patient is a 31-year-old, very unfortunate female who was diagnosed with autoimmune hepatitis at age 14, which has progressed to cirrhosis with portal hypertension. She has been admitted secondary to intractable nausea and vomiting. She has been off and on admitted to our particular hospital with similar issues, including hepatic encephalopathy, nausea, vomiting, as well as pain-related issues. She was, thus, admitted with above. Subsequently she was placed initially on telemetry floor. However, secondary to hepatic encephalopathy, her mental status, as well as airway appeared to be compromised and, therefore, concern for possible underlying respiratory distress, the patient was transferred to ICU for ongoing care. Consultation was subsequently placed to Dr. Williamson and associates. The patient underwent paracentesis in the ICU, as well as central line placement. We then subsequently placed a Dobbhoff tube. During the time of Dobbhoff tube placement, the patient awoke suddenly and we began given her lactulose at increased dosage. Her ammonia level subsequently began to decrease. Her mental status improved. She was able to tolerate p.o. medications without difficulty. She was subsequently transferred out of ICU, placed on med/surg floor. She has been maintained on her routine medications with the exception of lactulose being increased to every 4 hours. She has, otherwise, tolerated her diet well. She is on currently 1,200 mL fluid restriction. I did, once again, have a discussion with the patient in regard to overall long-term prognosis and have, once again, recommended Hospice care for her. She has been seen in the past by [facility] GI team and, unfortunately, was felt not to be a transplant candidate. She is currently being followed at [facility] under the transplant team, but per the patient's verbal discussion with me, she states that she is trying to follow up with them, but they have stated to her that she is no longer a transplant candidate, but I do not have verified details. At this point in time, the patient will be discharged home. Overall, her prognosis is poor. Hospice consultation has been, once again, recommended, but she has refused. FINAL DISCHARGE DIAGNOSES Unit #: [id number] #: [id number] Patient: CARIN HEMPHILL 1. Intractable nausea and vomiting, now resolved. 2. Endstage cirrhosis. 3. Autoimmune hepatitis. 4. Portal hypertension. 5. Varices of the esophagus. 6. Abdominal wall varices. 7. Splenomegaly. 8. Chronic thrombocytopenia. Baseline platelets between 15 and 25. 9. Chronic pancytopenia. 10. Prior hospital admission secondary to gram-negative sepsis. 11. Prior history of extended spectrum beta-lactamase bacteremia, clostridium difficile colitis, methicillin-resistant Staphylococcus aureus bacteremia. 12. Prior history of nonischemic cardiomyopathy with ejection fraction of approximately 45% to 50%. 13. Failure to thrive/ransrdek-xd-bvbbza protein malnutrition, likely secondary to cirrhosis. 14. Recurrent hospital admissions secondary to hepatic encephalopathy. 15. Drug/narcotic-seeking behavior. 16. Prior history of tobacco abuse. 17. Prior history of marijuana use. FINAL DISCHARGE MEDICATIONS 1. Amiodarone 10 mg p.o. q.8. 2. Lactulose 20 grams p.o. q.4. 3. Mag-Ox 400 mg p.o. b.i.d. 4. Xifaxan 550 mg p.o. b.i.d. 5. Phenergan 25 mg p.o. q.4 p.r.n. 6. Atarax 25 mg p.o. daily p.r.n. 7. Nadolol 40 mg p.o. daily. 8. Seroquel 50 mg p.o. q.h.s. 9. Bumex 2 mg p.o. daily. 10. Eplerenone 25 mg 2 tablets p.o. daily. 11. Zinc sulfate 220 mg p.o. daily. 12. Multivitamin daily. 13. Roxicodone 20 mg p.o. t.i.d. 14. Protonix 40 mg p.o. b.i.d. 15. Os-Nehemiah 500 p.o. b.i.d. 16. Potassium chloride 80 mEq p.o. b.i.d. 17. B complex daily. 18. Calcitriol 0.25 mcg p.o. daily. DISCHARGE CONDITION Stable. DISCHARGE DISPOSITION Home. PROGNOSIS Poor. LIFE EXPECTANCY Likely less than 3-6 months. Dictated by... Luiz Thompson M.D. Unit #: [id number] #: [id number] Patient: CARIN HEMPHILL DARCY/otis TD: 01/26/2017 10:20 JOB #: [id number] DISCHARGE SUMMARY Page 1 of 1 X Luiz Thompson MD X DISCHARGE SUMMARY
[2017-01-21 02:59] LABS: BASOPHIL% 0.2 % (0-2.5); EOSINOPHIL# 0.1 X10e3 (0-0.7); EOSINOPHIL% 2.4 % (0.0-7.0); HEMATOCRIT 28.1 % (35.0-45.0); HEMOGLOBIN 9.7 gm/dL (12.0-16.0); LYMPHOCYTE# 0.5 X10e3 (1.0-3.5); LYMPHOCYTE% 12.8 % (17.0-45.0); MEAN CELL VOLUME 96.2 FL (83-96); MEAN CORPUSCULAR HEMOGLOBIN 33.1 PG (28-34); MEAN CORPUSCULAR HGB CONC 34.4 g/dL (30-36); MEAN PLATELET VOLUME 9.6 FL (6.5-11.5); MONOCYTE# 0.3 X10e3 (0-1.0); MONOCYTE% 6.6 % (3.0-12.0); RED BLOOD COUNT 2.92 X10e (3.90-5.30); RED CELL DISTRIBUTION WIDTH 16.8 % (11.0-15.5); WHITE BLOOD COUNT 3.9 X10e3 (4.0-10.5)
[2017-01-21 03:18] LABS: ALBUMIN SERUM 2.1 g/dL (3.5-5.0); BILIRUBIN, DIRECT 1.3 mg/dL (0.0-0.2); BILIRUBIN,INDIRECT 3.1 mg/dL (0.0-0.9); BILIRUBIN,TOTAL 4.4 mg/dL (0.2-2.0); BUN/CREATININE RATIO 8.33; CALCIUM SERUM 7.8 mg/dL (8.4-10.2); CREATININE SERUM 0.6 mg/dL (0.6-1.4); DIFF IND YES; GLOM FILT RATE Estimated 142.8 mL/min (>60); PLATELET COUNT 25 X10e3 (140-420); PROTEIN TOTAL SERUM 5.9 g/dL (6.0-8.3)
[2017-01-21 03:20] LABS: POTASSIUM 2.8 mmol/L (3.5-5.1)
[2017-01-21 03:23] LABS: ANISOCYTOSIS MOD; PLATELET ESTIMATE DECREASED (NORMAL)
[2017-01-21 03:24] LABS: HYPOCHROMIA SL; TEAR DROP CELLS PRESENT
[2017-01-21 03:25] LABS: ACANTHOCYTES PRESENT; INR 1.9; PARTIAL THROMBOPLASTIN TIME 40.9 SECONDS (23.5-31.3); PROTHROMBIN TIME (PATIENT) 20.4 SECONDS (10.0-11.7)
[2017-01-21 12:54] LABS: HEMATOCRIT 23.9 % (35.0-45.0); HEMOGLOBIN 8.4 gm/dL (12.0-16.0); MEAN CELL VOLUME 95.8 FL (83-96); MEAN CORPUSCULAR HEMOGLOBIN 33.7 PG (28-34); MEAN CORPUSCULAR HGB CONC 35.2 g/dL (30-36); MEAN PLATELET VOLUME 9.1 FL (6.5-11.5); RED BLOOD COUNT 2.5 X10e (3.90-5.30); RED CELL DISTRIBUTION WIDTH 16.9 % (11.0-15.5); WHITE BLOOD COUNT 1.9 X10e3 (4.0-10.5)
[2017-01-21 13:18] LABS: CALCIUM SERUM 7.7 mg/dL (8.4-10.2); CARBON DIOXIDE 31 mmol/L (22-31); CHLORIDE 100 mmol/L (100-111); CREATININE SERUM 0.6 mg/dL (0.6-1.4); GLOM FILT RATE Estimated 142.8 mL/min (>60); GLUCOSE FASTING 115 mg/dL (70-110); MAGNESIUM 1.7 mg/dL (1.6-3.0); POTASSIUM 3.3 mmol/L (3.5-5.1); SODIUM 136 mmol/L (135-145)
[2017-01-21 13:19] LABS: BLOOD UREA NITROGEN <5 mg/dL (9-23); BUN/CREATININE RATIO 8.33
[2017-01-21] MEDS ORDERED: UNABLE TO OBTAIN (14:14)
[2017-01-21 15:42] LABS: BF TOTAL NUCLEATED CELL COUNT 54 CMM (0-100); BODY FLUID APPEARANCE HAZY; BODY FLUID RBC <10000 CMM; BODY FLUID SOURCE ASCITES
[2017-01-22 05:36] LABS: BASOPHIL% 0.1 % (0-2.5); HEMATOCRIT 24.6 % (35.0-45.0); HEMOGLOBIN 8.8 gm/dL (12.0-16.0); LYMPHOCYTE# 0.2 X10e3 (1.0-3.5); MEAN CELL VOLUME 95.9 FL (83-96); MEAN CORPUSCULAR HEMOGLOBIN 34.1 PG (28-34); MEAN CORPUSCULAR HGB CONC 35.6 g/dL (30-36); MEAN PLATELET VOLUME 9.3 FL (6.5-11.5); MONOCYTE# 0.2 X10e3 (0-1.0); MONOCYTE% 2.5 % (3.0-12.0); NEUTROPHIL# 7.1 X10e3 (1.5-7.1); NEUTROPHIL% 94.4 % (40-75); RED BLOOD COUNT 2.57 X10e (3.90-5.30); RED CELL DISTRIBUTION WIDTH 16.9 % (11.0-15.5)
[2017-01-22 05:50] LABS: DIFF IND YES; PLATELET COUNT 17 X10e3 (140-420); WHITE BLOOD COUNT 7.6 X10e3 (4.0-10.5)
[2017-01-22 07:15] LABS: ALBUMIN SERUM 1.8 g/dL (3.5-5.0); ALKALINE PHOSPHATASE 131 U/L (32-92); ALT (SGPT) 23 U/L (10-40); AST (SGOT) 32 U/L (10-42); BILIRUBIN,TOTAL 4.2 mg/dL (0.2-2.0); CALCIUM SERUM 7.7 mg/dL (8.4-10.2); CARBON DIOXIDE 26 mmol/L (22-31); CHLORIDE 100 mmol/L (100-111); CREATININE SERUM 0.5 mg/dL (0.6-1.4); GLOM FILT RATE Estimated 151.6 mL/min (>60); GLUCOSE FASTING 274 mg/dL (70-110); POTASSIUM 3.4 mmol/L (3.5-5.1); SODIUM 131 mmol/L (135-145)
[2017-01-22 07:20] LABS: ANISOCYTOSIS SL; PLATELET ESTIMATE DECREASED (NORMAL)
[2017-01-22 07:22] LABS: HYPOCHROMIA SL
[2017-01-22 07:23] LABS: BLOOD UREA NITROGEN <5 mg/dL (9-23)
[2017-01-23 03:26] LABS: BASOPHIL% 0.1 % (0-2.5); HEMATOCRIT 26.4 % (35.0-45.0); HEMOGLOBIN 9.2 gm/dL (12.0-16.0); LYMPHOCYTE# 0.5 X10e3 (1.0-3.5); LYMPHOCYTE% 4.3 % (17.0-45.0); MEAN CELL VOLUME 96.1 FL (83-96); MEAN CORPUSCULAR HEMOGLOBIN 33.5 PG (28-34); MEAN CORPUSCULAR HGB CONC 34.8 g/dL (30-36); MEAN PLATELET VOLUME 9.9 FL (6.5-11.5); MONOCYTE# 0.7 X10e3 (0-1.0); MONOCYTE% 5.6 % (3.0-12.0); NEUTROPHIL# 11.5 X10e3 (1.5-7.1); RED BLOOD COUNT 2.74 X10e (3.90-5.30); RED CELL DISTRIBUTION WIDTH 16.9 % (11.0-15.5)
[2017-01-23 03:35] LABS: WHITE BLOOD COUNT 12.8 X10e3 (4.0-10.5)
[2017-01-23 03:40] LABS: PLATELET COUNT 25 X10e3 (140-420)
[2017-01-23 03:41] LABS: DIFF IND NO
[2017-01-23 03:47] LABS: ALBUMIN SERUM 1.8 g/dL (3.5-5.0); ALKALINE PHOSPHATASE 147 U/L (32-92); ALT (SGPT) 24 U/L (10-40); AST (SGOT) 27 U/L (10-42); BILIRUBIN,TOTAL 3.1 mg/dL (0.2-2.0); BLOOD UREA NITROGEN <5 mg/dL (9-23); BUN/CREATININE RATIO 7.14; CALCIUM SERUM 7.9 mg/dL (8.4-10.2); CARBON DIOXIDE 25 mmol/L (22-31); CHLORIDE 100 mmol/L (100-111); CREATININE SERUM 0.7 mg/dL (0.6-1.4); GLOM FILT RATE Estimated 135.7 mL/min (>60); GLUCOSE FASTING 187 mg/dL (70-110); POTASSIUM 3.4 mmol/L (3.5-5.1); PROTEIN TOTAL SERUM 5.1 g/dL (6.0-8.3); SODIUM 130 mmol/L (135-145)
[2017-01-23 19:10] LABS: URINE APPEARANCE CLOUDY; URINE BLOOD TRACE (NEG); URINE COLOR DK YELLOW; URINE GLUCOSE NEG (NEG); URINE KETONE NEG (NEG); URINE LEUKOCYTE ESTERASE 1+ (NEG); URINE NITRATE NEG (NEG); URINE PROTEIN NEG (NEG); URINE SPECIFIC GRAVITY 1.017 (1.003-1.035); URINE UROBILINOGEN 0.2 MG/DL (NEG)
[2017-01-23 19:12] LABS: URINE BACTERIA AUWI NEG (NEGATIVE); URINE SQUAMOUS EPITHELIAL CELL MOD /[HPF]
[2017-01-23 19:19] LABS: URINE BILIRUBIN POS (NEG)
[2017-01-23 19:20] LABS: URINE CRYSTALS CALCIUM OXALATE /[HPF]
[2017-01-24 03:33] LABS: BASOPHIL% 0.2 % (0-2.5); EOSINOPHIL# 0.1 X10e3 (0-0.7); EOSINOPHIL% 1.5 % (0.0-7.0); HEMATOCRIT 25.3 % (35.0-45.0); HEMOGLOBIN 8.9 gm/dL (12.0-16.0); LYMPHOCYTE# 0.9 X10e3 (1.0-3.5); LYMPHOCYTE% 12.1 % (17.0-45.0); MEAN CELL VOLUME 97.4 FL (83-96); MEAN CORPUSCULAR HEMOGLOBIN 34.2 PG (28-34); MEAN CORPUSCULAR HGB CONC 35.1 g/dL (30-36); MEAN PLATELET VOLUME 10.6 FL (6.5-11.5); MONOCYTE# 0.6 X10e3 (0-1.0); MONOCYTE% 8.7 % (3.0-12.0); NEUTROPHIL# 5.5 X10e3 (1.5-7.1); NEUTROPHIL% 77.5 % (40-75); RED CELL DISTRIBUTION WIDTH 17.2 % (11.0-15.5); WHITE BLOOD COUNT 7.2 X10e3 (4.0-10.5)
[2017-01-24 03:35] LABS: PLATELET COUNT 29 X10e3 (140-420)
[2017-01-24 03:36] LABS: DIFF IND NO
[2017-01-24 04:17] LABS: ALBUMIN SERUM 1.7 g/dL (3.5-5.0); BILIRUBIN,TOTAL 2.8 mg/dL (0.2-2.0); BUN/CREATININE RATIO 8.33; CREATININE SERUM 0.6 mg/dL (0.6-1.4); GLOM FILT RATE Estimated 142.8 mL/min (>60); POTASSIUM 3.1 mmol/L (3.5-5.1); PROTEIN TOTAL SERUM 4.9 g/dL (6.0-8.3)
[2017-01-24] MEDS ORDERED: MULTIVITAMINS1 EAC3 PO (10:52)
[2017-01-24] MEDS ORDERED: FOLIC ACID1 MG PO (10:54)
== END 2017-01-24 11:56 | disposition home health service (06) | DRG 441 ==
LOC: CED 00:46 → CEDOF 05:00 → CED 05:11 → CEDOF 07:45 → C3A PCU 09:27 → CEDOF 09:27 → C3A PCU 11:57 → CICCU3 11:57 → C4C 01-22 17:03
PROVIDERS: Emergency Medicine; Family Medicine; Internal Medicine; Internal Medicine Medical Oncology; Internal Medicine Pulmonary Disease
PROC: 0W9G3ZZ Drainage of Peritoneal Cavity, Percutaneous Approach (ICD-10-PCS; principal; 2017-01-21)
PROC: 05HN33Z Insertion of Infusion Device into Left Internal Jugular Vein, Percutaneous Approach (ICD-10-PCS; 2017-01-21)
PROC: B544ZZA Ultrasonography of Left Jugular Veins, Guidance (ICD-10-PCS; 2017-01-21)
DX: K72.90 Hepatic failure, unspecified without coma (principal); E43 Unspecified severe protein-calorie malnutrition; D61.818 Other pancytopenia; R18.8 Other ascites; I85.10 Secondary esophageal varices without bleeding; E87.1 Hypo-osmolality and hyponatremia; K76.6 Portal hypertension; Z68.1 Body mass index [BMI] 19.9 or less, adult; K75.4 Autoimmune hepatitis; K74.60 Unspecified cirrhosis of liver; I86.8 Varicose veins of other specified sites; R16.1 Splenomegaly, not elsewhere classified; D69.6 Thrombocytopenia, unspecified; R62.7 Adult failure to thrive; Z76.5 Malingerer [conscious simulation]; E87.6 Hypokalemia; D72.819 Decreased white blood cell count, unspecified; D64.9 Anemia, unspecified; Z87.891 Personal history of nicotine dependence; Z88.6 Allergy status to analgesic agent; Z88.8 Allergy status to other drugs, medicaments and biological substances; Z82.49 Family history of ischemic heart disease and other diseases of the circulatory system; Z83.3 Family history of diabetes mellitus; Z80.42 Family history of malignant neoplasm of prostate
CPT/HCPCS: 36415; 71010; 80048; 80053; 80076; 81003; 82042; 82140; 83605; 83615; 83690; 83735; 84157; 84703; 85025; 85027; 85044; 85610; 85730; 86850; 86885; 86900; 86901; 86905; 86922; 87070; 87086; 87205; 88108; 89051; 96374; 96375; 99285; C9113; J0696; J0885; J1170; J1447; J2550; J2765; J2920

== ENCOUNTER 2017-01-27 21:27 | Emergency (ER) | payer OTHER ==
[~2017-01-27 21:27] MED LIST changes: +FOLIC ACID1 MG PO; +MULTIVITAMINS1 EAC3 PO; +UNABLE TO OBTAIN
== END 2017-01-27 21:49 | disposition left against medical advice (07) ==
LOC: CED 21:27
DX: Z53.21 Procedure and treatment not carried out due to patient leaving prior to being seen by health care provider (principal)

== ENCOUNTER 2017-01-29 00:50 | Inpatient (IN) | payer OTHER ==
[~2017-01-29] VITALS: Ht 188 cm; Wt 69.4 kg
--- NOTE | ~2017-01-29 | HP ---
Unit #: [id number] #: [id number] Patient: CARIN HEMPHILL [id number] [address] [address] [id number] I MR#: [id number] NAME: CARIN HEMPHILL. ROOM: [facility] Age: 31 Sex: F Admission Date: 01/29/2017 : 1985 Attending Physician: Luiz Tohmpson M.D. Primary Care Physician: Daniel Dietrich M.D. HISTORY AND PHYSICAL REASON FOR ADMISSION Intractable nausea and vomiting, possible blood noted in emesis. HISTORY OF PRESENT ILLNESS The patient is a 31-year-old female with a prior history of autoimmune hepatitis, now with endstage cirrhosis, resultant numerous hospital admissions secondary to ascites, portal hypertension as well as varices of the esophagus. The patient presents with intractable nausea and vomiting. She was recently discharged from our hospital 01/24/2017 for similar symptoms. Through that hospital course she did have significant mental status changes and was placed in the ICU and through course underwent paracentesis as well as significant increase of her lactulose. She showed mental status improvement and eventually was discharged home. She said she went home for several days. She began developing acute abdominal pain and/or distension, as well as intractable nausea and vomiting. She also complained of blood present within her vomit itself. Initial laboratory studies in the emergency room showed a hemoglobin of 11.1, platelet count 41. Her usual baseline platelets are between 20 to 30. Her BMP showed a potassium of 3.1, alkaline phosphatase 293, total bilirubin 4.9, albumin 2.1, ammonia level 99. PAST MEDICAL HISTORY 1. History of autoimmune hepatitis since age 14. 2. Endstage cirrhosis. 3. Portal hypertension. 4. Varices of the esophagus. 5. Varices of the abdominal wall. 6. Chronic pancytopenia. 7. Thrombocytopenia. 8. Recurrent ascites. 9. Prior history of ESBL bacteremia. 10. Prior history of MRSA infection. 11. Prior history of c-difficile colitis. 12. Nonischemic cardiomyopathy. Ejection fraction of 45%-50%. 13. Prior history of migraine headaches. 14. Substance abuse history. 15. Tobacco abuse history. 16. Narcotic dependence. SOCIAL HISTORY Resides at home. She states that at the present time she does not use any illicit drugs. No tobacco. No alcohol per patient. She lives with her Unit #: [id number] #: [id number] Patient: CARIN HEMPHILL mother. FAMILY HISTORY Hypertension, diabetes, prostate cancer. ALLERGIES Tylenol, codeine, ELOY inhibitors, aspirin, Aldactone, Zofran. However, she states the Zofran does not work for her and is not really an allergy. CURRENT MEDICATIONS Unchanged from previous discharge, including 1. Phenergan. 2. Rocalcitrol 3. Inspra. 4. Lactulose. 5. Xifaxan. 6. Protamine. 7. Nadolol. 8. Bumex. 9. Calcium. 10. Atarax. 11. Mag-Ox. 12. Protonix. 13. Potassium. 14. Seroquel. 15. Zinc. 16. Oxycodone. REVIEW OF SYSTEMS Please see history of present illness. Twelve points otherwise negative except for that stated in history of present illness. PHYSICAL EXAMINATION GENERAL: The patient is a frail 31-year-old, sick-appearing female in no acute distress. VITALS: Temperature 98.1, pulse 96, respiratory rate 16, blood pressure 128/83. HEENT: Atraumatic, normocephalic. NECK: Supple. LUNGS: Diminished. HEART: S1 and S2, without murmur. ABDOMEN: Distension noted. Diffuse tenderness noted. EXTREMITIES: Lower extremities, thin lower extremities noted along with muscle wasting noted. No calf tenderness. NEUROLOGIC: The patient is alert and oriented times three currently. DIAGNOSTIC STUDIES LABORATORY: Please see above. ASSESSMENT 1. Intractable nausea and vomiting. 2. Questionable blood present in emesis. 3. Longstanding history of chronic pancytopenia. 4. Autoimmune hepatitis. 5. Endstage cirrhosis. 6. Portal hypertension. 7. Longstanding history of varices of the esophagus. 8. Thrombocytopenia history. Unit #: [id number] #: [id number] Patient: CARIN HEMPHILL 9. Recurrent paracentesis secondary to ascites. PLAN Admission medical surgical floor. Routine laboratory studies. Consultation is placed to Dr. Hernandez of gastroenterology services. The patient has seen Dr. Lala in the past. However, Dr. Lala has stated that there is no further medical management as per his standpoint. In fact, her blood counts at the present time appear to be at an all-time high. She usually has a baseline hemoglobin between 8 and 9. Certainly an element of dehydration may be contributing. Her bilirubin level has also been mildly elevated. We will obtain a second opinion from Dr. Hernandez in regard to her overall level of care. I discussed extensively with her in the past secondary to recurrent hospital admissions about her followup at either [facility] and/or [place] in regard to possible transplant candidate. She has been refused by [facility]. I believe she has been refused by [facility] as well. She states that she is currently seeking a second opinion from [facility]. Overall her prognosis is poor. Recommendation has been made to her in the past for Hospice consideration, which she has refused. Will await input from Dr. Hernandez and then plan further disposition. If not upper GI endoscopy is planned, the patient may be stable for discharge home as no further medical management is possible, unfortunately, for this very ill-appearing 31-year-old female. Plans have been reviewed with the patient. She is well aware of her long-term prognosis. Dictated by Dave Cabrera/gold TD: 01/29/2017 12:40 JOB #: [id number] HISTORY AND PHYSICAL Page 1 of 1 X Luiz Thompson MD HISTORY AND PHYSICAL
--- NOTE | ~2017-01-29 | OR ---
Unit #: [id number] #: [id number] Patient: CARIN HEMPHILL [id number] [address] [place], [place] [address] [id number] I MR#: [id number] NAME: CARIN HEMPHILL. ROOM: 218 Date of Procedure: 01/29/2017 Admission Date: 01/29/2017 Surgeon: Arun Hernandez M.D. : 1985 Attending Physician: Luiz Thompson M.D. Primary Care Physician: Daniel Dietrich M.D. OPERATIVE REPORT PREOPERATIVE DIAGNOSIS Upper gastrointestinal bleed. PROCEDURE PERFORMED Upper gastrointestinal endoscopy. POSTOPERATIVE DIAGNOSES 1. The patient had grade 1 esophageal varices. There being no stigmata of recent bleed. 2. Portal hypertensive gastropathy changes in the fundic mucosa. 3. Examination was otherwise normal. No blood or blood residue was seen in the entire upper gastrointestinal tract. RECOMMENDATIONS 1. The patient will be started on high protein, 2 g sodium diet. We will also repeat her CBC and CMP in the morning. 2. After workup, the patient has realized the patient is an established patient of Dr. Latham and Dr. Lala, therefore suggest consider transferring the care to Dr. Lala for future care. SEDATION USED MAC. DESCRIPTION OF PROCEDURE Following detailed explanation of the potential risks and complications of an upper endoscopy, namely perforation, bleeding, and complication related to sedation, the patient was brought to GI lab and laid in the left lateral decubitus position. Lubricated tip of the Olympus video upper endoscope was passed through the bite block into the proximal esophagus under direct vision. The entire esophageal mucosa was examined. The patient was noted to have grade 1 esophageal varices in mid and distal esophagus. These were straight varices, being no stigmata of recent bleed. The scope was then advanced into the gastric cavity and the latter was insufflated. Mucosa of the fundus, body, and antrum was examined. Changes of portal hypertensive gastropathy were seen in the form of classic reticular appearance of the mucosa throughout the fundus and proximal body. The distal body and antrum of the stomach was normal. No blood or blood residue was seen in the entire upper gastrointestinal tract. Pylorus was intubated with visualization of the normal duodenal bulb and second and third part of the duodenum. Upon withdrawal and retroflexion; incisura, cardia, and greater curve was examined and no additional findings were noted. The scope was then withdrawn in the Unit #: [id number] #: [id number] Patient: CARIN HEMPHILL distal esophagus. Entire esophageal mucosa was examined all the way up to pharynx. No additional findings were noted. The patient tolerated the procedure without any postprocedure complications. Dictated by... Dave Maldonado/mika TD: 01/30/2017 11:37 JOB #: [id number] OPERATIVE REPORT Page 1 of 1 X Arun Hernandez MD X PROCEDURE OPERATIVE NOTE
--- NOTE | ~2017-01-29 | DS ---
Unit #: [id number] #: [id number] Patient: CARIN HEMPHILL [id number] [address] [place], [place] [address] [id number] MR#: [id number] NAME: CARIN HEMPHILL. ROOM: 218 Age: 31 Sex: F Admission Date: 01/29/2017 : 1985 Discharge Date: 01/31/2017 Attending Physician: Luiz Thompson M.D. Primary Care Physician: Daniel Dietrich M.D. DISCHARGE SUMMARY REASON FOR ADMISSION Intractable nausea, vomiting. HISTORY OF PRESENT ILLNESS Patient is a very unfortunate 31-year-old -[place] female, underlying history of autoimmune hepatitis now with end-stage cirrhosis. Recurrent hospital admissions secondary to similar circumstance including portal hypertension, intractable nausea/vomiting, as well as, thrombocytopenia/pancytopenia related issues. She was recently discharged from the hospital several days prior to this particular admission. She was admitted secondary to intractable nausea, vomiting. Through hospital course initially she was placed on telemetry floor, subsequently transferred to med/surg floor. She was placed on routine medications. Symptom management was achieved with IV medications including Phenergan as well as Reglan. She is now currently tolerating diet well without difficulty. We did place consultation to Dr. Hernandez of gastroenterology services. The patient ultimately underwent upper GI endoscopy through this hospital course which did show grade 1 esophageal varices, portal hypertensive gastropathy. Changes were noted in the gastric mucosa. There was no occult or acute bleeding which was noted. Today, patient is otherwise tolerating diet well without difficulty. She currently is alert and oriented x3, although typically her baseline is alert and oriented x1 secondary to hepatic encephalopathy. At time of discharge, her BMP shows a creatinine of 0.5, sodium 132, potassium 5.4. Platelets are 27,000, hemoglobin 9.4, white count 9.9. All results revealed routine and/or baseline for this particular patient. It is imperative moving forward that patient seek a second opinion from [facility] liver transplant team as we have exhausted all options here at our hospital as well as at [facility]. I also placed a phone call to [facility] as well for possible transfer; however, they stated they have exhausted all options as well. At this point in time, the patient's prognosis at best is guarded. If she does not receive a liver transplant and/or does not followup as detailed above at the [facility], I strongly advocated for hospice. Patient seems very reluctant to accept and therefore, she will be discharged once again home with the understanding she will followup on her own as an outpatient. Unit #: [id number] #: [id number] Patient: CARIN HEMPHILL FINAL DISCHARGE DIAGNOSES 1. Intractable nausea/vomiting on admission, now resolved. 2. End-stage cirrhosis. 3. Autoimmune hepatitis. 4. Portal hypertension. 5. Varices at the esophagus. 6. Abdominal wall varices. 7. Splenomegaly. 8. Chronic thrombocytopenia, baseline platelets between 15,000 and 25,000. 9. Chronic pancytopenia. 10. Recurrent hospital admission secondary to gram-negative sepsis, Clostridium difficile colitis, methicillin-resistant Staphylococcus aureus bacteremia. 11. Nonischemic cardiomyopathy, ejection fraction 45% to 50%. 12. Buecsdwi-ly-lugewe protein/caloric malnutrition likely secondary to chronic medical conditions. 13. Prior history of tobacco abuse. 14. Prior history of marijuana use. DISCHARGE CONDITION Stable. DISCHARGE DISPOSITION Home. DISCHARGE MEDICATIONS Final discharge home medications remain unchanged from initial medications including the followin. Protamine 10 mg p.o. q.8. 2. Lactulose 20 g p.o. q.4. 3. Mag-Ox 400 mg p.o. b.i.d. 4. Xifaxan 550 mg p.o. b.i.d. 5. Phenergan 25 mg p.o. q.4 p.r.n. 6. Seroquel 50 mg p.o. nightly. 7. Atarax 25 mg p.o. q.8 p.r.n. 8. Nadolol 40 mg p.o. daily. 9. Eplerenone 50 mg p.o. daily. 10. Zinc sulfate 220 mg p.o. daily. 11. Protonix 40 mg p.o. b.i.d. 12. Os-Nehemiah 500 Plus p.o. b.i.d. 13. Klor-Con 40 mEq p.o. daily. 14. B complex daily. 15. Calcitriol 0.25 mcg p.o. daily. 16. Oxycodone 20 mg p.o. q.8 p.r.n. #10 prescription given. Dictated by... Dave Cabrera/paolo TD: 02/02/2017 09:37 JOB #: [id number] Unit #: [id number] #: [id number] Patient: CARIN HEMPHILL DISCHARGE SUMMARY Page 1 of 1 X Luiz Thompson MD X DISCHARGE SUMMARY
--- NOTE | ~2017-01-29 | CO ---
Unit #: [id number] #: [id number] Patient: CARIN HEMPHILL [id number] [address] [address] [id number] MR#: [id number] NAME: CARIN HEMPHILL ROOM: 218 Age: 31 Sex: F Admission Date: 01/29/2017 : 1985 Attending Physician: Luiz Thompson M.D. Primary Care Physician: Daniel Dietrich M.D. Consultation Date: 01/29/2017 CONSULTATION REPORT REASON FOR CONSULTATION Upper GI bleed with hematemesis. HISTORY OF PRESENT ILLNESS Ms. Hemphill is a 31-year-old white female with alcoholic cirrhosis. The patient has been sober for the past 4 months. She has presented with history of vomiting bright red blood at home. Upon admission, she was found to have ascites and anasarca. She has a past medical history of alcoholic cirrhosis with all the attendant complications including ascites, hepatic encephalopathy, coagulopathy, thrombocytopenia, hypokalemia, and malnutrition. The patient lives at home. PAST MEDICAL HISTORY Significant for history of cirrhosis from alcohol abuse, history of autoimmune hepatitis, history of portal hypertension, esophageal varices, pancytopenia, thrombocytopenia, recurrent ascites, history of MRSA infection in the past, C diff colitis, nonischemic cardiomyopathy, prior history of migraine headaches, history of substance abuse, tobacco abuse, and narcotic dependence. SOCIAL HISTORY The patient lives at home with her mom. Does not smoke or drink alcohol at the present time. She last drank alcohol 4 months ago. FAMILY HISTORY Diabetes, prostate cancer, hypertension. MEDICATIONS At home include Phenergan, calcitriol, Inspra, lactulose, Xifaxan, protamine, nadolol, Bumex, calcium, Atarax, magnesium oxide, potassium, Protonix, Seroquel, zinc, and oxycodone. ALLERGIES She is allergic to following medicines; ELOY inhibitors, aspirin, Aldactone, Zofran, codeine, and Tylenol. REVIEW OF SYSTEMS Detailed review of organ system does not reveal any recent weight loss. No history of fever, chills, or rigors. No history of headache, seizures, chest pain, or syncope. No history of cough, expectoration, or hemoptysis. No history of dysuria, hematuria, or pyuria. No history of focal seizures or extremity weakness. PHYSICAL EXAMINATION Unit #: [id number] #: [id number] Patient: CARIN HEMPHILL GENERAL: She appears quite emaciated. Alert and oriented. VITAL SIGNS: The patient with vital signs of temperature is 98.4, pulse is 107 to 111 per minute, respiratory rate is 16, blood pressure is 127/68. She weighs 152 pounds and appears severely malnourished. HEENT: She has vpww-ah-nedbisam pallor. There being no icterus or lymphadenopathy. She does have grade 3 pitting peripheral edema. CARDIOVASCULAR: Normal heart sounds. No murmurs. LUNGS: Auscultation over the reveals normal breath sounds. Good air entry. ABDOMEN: Somewhat distended and soft. There is an underlying ascites. Liver and spleen are not palpable. Bowel sounds normal. DIAGNOSTIC STUDIES LABORATORY RESULTS: Shows an INR of 2.0. Serum chemistry shows a normal BUN and creatinine, and potassium of 3.1. Albumin is 1.7. Total bilirubin is 4.9. AST and ALT are 43 and 36 respectively. CBC shows pancytopenia with a hemoglobin of 9.5, white count is 3.2, and platelet count is 41. Her ammonia is 99. CLINICAL IMPRESSION The patient with upper gastrointestinal bleed with hematemesis underlying alcoholic and autoimmune hepatitis related to cirrhosis, ascites, hypokalemia, thrombocytopenia, coagulopathy, malnutrition, hepatic encephalopathy. An upper endoscopy will be performed shortly to look for any evidence of esophageal varices and source of upper gastrointestinal bleed. Following that, any further recommendations will be made. The pros and cons of procedure, potential risks, and complications discussed with the patient. She was reassured. Thank you for asking me to see this pleasant woman. I appreciate the consult. Dictated by... Dave Maldonado/mika TD: 01/31/2017 12:34 JOB #: [id number] CC: Dave Pandey M.D. CONSULTATION REPORT Page 1 of 1 X Arun Hernandez MD CONSULTATION REPORT
[2017-01-29 03:23] LABS: BASOPHIL% 0.3 % (0-2.5); EOSINOPHIL# 0.2 X10e3 (0-0.7); EOSINOPHIL% 3.7 % (0.0-7.0); HEMOGLOBIN 11.1 gm/dL (12.0-16.0); LYMPHOCYTE# 0.6 X10e3 (1.0-3.5); LYMPHOCYTE% 12.2 % (17.0-45.0); MEAN CELL VOLUME 97.4 FL (83-96); MEAN CORPUSCULAR HEMOGLOBIN 32.6 PG (28-34); MEAN CORPUSCULAR HGB CONC 33.5 g/dL (30-36); MEAN PLATELET VOLUME 10.1 FL (6.5-11.5); MONOCYTE# 0.6 X10e3 (0-1.0); MONOCYTE% 12.4 % (3.0-12.0); NEUTROPHIL# 3.4 X10e3 (1.5-7.1); NEUTROPHIL% 71.4 % (40-75); RED BLOOD COUNT 3.39 X10e (3.90-5.30); RED CELL DISTRIBUTION WIDTH 17.7 % (11.0-15.5); WHITE BLOOD COUNT 4.8 X10e3 (4.0-10.5)
[2017-01-29 03:27] LABS: ALBUMIN SERUM 2.1 g/dL (3.5-5.0); BILIRUBIN, DIRECT 1.5 mg/dL (0.0-0.2); BILIRUBIN,INDIRECT 3.4 mg/dL (0.0-0.9); BILIRUBIN,TOTAL 4.9 mg/dL (0.2-2.0); BUN/CREATININE RATIO 7.5; CALCIUM SERUM 7.9 mg/dL (8.4-10.2); CREATININE SERUM 0.8 mg/dL (0.6-1.4); DIFF IND YES; GLOM FILT RATE Estimated 115.6 mL/min (>60); PLATELET COUNT 41 X10e3 (140-420); POTASSIUM 3.1 mmol/L (3.5-5.1)
[2017-01-29 03:29] LABS: PARTIAL THROMBOPLASTIN TIME 47.2 SECONDS (23.5-31.3); PROTHROMBIN TIME (PATIENT) 21.3 SECONDS (10.0-11.7)
[2017-01-29 03:38] LABS: ANISOCYTOSIS MOD; HYPERSEGMENTED POLYS PRESENT; PLATELET ESTIMATE DECREASED (NORMAL); SMUDGE CELLS 3 /100
[2017-01-29 22:31] LABS: AMPHETAMINE NEG (NEG); BARBITURATES NEG (NEG); BENZODIAZEPINES POS (NEG); COCAINE NEG (NEG); MARIJUANA NEG (NEG); OPIATES POS (NEG); TRICYCLIC ANTIDEPRESSANTS NEG (NEG); U METHADONE NEG (NEG)
[2017-01-30 05:44] LABS: HEMATOCRIT 26.9 % (35.0-45.0); HEMOGLOBIN 9.5 gm/dL (12.0-16.0); MEAN CELL VOLUME 96.4 FL (83-96); MEAN CORPUSCULAR HGB CONC 35.3 g/dL (30-36); MEAN PLATELET VOLUME 9.8 FL (6.5-11.5); RED BLOOD COUNT 2.79 X10e (3.90-5.30); RED CELL DISTRIBUTION WIDTH 17.5 % (11.0-15.5); WHITE BLOOD COUNT 3.2 X10e3 (4.0-10.5)
[2017-01-30 05:57] LABS: ALBUMIN SERUM 1.7 g/dL (3.5-5.0); BILIRUBIN,TOTAL 4.7 mg/dL (0.2-2.0); CALCIUM SERUM 7.7 mg/dL (8.4-10.2); CREATININE SERUM 0.8 mg/dL (0.6-1.4); GLOM FILT RATE Estimated 115.6 mL/min (>60); POTASSIUM 4.2 mmol/L (3.5-5.1); PROTEIN TOTAL SERUM 4.9 g/dL (6.0-8.3)
[2017-01-31 07:34] LABS: BASOPHIL% 0.2 % (0-2.5); EOSINOPHIL# 0.1 X10e3 (0-0.7); EOSINOPHIL% 1.2 % (0.0-7.0); HEMATOCRIT 26.7 % (35.0-45.0); HEMOGLOBIN 9.4 gm/dL (12.0-16.0); LYMPHOCYTE# 0.8 X10e3 (1.0-3.5); LYMPHOCYTE% 8.3 % (17.0-45.0); MEAN CELL VOLUME 97.3 FL (83-96); MEAN CORPUSCULAR HEMOGLOBIN 34.2 PG (28-34); MEAN CORPUSCULAR HGB CONC 35.2 g/dL (30-36); MEAN PLATELET VOLUME 10.1 FL (6.5-11.5); MONOCYTE# 0.6 X10e3 (0-1.0); MONOCYTE% 5.8 % (3.0-12.0); NEUTROPHIL# 8.4 X10e3 (1.5-7.1); NEUTROPHIL% 84.5 % (40-75); RED BLOOD COUNT 2.74 X10e (3.90-5.30); RED CELL DISTRIBUTION WIDTH 17.2 % (11.0-15.5)
[2017-01-31 07:40] LABS: CALCIUM SERUM 8.1 mg/dL (8.4-10.2); CREATININE SERUM 0.5 mg/dL (0.6-1.4); GLOM FILT RATE Estimated 151.6 mL/min (>60); POTASSIUM 5.4 mmol/L (3.5-5.1)
[2017-01-31 07:45] LABS: WHITE BLOOD COUNT 9.9 X10e3 (4.0-10.5)
[2017-01-31 07:47] LABS: DIFF IND NO; PLATELET COUNT 27 X10e3 (140-420)
[2017-01-31] MEDS ORDERED: OXYCODONE HCL20 M1 PO (11:51)
== END 2017-01-31 12:52 | disposition home or self-care (01) | DRG 432 ==
LOC: CED 00:50 → CEDOF 04:14 → CED 04:19 → CEDOF 04:19 → C3A PCU 07:47 → CEDOF 07:47 → C2A 20:15 → C3A PCU 20:15 → C2A 01-31 12:52
PROVIDERS: Emergency Medicine; Family Medicine; Internal Medicine Infectious Disease
PROC: 0DJ08ZZ Inspection of Upper Intestinal Tract, Via Natural or Artificial Opening Endoscopic (ICD-10-PCS; principal; 2017-01-30)
DX: K70.31 Alcoholic cirrhosis of liver with ascites (principal); E43 Unspecified severe protein-calorie malnutrition; G93.40 Encephalopathy, unspecified; K92.0 Hematemesis; K76.6 Portal hypertension; I42.8 Other cardiomyopathies; D68.9 Coagulation defect, unspecified; I85.10 Secondary esophageal varices without bleeding; B37.81 Candidal esophagitis; F10.20 Alcohol dependence, uncomplicated; K31.89 Other diseases of stomach and duodenum; K75.4 Autoimmune hepatitis; D69.59 Other secondary thrombocytopenia; Z87.891 Personal history of nicotine dependence; Z83.3 Family history of diabetes mellitus; Z80.42 Family history of malignant neoplasm of prostate; Z82.49 Family history of ischemic heart disease and other diseases of the circulatory system
CPT/HCPCS: 36415; 80048; 80053; 80076; 80307; 82140; 83690; 84703; 85025; 85027; 85610; 85730; 96374; 99285; C9113; J2250; J2405; J2550

== ENCOUNTER 2017-02-07 12:30 | Inpatient (IN) | payer OTHER ==
[~2017-02-07] VITALS: Ht 188 cm; Wt 77.8 kg
--- NOTE | ~2017-02-07 | CR150 ---
[facility] A Service of [facility] & [facility] / [facility] RADIOLOGY TEXT RESULTS PATIENT: CARIN HEMPHILL LOCATION: [facility] [address] : [birth year] UNIT #: [id number] AGE: [address]: Luiz Thompson MD SEX: F ORDER DR: [id number] [facility] [address] [facility]. [place], [place] [address] [id number] MR#: [id number] Acc #: [id number] NAME: CARIN HEMPHILL : 1985 SEX: F STUDY DATE/TIME: 02/07/2017 15:14 UNIT: [id number] ROOM: 553 STUDY DESCRIPTION: CR Hip Min 2 Views Lt Attending Physician: Chadwick Alberts M.D. Ordering Physician: Pernell Figueroa D.O. Primary Care Physician: Daniel Dietrich M.D. MEDICAL IMAGING REPORT This report is preliminary unless electronic signature is present EXAM Left hip, [address] abdomen and pelvis dated July 08, 2011. INDICATION A 31-year-old female with left hip pain for 2 days. No known injury. FINDINGS Calcified density in the left pelvis is most in keeping with a benign phlebolith. There is mild degenerative change at the pubic symphysis. There is mild degenerative change at the roof of the acetabula bilaterally. Left hip is anatomically aligned. No evidence of acute fracture. There is a slight pistol family court justice shape of both femoral heads. IMPRESSION No acute fracture or dislocation of the left hip. There is suggestion of a pistol family court justice shape of both femoral heads, and there is premature sclerosis and mild osteophyte formation at the roofs of both acetabula. Clinical correlation for signs of femoral acetabular impingement is recommended. MRI may be a better test as an outpatient if the patient continues to have symptoms. Dictated by... Rafael Larkin M.D. THIS IS AN ELECTRONICALLY VERIFIED REPORT Rafael Larkin M.D. at 02/13/2017 9:42 PM ISIS/sg [facility] A Service of [facility] & [facility] / [facility] RADIOLOGY TEXT RESULTS PATIENT: CARIN HEMPHILL LOCATION: [place] [address] : [birth year] UNIT #: [id number] AGE: [address]: Luiz Thompson MD SEX: F ORDER DR: TD: 02/07/2017 18:57 JOB #: [id number] MEDICAL IMAGING REPORT Page 1 of 1 COPY
--- NOTE | ~2017-02-07 | US140 ---
[facility] A Service of [facility] RADIOLOGY TEXT RESULTS PATIENT: CARIN HEMPHILL LOCATION: [facility] : 87 UNIT #: [id number] AGE: [address]: Chadwick Alberts MD SEX: F ORDER DR: [id number] [facility] [address] [facility]. [place], [place] [address] [id number] I MR#: [id number] Acc #: [id number] NAME: CARIN HEMPHILL. : 1985 SEX: F STUDY DATE/TIME: 02/07/2017 17:07 UNIT: [facility] ROOM: [facility] STUDY DESCRIPTION: US UE Veins Unilat or Ltd Stdy Attending Physician: Chadwick Alberts M.D. Ordering Physician: Pernell Figueroa D.O. Primary Care Physician: Daniel Dietrich M.D. MEDICAL IMAGING REPORT This report is preliminary unless electronic signature is present EXAM Upper extremity ultrasound for DVT on the left, 02/07/2017. INDICATION Arm pain on the left for 5 days. PICC line placement 5 days ago. TECHNIQUE Rosen-scale, color Doppler, and spectral analysis of the left upper extremity was performed. COMPARISON There are no comparisons. FINDINGS A PICC line is present in the subclavian vein on the left. It appears to take an approach from the basilic vein. There is no evidence of DVT in the left upper extremity. IMPRESSION No DVT in the left upper extremity. Dictated by... Magan Fernandez M.D. THIS IS AN ELECTRONICALLY VERIFIED REPORT Magan Fernandez M.D. at 02/07/2017 10:46 PM ERIC/nohemy TD: 02/07/2017 21:23 JOB #: [id number] [facility] A Service [facility] RADIOLOGY TEXT RESULTS PATIENT: CARIN HEMPHILL LOCATION: [facility] : 87 UNIT #: [id number] AGE: [address]: Chadwick Alberts MD SEX: F ORDER DR: MEDICAL IMAGING REPORT Page 1 of 1 COPY
--- NOTE | ~2017-02-07 | CO ---
Unit #: [id number] #: [id number] Patient: CARIN HEMPHILL [id number] [address] [address] [id number] I MR#: [id number] NAME: CARIN HEMPHILL. ROOM: 555 Age: 31 Sex: F Admission Date: 02/07/2017 : 1985 Attending Physician: Luiz Thompson M.D. Primary Care Physician: Daniel Dietrich M.D. CONSULTATION REPORT ADMITTING PHYSICIAN Chadwick Alberts CONSULTING PHYSICIAN Dr. Alex Alejo REASON FOR CONSULTATION Severe left hip pain. HISTORY OF PRESENT ILLNESS This patient is a very pleasant 31-year-old female who I was asked to see in consultation by Dr. Almodovar for left hip pain. The patient reports she has had left hip pain that has been going on for 7 days now. The patient reports she has not suffered any trauma. The patient has not fallen. The patient reports her pain is all in her left groin area and some in her buttocks area but does not radiate down the back of her leg. Most of her pain is in her left groin area. She rates her pain as 10 on a scale of 1-10. Her pain is definitely worse with weight bearing/ambulation. The patient reports the pain is more of a sharp stabbing sensation than a dull ache. She denies any numbness, tingling, fever or chills. She does admit to some instability because of this pain. The pain does report she has a chronic pain syndrome. PAST MEDICAL HISTORY 1. Autoimmune hepatitis. 2. End stage cirrhosis. 3. Portal hypertension. 4. Esophageal varices. 5. Abdominal wall varices. 6. Pancytopenia. 7. Ascites requiring frequent taps. 8. History of ESBL bacteria. 9. History of MRSA. 10. History of C. diff. 11. Nonischemic cardiomyopathy with ejection fraction of 45-50. 12. Migraine headaches. 13. Substance abuse. 14. Tobacco abuse. 15. Narcotic dependency. PAST SURGERIES Multiple tattoos in multiple areas of her body. SOCIAL HISTORY Unit #: [id number] #: [id number] Patient: CARIN HEMPHILL The patient lives at home. She does deny any alcohol or tobacco use at this point. Apparently she lives with her mother. FAMILY HISTORY Notable for prostate cancer, diabetes, hypertension. ALLERGIES Allergies to Tylenol, codeine, ELOY inhibitors, aspirin, Aldactone and Zofran. HOME MEDICATIONS 1. Protamine. 2. Lactulose. 3. Mag oxide. 4. Xifaxan. 5. Phenergan. 6. Seroquel. 7. Atarax. 8. Nadolol. 9. Zinc sulfate. 10. Protonix. 11. Os-Nehemiah. 12. Klor-Con. 13. Vitamin B complex. 14. Citracal. 15. Oxycodone 20 mg every 8 hours. 16. Eplerenone. REVIEW OF SYSTEMS CONSTITUTIONAL: The patient admits to weight gain. She does have history of ascites. EYES: Denies any double vision or blurred vision. LUNGS: Denies any chronic cough or shortness of air. CARDIOVASCULAR: Denies any chest pain or irregular heartbeat. ABDOMEN: Admits to ascites but denied any nausea or vomiting today. MUSCULOSKELETAL: The patient does admit to left hip pain, especially in the left groin area. SKIN: Denies any rashes or lesions. Does admit to multiple tattoos. 12 complete systems in total were reviewed and negative other than above. PHYSICAL EXAM GENERAL: She is well developed, well nourished in no acute distress. VITAL SIGNS: Her temperature is 97.2, blood pressure 98/46, heart rate is 88 and regular, respirations 17. HEENT: Normocephalic, atraumatic. GABE. Extraocular movements intact. Conjunctivae clear. NECK: Her neck was supple. No JVD, no lymphadenopathy. CARDIAC: S1, S2. LUNGS: Clear to auscultation. No accessory muscle use. Equal expansion bilaterally. ABDOMEN: Her abdomen is distended, nontender. EXTREMITIES: No clubbing, cyanosis, edema. MUSCULOSKELETAL: Gait not appreciated. Examination of her left hip revealed no obvious deformities noted. No mass or effusion. The patient did have pain with range of motion and decreased range of motion due to the pain. The patient did have a positive log roll, especially pointed to pain in her left groin area. Her quad and hamstring strength 4/5. Unit #: [id number] #: [id number] Patient: CARIN HEMPHILL SKIN: No rashes or lesions. Had multiple tattoos. NEUROLOGIC/LIMITED ORTHOPEDIC EXAM: Cranial II-XII were grossly intact. DIAGNOSTIC STUDIES IMAGING: Imaging of her left hip did not show any acute fracture. There is some mild osteophyte formation. Ultrasound of left lower extremity showed no DVT. ASSESSMENT 1. Left hip pain. 2. Hypokalemia. PLAN We will move forward with an MR arthrogram to evaluate impingement versus labrum tear. Will make further recommendations based upon this test. Dictated by... Andrew Jacobs P.A.-C- for Alex Alejo M.D. LEISA/manasa TD: 02/09/2017 08:34 JOB #: [id number] CONSULTATION REPORT Page 1 of 1 X X CONSULTATION REPORT
--- NOTE | ~2017-02-07 | XA30 ---
[facility] A Service of [facility] RADIOLOGY TEXT RESULTS PATIENT: CARIN HEMPHILL LOCATION: A : 87 UNIT #: [id number] AGE: [address]: Luiz Thompson MD SEX: F ORDER DR: [id number] [place] [id number] [facility]. [place], [place] [address] [id number] I MR#: [id number] Acc #: [id number] NAME: CARIN HEMPHILL : 1985 SEX: F STUDY DATE/TIME: 02/11/2017 9:49 UNIT: [facility] ROOM: [facility] STUDY DESCRIPTION: XA Arthrocentesis Major Joint Attending Physician: Luiz Thompson M.D. Ordering Physician: Sunil Brand M.D. Primary Care Physician: Daniel Dietrich M.D. MEDICAL IMAGING REPORT This report is preliminary unless electronic signature is present PROCEDURE Left SI joint aspiration. INDICATIONS 31-year-old female with history of fluid around her left SI joint suspicious for infection. The fluoroscopy time was 1 minute. One spot image was taken. Risks, benefits, and alternatives of the procedure were discussed with the patient and informed consent was obtained. In the procedure room, a time-out was performed confirming correct patient and procedure. All elements of maximum sterile-barrier technique utilized according to guidelines appropriate for the procedure. TECHNIQUE/FINDINGS Skin overlying the left SI joint was prepped and draped in usual sterile fashion with 2% Chlorhexidine and 1% lidocaine utilized to anesthetize the skin and underlying subcutaneous tissues. Next, under fluoroscopic guidance, a 22-gauge needle was advanced into the left SI joint space; however, no fluid was able to be aspirated. The needle was removed and a sterile dressing was applied. No immediate complications. IMPRESSION Attempted left SI joint aspiration yielded no fluid. Dictated by... Gatito Gallegos M.D. THIS IS AN ELECTRONICALLY VERIFIED REPORT Gatito Gallegos M.D. at 02/16/2017 11:21 AM [facility] A Service of [facility] & [facility] RADIOLOGY TEXT RESULTS PATIENT: CARIN HEMPHILL LOCATION: [place] [address] : [birth year] UNIT #: [id number] AGE: [address]: Luiz Thompson MD SEX: F ORDER DR: TD: 02/12/2017 06:24 JOB #: [id number] MEDICAL IMAGING REPORT Page 1 of 1 COPY
--- NOTE | ~2017-02-07 | MR152 ---
[facility] A Service of [facility] RADIOLOGY TEXT RESULTS PATIENT: CARIN HEMPHILL LOCATION: C2A - : 87 UNIT #: [id number] AGE: [address]: Luiz Thompson MD SEX: F ORDER DR: [id number] [facility] [address]. [place], [place] [address] [id number] I MR#: [id number] Acc #: [id number] NAME: CARIN HEMPHILL. : 1985 SEX: F STUDY DATE/TIME: 02/09/2017 13:54 UNIT: [facility] ROOM: [facility] STUDY DESCRIPTION: MR Pelvis Wo Contrast Attending Physician: Luiz Thompson M.D. Ordering Physician: Luiz Thompson M.D. Primary Care Physician: Daniel Dietrich M.D. MRI CENTER REPORT This report is preliminary unless electronic signature is present. EXAM MRI of the pelvis. HISTORY 31-year-old female multiple medical problems to include autoimmune hepatitis and cirrhosis, substance abuse. Complains of left hip pain for 5 days, sudden onset. COMPARISON Left hip/pelvic films 02/07/2017. FINDINGS Multiplanar, multiecho imaging was performed of the hips and pelvis utilizing a high-field magnet dedicated protocol. Minimal deformity of both femoral necks with slightly diminished head/neck offset could represent a component of dysplasia and contribute to cam-type femoral acetabular impingement, though no significant arthropathy is identified at this time. Patient does demonstrate a small amount of joint fluid bilaterally. However, this is nonspecific in the setting of generalized anasarca, which the patient has. No marrow edema is identified. No findings to suggest avascular necrosis of the hips or findings to suggest septic arthritis of the hips. There is a small amount of fluid the left SI joint with marrow edema along the left anterior sacrum, and a small amount of edema and fluid anterior to the left SI joint. Findings are nonspecific, but in a high-risk patient, this could reflect developing septic arthritis of the SI joint. Massive ascites. Generalized anasarca with diffuse subcutaneous edema. Moderate amount of nonspecific edema within the pelvic musculature. Multiple enlarged left inguinal nodes, nonspecific in this patient with multiple medical problems. Visualized vascular structures unremarkable. Bladder and uterus unremarkable. The visualized GI tract unremarkable though not well evaluated by MR. NIRU VALE. [facility] A Service of [facility] RADIOLOGY TEXT RESULTS PATIENT: CARIN HEMPHILL LOCATION: [place] [address] : [birth year] UNIT #: [id number] AGE: [address]: Luiz Thompson MD SEX: F ORDER DR: 1. Abnormal left SI joint with a small amount of fluid in the SI joint as well as the adjacent marrow edema predominately along the left anterior buster-sacrum. In this patient with left hip pain and multiple risk factors for infection, this raises a concern for possible septic arthritis. No evidence of bone destruction. 2. Minimal fluid within both hip joints are nonspecific in this patient with generalized anasarca. No findings to suggest septic arthritis of the hip. There may be minimal dysplasia of the hip joints, but unlikely to be a significant clinical factor. 3. Large amount of ascites with generalized anasarca and a moderate amount of nonspecific edema within the gluteal musculature. Dictated by... Aminata Gallegos M.D. THIS IS AN ELECTRONICALLY VERIFIED REPORT Aminata Gallegos M.D. at 02/10/2017 7:56 AM Nikita TD: 02/10/2017 01:11 JOB #: [id number] MRI CENTER REPORT Page 1 of 1 COPY
--- NOTE | ~2017-02-07 | US85 ---
[facility] A Service [facility] RADIOLOGY TEXT RESULTS PATIENT: CARIN HEMPHILL LOCATION: [facility] : 87 UNIT #: [id number] AGE: [address]: Chadwick Alberts MD SEX: F ORDER DR: [id number] [facility] [address]. [place], [place] [address] [id number] I MR#: [id number] Acc #: [id number] NAME: CARIN HEMPHILL. : 1985 SEX: F STUDY DATE/TIME: 02/07/2017 16:49 UNIT: C5B ROOM: [facility] STUDY DESCRIPTION: US LE Veins Unilat or Ltd Stdy Attending Physician: Chadwick Alberts M.D. Ordering Physician: Pernell Figueroa D.O. Primary Care Physician: Daniel Dietrich M.D. MEDICAL IMAGING REPORT This report is preliminary unless electronic signature is present EXAM Lower extremity ultrasound for DVT on the left, 02/07/2017. INDICATION Hip pain for 5 days. TECHNIQUE Rosen-scale, color Doppler, and spectral analysis of the left lower extremity was performed. COMPARISON There are no relevant comparisons. FINDINGS There is generalized edema, nonspecific. No evidence of DVT in the left lower extremity. The technologist has placed calipers upon a small fluid collection in the left groin measuring 2.5 x 1.9 cm. There is no detectable internal color-flow and this is entirely nonspecific. Correlate with any history of recent intervention and physical exam findings in this regard. No DVT in the left lower extremity. IMPRESSION 1. No DVT in the left lower extremity. 2. Nonspecific crescentic fluid collection in the left groin region measures 2.5 x 1.9 cm. Correlate with surgical history and physical exam. Dictated by... Magan Fernandez M.D. [facility] A Service [facility] RADIOLOGY TEXT RESULTS PATIENT: CARIN HEMPHILL LOCATION: [facility] : 87 UNIT #: [id number] AGE: [address]: Chadwick Alberts MD SEX: F ORDER DR: THIS IS AN ELECTRONICALLY VERIFIED REPORT Magan Fernandez M.D. at 02/07/2017 10:46 PM ERIC/nohemy TD: 02/07/2017 21:21 JOB #: [id number] MEDICAL IMAGING REPORT Page 1 of 1 COPY
--- NOTE | ~2017-02-07 | HP ---
Unit #: [id number] #: [id number] Patient: CARIN HEMPHILL [id number] [address] [address] [id number] I MR#: [id number] NAME: CARIN HEMPHILL. ROOM: [facility] Age: 31 Sex: F Admission Date: 02/07/2017 : 1985 Attending Physician: Chadwick Alberts M.D. Primary Care Physician: Daniel Dietrich M.D. HISTORY AND PHYSICAL CHIEF COMPLAINT Hip pain. HISTORY OF PRESENT ILLNESS Patient is a 31-year-old female who presented to [facility] Emergency Department with left hip pain. She states it has been there for 2 days, progressive, worse with movement, no alleviating factors. PAST MEDICAL HISTORY 1. Autoimmune hepatitis. 2. Endstage cirrhosis. 3. Portal hypertension. 4. Esophageal varices. 5. Abdominal wall varices. 6. Pancytopenia. 7. Ascites requiring frequent taps. 8. History of ESBL bacteremia. 9. History of MRSA. 10. History of C. diff. colitis. 11. Nonischemic cardiomyopathy with ejection fraction 45 to 50%. 12. Migraine headaches. 13. Substance abuse. 14. Tobacco abuse. 15. Narcotic dependence. PAST SURGICAL HISTORY 1. SOCIAL HISTORY The patient lives at home. Denies alcohol or illicit drug use. Denies tobacco use. Patient lives with mom. FAMILY HISTORY Hypertension, diabetes, prostate cancer. ALLERGIES Tylenol, codeine, ELOY inhibitors, aspirin, Aldactone, Zofran. HOME MEDICATIONS Protamine, lactulose, Mag-Ox, Xifaxan, Phenergan, Seroquel, Atarax, nadolol, eplerenone, zinc sulfate, Protonix, Os-Nehemiah, Klor-Con, vitamin B complex, calcitriol, oxycodone 20 mg p.o. q.8 hours. REVIEW OF SYSTEMS Unit #: [id number] #: [id number] Patient: CARIN HEMPHILL Ten-point review of systems obtained; negative except as per HPI with the addition of some abdominal swelling/bloating. PHYSICAL EXAM VITAL SIGNS: Temperature 99.7, pulse 111, blood pressure 115/71. GENERAL: 31-year-old female in no acute distress. Appears stated age. HEENT: Pupils equally round. Extraocular movements intact. Mucous membranes dry. NECK: Supple. No JVD. No lymphadenopathy. CARDIAC: Regular rate and rhythm. No murmurs, gallops or rubs. LUNGS: Clear to auscultation bilaterally. ABDOMEN: Distended, nontender. EXTREMITIES: No clubbing, cyanosis or edema. Warm and dry. PSYCH: Alert and oriented x3. Affect is appropriate. NEUROLOGICAL: Cranial nerves II-XII intact grossly. Patient moves all extremities equally and with purpose. SKIN: No rashes, bruises or ulcers. MUSCULOSKELETAL: No muscle or joint pain. No muscle or joint swelling. DIAGNOSTIC STUDIES LABORATORIES: Patient's potassium is 2.1, sodium 132, magnesium 1.3. Hemoglobin 8.6. IMAGING: Two views of the left hip shows no acute fracture or dislocation. There is mention of premature sclerosis and mild osteophyte formation. Ultrasound of the left lower extremity shows no DVT. Left upper extremity shows no DVT, as well. ASSESSMENT AND PLAN 1. Hypokalemia. The patient's potassium is 2.1. She has been admitted for replacement. The plan will be to discharge her once her potassium is replaced. 2. Hypomagnesemia. The plan is replacement, as well. 3. Left hip pain. Likely secondary to the osteophyte formation, as mentioned. Continue pain medication. 4. Prophylaxis. Patient has been admitted for observation. No DVT prophylaxis at this time. 1. Dictated by Dave Cardoza/otis TD: 02/07/2017 20:32 JOB #: [id number] Unit #: [id number] #: [id number] Patient: CARIN HEMPHILL HISTORY AND PHYSICAL Page 1 of 1 X Chadwick Alberts MD HISTORY AND PHYSICAL
--- NOTE | ~2017-02-07 | DS ---
Unit #: [id number] #: [id number] Patient: CARIN HEMPHILL [id number] [address] [address] [id number] I MR#: [id number] NAME: CARIN HEMPHILL. ROOM: 225 Age: 31 Sex: F Admission Date: 02/07/2017 : 1985 Discharge Date: 02/12/2017 Attending Physician: Luiz Thompson M.D. Primary Care Physician: Daniel Dietrich M.D. DISCHARGE SUMMARY REASON FOR ADMISSION Intractable left hip pain. HISTORY OF PRESENT ILLNESS/HOSPITAL COURSE The patient is a 31-year-old female with an underlying history of autoimmune hepatitis with end-stage cirrhosis, longstanding history of noncompliance, recurrent hospital admissions secondary to chronic pain syndrome, who presented secondary to intractable left hip pain. Through initial laboratory studies, she was noted to be profoundly hypokalemic with a potassium of 2.1. She was subsequently admitted. Her potassium was appropriately replaced today at time of discharge and is currently clinically stable. In regard to her left hip pain, she ultimately underwent an ultrasound of her lower extremity, which was negative for occult DVT. Consultation was placed to orthopedic services and the patient underwent an MRI of pelvis, which did reveal abnormal left SI joint with small amount of fluid in the SI joint as well as marrow edema concerning for possible underlying septic arthritis. The patient was subsequently then taken to IR for aspiration of the aforementioned joint. There was no fluid, which was present. Dr. Brand and associates continued to follow the patient through her hospital course and stated that the findings on MRI were likely consistent and secondary to bone marrow edema and/or chronic changes. No acute intervention was recommended. Conservative management was recommended with appropriate outpatient followup in 6 to 8 weeks. The patient did have an abnormal urinalysis on day of admission following a urine culture result did reveal VRE with sensitivity to Macrobid to which she was given a prescription for it at the time of discharge. Overall long-term prognosis of this patient is poor. Chance of readmission is high secondary to longstanding history of noncompliance as well as poor likelihood of followup. DIAGNOSTIC STUDIES LABORATORY RESULTS: Final discharge hemoglobin 7.6, platelets 33, WBC count 3.7. Potassium 5.2, magnesium 1.8 at time of discharge. FINAL DISCHARGE DIAGNOSES 1. Left hip pain/likely osteoarthritis. Unit #: [id number] #: [id number] Patient: CARIN HEMPHILL 2. Vancomycin-resistant Enterococcus urinary tract infection. 3. Hypokalemia on admission, now resolved. 4. Autoimmune hepatitis. 5. End-stage cirrhosis. 6. Portal hypertension. 7. Varices of the esophagus. 8. Abdominal wall varices. 9. Chronic pancytopenia. 10. Ascites. 11. Prior history of extended spectrum beta-lactamase bacteremia. 12. Prior history of methicillin-resistant Staphylococcus aureus. 13. Prior history of Clostridium difficile colitis. 14. Nonischemic cardiomyopathy, ejection fraction of 45% to 50%. 15. Narcotic dependence. 16. Chronic pain syndrome. 17. Substance abuse. 18. Tobacco abuse. FINAL DISCHARGE MEDICATIONS Amiodarone 10 mg p.o. q.8; lactulose q.6 hours; MAGnesium-Oxide 400 mg p.o. b.i.d.; Xifaxan 550 mg p.o. b.i.d.; Phenergan 25 mg p.o. q.4 p.r.n.; Seroquel 50 mg p.o. q.h.s.; Atarax 25 mg p.o. daily p.r.n.; nadolol 40 mg p.o. daily; eplerenone 50 mg p.o. daily; zinc sulfate 220 mg p.o. daily; oxycodone 20 mg p.o. q.8 p.r.n.; Protonix 40 mg p.o. b.i.d.; Os-Nehemiah 500 mg p.o. b.i.d.; potassium chloride 40 mEq p.o. daily; calcitriol 0.25 mcg p.o. daily; vitamin B complex daily; Macrobid 100 mg p.o. b.i.d. x7 days. DISCHARGE INSTRUCTIONS The patient is to follow up with PCP for BMP, repeat urinalysis as well as CBC. The patient is to follow up at [facility] for evaluation of possible liver transplant. Dictated by... Dave Cabrera/mika TD: 02/16/2017 02:43 JOB #: [id number] DISCHARGE SUMMARY Page 1 of 1 X Luiz Thompson MD DISCHARGE SUMMARY
[2017-02-07 13:51] LABS: BASOPHIL% 0.5 % (0-2.5); EOSINOPHIL# 0.2 X10e3 (0-0.7); EOSINOPHIL% 3.6 % (0.0-7.0); HEMATOCRIT 23.9 % (35.0-45.0); HEMOGLOBIN 8.6 gm/dL (12.0-16.0); LYMPHOCYTE# 0.6 X10e3 (1.0-3.5); LYMPHOCYTE% 12.1 % (17.0-45.0); MEAN CELL VOLUME 94.5 FL (83-96); MEAN CORPUSCULAR HEMOGLOBIN 33.8 PG (28-34); MEAN CORPUSCULAR HGB CONC 35.8 g/dL (30-36); MEAN PLATELET VOLUME 9.7 FL (6.5-11.5); MONOCYTE# 0.7 X10e3 (0-1.0); MONOCYTE% 14.4 % (3.0-12.0); NEUTROPHIL# 3.5 X10e3 (1.5-7.1); NEUTROPHIL% 69.4 % (40-75); RED BLOOD COUNT 2.53 X10e (3.90-5.30); RED CELL DISTRIBUTION WIDTH 16.1 % (11.0-15.5)
[2017-02-07 13:58] LABS: INR 1.8; PARTIAL THROMBOPLASTIN TIME 68.1 SECONDS (23.5-31.3); PROTHROMBIN TIME (PATIENT) 19.9 SECONDS (10.0-11.7)
[2017-02-07 14:11] LABS: ALBUMIN SERUM 1.5 g/dL (3.5-5.0); BILIRUBIN, DIRECT 1.3 mg/dL (0.0-0.2); BILIRUBIN,INDIRECT 2.8 mg/dL (0.0-0.9); BILIRUBIN,TOTAL 4.1 mg/dL (0.2-2.0); CREATININE SERUM 0.5 mg/dL (0.6-1.4); GLOM FILT RATE Estimated 151.6 mL/min (>60); PROTEIN TOTAL SERUM 4.7 g/dL (6.0-8.3)
[2017-02-07 14:14] LABS: POTASSIUM 2.1 mmol/L (3.5-5.1)
[2017-02-07 14:38] LABS: DIFF IND YES; PLATELET COUNT 41 X10e3 (140-420)
[2017-02-07 14:44] LABS: PLATELET ESTIMATE DECREASED (NORMAL)
[2017-02-07 14:46] LABS: ANISOCYTOSIS SL; TARGET CELLS SL
[2017-02-07 15:28] LABS: URINE SOURCE CLEAN CATCH
[2017-02-07 15:35] LABS: URINE APPEARANCE CLEAR; URINE BLOOD NEG (NEG); URINE COLOR DK YELLOW; URINE GLUCOSE NEG (NEG); URINE KETONE NEG (NEG); URINE LEUKOCYTE ESTERASE 1+ (NEG); URINE NITRATE NEG (NEG); URINE PH 6.5 (5-8); URINE PROTEIN TRACE (NEG); URINE SPECIFIC GRAVITY 1.017 (1.003-1.035); URINE UROBILINOGEN 0.2 MG/DL (NEG)
[2017-02-07 15:37] LABS: CULTURE INDICATED? YES; URINE BACTERIA AUWI NEG (NEGATIVE); URINE SQUAMOUS EPITHELIAL CELL OCC /[HPF]
[2017-02-07 16:06] LABS: URINE BILIRUBIN POS (NEG)
[2017-02-07 16:12] LABS: U HYALINE CASTS AUWI 0-2 /[LPF]
[2017-02-08 08:29] LABS: MAGNESIUM 1.5 mg/dL (1.6-3.0)
[2017-02-08 08:42] LABS: POTASSIUM 2.9 mmol/L (3.5-5.1)
[2017-02-09 05:09] LABS: HEMATOCRIT 22.6 % (35.0-45.0); HEMOGLOBIN 7.9 gm/dL (12.0-16.0); MEAN CELL VOLUME 94.6 FL (83-96); MEAN CORPUSCULAR HEMOGLOBIN 33.1 PG (28-34); MEAN PLATELET VOLUME 9.4 FL (6.5-11.5); RED BLOOD COUNT 2.39 X10e (3.90-5.30); RED CELL DISTRIBUTION WIDTH 15.8 % (11.0-15.5); WHITE BLOOD COUNT 3.2 X10e3 (4.0-10.5)
[2017-02-09 05:35] LABS: CALCIUM SERUM 7.5 mg/dL (8.4-10.2); CREATININE SERUM 0.5 mg/dL (0.6-1.4); GLOM FILT RATE Estimated 151.6 mL/min (>60); MAGNESIUM 1.9 mg/dL (1.6-3.0); PHOSPHOROUS 1.5 mg/dL (2.5-4.6); POTASSIUM 3.7 mmol/L (3.5-5.1)
[2017-02-10 06:48] LABS: CREATININE SERUM 0.5 mg/dL (0.6-1.4); GLOM FILT RATE Estimated 151.6 mL/min (>60); MAGNESIUM 2.1 mg/dL (1.6-3.0); POTASSIUM 4.3 mmol/L (3.5-5.1)
[2017-02-11 07:38] LABS: HEMATOCRIT 24.2 % (35.0-45.0); HEMOGLOBIN 8.6 gm/dL (12.0-16.0); MEAN CELL VOLUME 94.4 FL (83-96); MEAN CORPUSCULAR HEMOGLOBIN 33.6 PG (28-34); MEAN CORPUSCULAR HGB CONC 35.6 g/dL (30-36); MEAN PLATELET VOLUME 9.2 FL (6.5-11.5); RED BLOOD COUNT 2.57 X10e (3.90-5.30); RED CELL DISTRIBUTION WIDTH 16.2 % (11.0-15.5); WHITE BLOOD COUNT 4.9 X10e3 (4.0-10.5)
[2017-02-11 08:11] LABS: CALCIUM SERUM 8.6 mg/dL (8.4-10.2); CREATININE SERUM 0.5 mg/dL (0.6-1.4); GLOM FILT RATE Estimated 151.6 mL/min (>60); MAGNESIUM 1.9 mg/dL (1.6-3.0); POTASSIUM 5.1 mmol/L (3.5-5.1)
[2017-02-12 05:13] LABS: HEMATOCRIT 21.7 % (35.0-45.0); HEMOGLOBIN 7.6 gm/dL (12.0-16.0); MEAN CELL VOLUME 94.8 FL (83-96); MEAN CORPUSCULAR HEMOGLOBIN 33.2 PG (28-34); MEAN PLATELET VOLUME 9.4 FL (6.5-11.5); RED BLOOD COUNT 2.28 X10e (3.90-5.30); RED CELL DISTRIBUTION WIDTH 15.6 % (11.0-15.5); WHITE BLOOD COUNT 3.7 X10e3 (4.0-10.5)
[2017-02-12 05:44] LABS: BUN/CREATININE RATIO 13.33; CALCIUM SERUM 8.7 mg/dL (8.4-10.2); CREATININE SERUM 0.6 mg/dL (0.6-1.4); GLOM FILT RATE Estimated 142.8 mL/min (>60); MAGNESIUM 1.8 mg/dL (1.6-3.0); POTASSIUM 5.2 mmol/L (3.5-5.1)
[2017-02-12] MEDS ORDERED: DEXFOL PO (13:47)
[2017-02-12] MEDS ORDERED: MACROBID100 M1 PO (13:54)
== END 2017-02-12 18:00 | disposition home or self-care (01) | DRG 553 ==
LOC: CED 12:30 → C2A 15:55 → CEDOF 15:55 → C5B 15:55 → CED 16:17 → CEDOF 16:17 → C5B 18:07 → C2A 02-09 22:20 → C5B 02-09 22:20 → C2A 02-12 18:00
PROVIDERS: Emergency Medicine; Family Medicine; Internal Medicine
PROC: 0YJ Anatomical Regions, Lower Extremities, Inspection (ICD-10-PCS; principal; 2017-02-11)
DX: M16.12 Unilateral primary osteoarthritis, left hip (principal); E43 Unspecified severe protein-calorie malnutrition; D61.818 Other pancytopenia; R18.8 Other ascites; K76.6 Portal hypertension; N39.0 Urinary tract infection, site not specified; B95.2 Enterococcus as the cause of diseases classified elsewhere; Z16.21 Resistance to vancomycin; K75.4 Autoimmune hepatitis; K74.60 Unspecified cirrhosis of liver; G89.4 Chronic pain syndrome; F17.210 Nicotine dependence, cigarettes, uncomplicated; G43.909 Migraine, unspecified, not intractable, without status migrainosus; Z83.3 Family history of diabetes mellitus; Z82.49 Family history of ischemic heart disease and other diseases of the circulatory system; Z80.42 Family history of malignant neoplasm of prostate; Z88.6 Allergy status to analgesic agent; Z88.8 Allergy status to other drugs, medicaments and biological substances; R62.7 Adult failure to thrive; E87.6 Hypokalemia
CPT/HCPCS: 36415; 72195; 73502; 77002; 80048; 80076; 81003; 83690; 83735; 84100; 84132; 84703; 85025; 85027; 85610; 85730; 87086; 87088; 87186; 93971; 97110; 97140; 97161; 97530; 99285; G8978-GP; G8979-GP; J1170; J2060; J2930; J3475

== ENCOUNTER 2017-02-14 08:53 | Emergency (ER) | payer OTHER ==
[~2017-02-14] VITALS: Ht 188 cm; Wt 77.8 kg
[~2017-02-14 08:53] MED LIST changes: +DEXFOL PO; +MACROBID100 M1 PO
[2017-02-14 10:07] LABS: URINE SOURCE CLEAN CATCH
[2017-02-14 10:11] LABS: URINE APPEARANCE CLOUDY; URINE BILIRUBIN NEG (NEG); URINE BLOOD TRACE (NEG); URINE COLOR YELLOW; URINE GLUCOSE NEG (NEG); URINE KETONE NEG (NEG); URINE LEUKOCYTE ESTERASE 1+ (NEG); URINE NITRATE NEG (NEG); URINE PH 6.5 (5-8); URINE PROTEIN NEG (NEG); URINE SPECIFIC GRAVITY 1.015 (1.003-1.035); URINE UROBILINOGEN 0.2 MG/DL (NEG)
[2017-02-14 10:13] LABS: CULTURE INDICATED? YES; URINE BACTERIA AUWI NEG (NEGATIVE); URINE SQUAMOUS EPITHELIAL CELL OCC /[HPF]
[2017-02-14 10:22] LABS: URINE GRANULAR CAST 0-2 /[HPF]
[2017-02-14 11:12] LABS: BASOPHIL% 0.3 % (0-2.5); EOSINOPHIL# 0.1 X10e3 (0-0.7); HEMATOCRIT 24.1 % (35.0-45.0); HEMOGLOBIN 8.6 gm/dL (12.0-16.0); LYMPHOCYTE# 0.8 X10e3 (1.0-3.5); LYMPHOCYTE% 10.5 % (17.0-45.0); MEAN CORPUSCULAR HEMOGLOBIN 34.1 PG (28-34); MEAN CORPUSCULAR HGB CONC 35.9 g/dL (30-36); MEAN PLATELET VOLUME 9.2 FL (6.5-11.5); MONOCYTE# 0.6 X10e3 (0-1.0); MONOCYTE% 8.3 % (3.0-12.0); NEUTROPHIL# 5.8 X10e3 (1.5-7.1); NEUTROPHIL% 78.9 % (40-75); RED BLOOD COUNT 2.53 X10e (3.90-5.30); WHITE BLOOD COUNT 7.3 X10e3 (4.0-10.5)
[2017-02-14 11:15] LABS: DIFF IND YES; PLATELET COUNT 33 X10e3 (140-420)
[2017-02-14 11:44] LABS: ALBUMIN SERUM 1.5 g/dL (3.5-5.0); BILIRUBIN, DIRECT 1.3 mg/dL (0.0-0.2); BILIRUBIN,INDIRECT 1.9 mg/dL (0.0-0.9); BILIRUBIN,TOTAL 3.2 mg/dL (0.2-2.0); CALCIUM SERUM 8.2 mg/dL (8.4-10.2); CREATININE SERUM 0.5 mg/dL (0.6-1.4); GLOM FILT RATE Estimated 151.6 mL/min (>60); POTASSIUM 3.9 mmol/L (3.5-5.1); PROTEIN TOTAL SERUM 4.9 g/dL (6.0-8.3)
[2017-02-14 12:09] LABS: ANISOCYTOSIS SL; PLATELET ESTIMATE DECREASED (NORMAL)
[2017-02-14 12:10] LABS: MICROCYTOSIS SL; POIKILOCYTOSIS SL
== END 2017-02-14 12:30 | disposition home or self-care (01) ==
LOC: CED 08:53
PROVIDERS: Emergency Medicine
DX: D69.6 Thrombocytopenia, unspecified (principal); I12.9 Hypertensive chronic kidney disease with stage 1 through stage 4 chronic kidney disease, or unspecified chronic kidney disease; N18.9 Chronic kidney disease, unspecified; G43.909 Migraine, unspecified, not intractable, without status migrainosus; Z98.890 Other specified postprocedural states; Z88.5 Allergy status to narcotic agent; Z79.899 Other long term (current) drug therapy
CPT/HCPCS: 36415; 80048; 80076; 81003; 82140; 82150; 83690; 85025; 87086; 99284